=== PATIENT | male | born 1935 | race Caucasian/White ===

== ENCOUNTER 2017-05-30 13:03 | Observation (INO) | payer MEDICARE, OTHER ==
[~2017-05-30] VITALS: Ht 180.3 cm; Wt 75.0 kg
--- OUTSIDE RECORDS SUMMARY | ~2017-05-30 | XMS | Clinical Summary ---
Demographics + + + | Address | [address] | | | [place] [address] | + + + | Home Phone | | + + + | Preferred Language | Unknown | + + + | Marital Status | | + + + | Bahai Affiliation | Unknown | + + + | Race | Unknown | + + + | Ethnic Group | Unknown | + + + Author + + + | Author | [facility] | | | and [place] | + + + | Organization | [facility] | | | and [place] | + + + | Address | Unknown | + + + | Phone | Unavailable | + + + Support + + +---------+ + | Name | Relationship | Address | Phone | + + +---------+ + | Juan M Diop | ECON | Unknown | | + + +---------+ + | REZA DAUGHERTY | ECON | Unknown | | + + +---------+ + Care Team Providers + +------+ + | Care Sweeper Driver Name | Role | Phone | + +------+ + | Paolo Pringle MD | PP | | + +------+ + Allergies No Known Allergies Current Medications + + +-------+---------+------+------+-------+ | Prescription | Sig. | Disp. | Refills | Star | End | Statu | | | | | | t | Date | s | | | | | | Date | | | + + +-------+---------+------+------+-------+ | Misc Natural | Take 1 tablet by | | | 01/03 | | Activ | | Products | mouth daily | | | 20 | | e | | (GLUCOSAMINE | | | | 10 | | | | CHONDROITIN ADV) | | | | | | | | TABS | | | | | | | + + +-------+---------+------+------+-------+ | levetiracetam | Take 2 by mouth | | | 01/03 | | Activ | | (KEPPRA) 750 MG | twice a day. | | | 11/22 | | e | | tablet | | | | 10 | | | + + +-------+---------+------+------+-------+ | losartan (COZAAR) | Take 50 mg by mouth | | | 01/03 | | Activ | | 50 mg tablet | Daily. | | | 11/22 | | e | | | | | | 10 | | | + + +-------+---------+------+------+-------+ | NIFEdipine (ADALAT | Take 30 mg by mouth | | | 01/03 | | Activ | | CC) 30 mg 24 hr | Daily. | | | 4/20 | | e | | tablet | | | | 10 | | | + + +-------+---------+------+------+-------+ | | Inhale 1 puff into | | | | | Activ | | albuterol-ipratropiu | the lungs 2 times | | | | | e | | m (COMBIVENT | daily. | | | | | | | RESPIMAT) 100-20 | | | | | | | | mcg/puff inhaler | | | | | | | + + +-------+---------+------+------+-------+ | finasteride | Take 5 mg by mouth | | | | | Activ | | (PROSCAR) 5 mg | Daily. | | | | | e | | tablet | | | | | | | + + +-------+---------+------+------+-------+ | ciprofloxacin | Take 250 mg by mouth | | | | | Activ | | (CIPRO) 250 mg | 2 times daily. | | | | | e | | tablet | | | | | | | + + +-------+---------+------+------+-------+ | | Take 1 tablet by | | | | | Activ | | sulfamethoxazole-tri | mouth 2 times daily. | | | | | e | | methoprim (BACTRIM | | | | | | | | DS) 800-160 mg per | | | | | | | | tablet | | | | | | | + + +-------+---------+------+------+-------+ Active Problems + + + | Problem | Noted Date | + + + | Acute pain of both knees | 01/23/2016 | + + + | DDD (degenerative disc disease), lumbar | 12/08/2015 | + + + | Foraminal stenosis of lumbar region | 12/08/2015 | + + + | Bilateral lumbar radiculopathy | 12/08/2015 | + + + | Chronic left shoulder pain | 12/08/2015 | + + + | SLEEP APNEA | | + + + | SEIZURE DISORDER, COMPLEX PARTIAL | | + + + Social History + +-------+ [...] + +---------+ + | Alcohol Use | Drinks/We | oz/Week | Comments | | | ek | | | + + +---------+ + | Yes | 0 | 0.0 | 1 beer per month | | | Standard | | | | | drinks or | | | | | | | | | | equivalen | | | | | t | | | + + +---------+ + + + + | Sex Assigned at | Date Recorded | | | | + + + | Not on file | | + + + Last Filed Vital Signs + + + + | Vital Sign | Reading | Time Taken | + + + + | Blood Pressure | 146/69 | 10/12/2016 1400 PST | + + + + | Pulse | 79 | 10/12/2016 1402 PST | + + + + | Temperature | 36.9 C (98.4 F) | 10/12/2016 1120 PST | + + + + | Respiratory Rate | 18 | 10/12/2016 1330 PST | + + + + | Oxygen Saturation | 98% | 10/12/2016 1402 PST | + + + + | Inhaled Oxygen | - | - | | Concentration | | | + + + + | Weight | 75.8 kg (167 lb) | 10/12/2016743 PST | + + + + | Height | 177.8 cm (5' 10") | 10/12/2016743 PST | + + + + | Body Mass Index | 23.96 | 10/12/2016743 PST | + + + + Plan of Treatment + + + + + | Health Maintenance | Due Date | Last Done | Comments | + + + + + | Vaccine: | | | | | Dtap/Tdap/Td (1 - | 6 | | | | Tdap) | | | | + + + + + | Vaccine: | | | | | Pneumococcal 65+ | 2 | | | | Low/Medium Risk (1 | | | | | of 2 - PCV13) | | | | + + + + + | Statin Therapy | | | | | (optimal intensity) | 5 | | | + + + + + | Vaccine: Influenza | | | | | (Season Ended) | 8 | | | + + + + + Results Not on filefrom Last 3 Months Insurance + +--------+ +--------+ +---------+ | Payer | Benefi | Subscriber | Type | Phone | Address | | | t Plan | ID | | | | | | / | | | | | | | Group | | | | | + +--------+ +--------+ +---------+ | MEDICARE | MEDICA | xxxxxxxxxx | Medica | [phone] | | | | RE | | re | [phone] | | | | PART A | | | | | | | AND B | | | | | + +--------+ +--------+ +---------+ | | TRICAR | xxxxxxxxx | Indemn | [phone] | | | | E FOR | | ity | [phone] | | | | LIFE | | | | | + +--------+ +--------+ +---------+ + +--------+ +--------+ + + | Guarantor Name | Accoun | Relation to | Date | Phone | Billing Address | | | t Type | Patient | of | | | | | | | | | | + +--------+ +--------+ + + | RACHNA DIOP | Person | Self [birth year] | Home: | [facility] | | | al/[address] | | [phone] | [phone] | [address] [place] | | | [place] | | | [phone] | + +--------+ +--------+ + +
--- OUTSIDE RECORDS SUMMARY | ~2017-05-30 | XMS | Clinical Summary ---
Demographics + + + | Address | [address] | | | [place] [address] | + + + | Home Phone | | + + + | Preferred Language | Unknown | + + + | Marital Status | Single | + + + | Temple Affiliation | Unknown | + + + [...] Team Providers + +------+ + | Care Steel Welder Name | Role | Phone | + +------+ + PP | Unavailable | + +------+ + Source Comments JOVANI is fully live on both [facility] and [facility] Allergies Not on File Current Medications Not on file Active Problems Not [...] on file | | + + + Plan of Treatment + + + + + | Health Maintenance | Due Date | Last Done | Comments | + + + + + | INFLUENZA VACCINE | | | | | (FLU SHOT) | 8 | | | + + + + + Results Not on filefrom Last 3 Months"
[~2017-05-30 13:03] MED LIST: ADALAT CC30 MG PO; ASPIRIN EC81 MG PO; CIPROFLOXACIN500 MG PO; COMBIVENT RESPIM4 GM INH; COZAAR50 MG PO; FINASTERIDE1 MG; FINASTERIDE5 MG PO; GLUCOSAMINE &1 EAC1 PO; KEFLEX500 MG PO; KEPPRA250 MG PO; KEPPRA750 MG PO; NIFEDIPINE20 MG PO; UROXATRAL10 MG PO; ZETIA10 MG PO
[2017-05-30] MEDS ORDERED: NIFEDIPINE ER30 M1 PO (14:05)
[2017-05-30] MEDS ORDERED: LOSARTAN POTASS50 MG PO (14:05)
[2017-05-30] MEDS ORDERED: B-12500 MCG PO (14:06)
--- NOTE | 2017-11-25 08:54 | NUR ---
11/25/17 0854 Brie Longoria 0843 PT ARRIVED IN PACU SLEEPY. CBI TURNED OFF AT THIS TIME.
--- NOTE | 2017-11-25 10:44 | NUR ---
PT PROVIDED JELLO AND WARM BLANKET. PT CBI CLAMPED OFF ON ARRIVAL TO DS RM 5. PT URINE RED WITH SMALL CLOT PRESENT IN CATHETER TUBING. CBI UNCLAMPED AND STARTED AGAIN. WILL MONITOR AND TITRATE IRRIGATION URINE GETS LIGHT PINK IN COLOR. PT GIVEN GLASSES AND CELL PHONE PER REQUEST. CALL LIGHT AT PT LEFT SIDE, NO C/O'S AT THIS TIME.
--- NOTE | 2017-11-25 10:56 | NUR ---
CARVALHO CATHETER EMPTIED OF 2025 MLS RED URINE. BP TAKEN AGAIN ON LEFT ARM, 156/81. LOWER THAN PREVIOUS ASSESSMENT.
--- NOTE | 2017-11-25 11:56 | NUR ---
[id number]: CARVALHO CATHETER EMPTIED OF 2450 RED URINE. CBI BAGS CHANGED AND IRRIGATION TITRATED. PT UP OUT OF BED AND AMBULATING HALLWAY WITH RN ASSIST. PT AMBULATES WELL AND STATES, "HE FEELS GOOD." DIETARY CALLED AND SOUP AND RADHA ORDERED FOR PT. PT RESTING IN BED WITH SCD'S IN PLACE AND CALL LIGHT AT LEFT SIDE WATCHING TV.
--- NOTE | 2017-11-25 12:29 | NUR ---
2450 MLS RED URINE EMPTIED FROM CBI CARVALHO. URING LIGHT RED, PINK TINGED IN TUBING, CBI SLOWED DOWN. PT LUNCH ARRIVED.
--- NOTE | 2017-11-25 12:54 | NUR ---
CARVALHO EMPTIED OF 2500 MLS PINK, RED URINE. CBI TUBING LIGHT PINK IN COLOR, CBI CLAMPED OFF. WILL MONITOR TUBING FOR 1 HR FOR LIGHT PINK TO CLEAR URINE. PT TOLERATES LUNCH WELL. ICED WATER REFILLED. CALL LIGHT REMAINS AT LEFT SIDE, PT RESTING IN BED WATCHING TV.
--- NOTE | 2017-11-25 13:38 | NUR ---
PT UP TO BR "WANTS TO DEFICATE" AMB WELL. CATHETER RED WITH SEDIMENT IN TUBING. NOT TOLERATING CBI BEING CLAMPED.
--- NOTE | 2017-11-25 14:34 | NUR ---
CARVALHO EMPTIED OF 950 MLS BRIGHT RED URINE. NEW BAGS HUNG ON CBI. CBI FLOWING ON FAST DRIP FROM ONE BAG. PT RESTING IN BED WATCHING TV, CALL LIGHT AT SIDE.
--- NOTE | 2017-11-25 14:37 | NUR ---
CALLED DR. KAY' OFFICE. SPOKE TO SHYANN REGARDING PT NOT TOELRATING CLAMPED CBI. WILL CONTINUE TO MONITOR AND AWAIT ORDERS FROM .
--- NOTE | 2017-11-25 15:11 | NUR ---
[id number]: DR. KAY IN PT ROOM TO ASSESS CBI. VERBAL ORDERS TO KEEP CBI CLAMPED, HANG NEW BAG OF LR FOR 75ML/HR AND NOTIFY HER IN 45 MINUTES OF OUTPUT. EMPTIED 900 MLS BRIGHT RED URINE FROM CARVALHO BAG. 1515: DR. KAY CALLED DS UNIT AND WOULD LIKE PT ON SLOW IRRIGATION AND HAS DECIDED TO ADMIT HIM OVERNIGHT TO MS UNIT FOR FURTHER OBSERVATION. DR. KAY STATES SHE WILL PUT IN ORDERS FOR CBC AND BMP LABS IN AM. SEE NEW ORDERS.
--- NOTE | 2017-11-25 15:12 | OR ---
[facility] [address] [place], [place] [address] Signed DATE OF OPERATION: 11/25/2017 SURGEON: Demetria Kay MD PREOPERATIVE DIAGNOSES: 1. History of benign prostatic hypertrophy with lower urinary tract symptoms. 2. Long-standing bladder outlet obstruction. 3. Regrowth of prostate adenoma, status post laser transurethral resection of the prostate. POSTOPERATIVE DIAGNOSES: 1. History of benign prostatic hypertrophy with lower urinary tract symptoms. 2. Long-standing bladder outlet obstruction. 3. Regrowth of prostate adenoma, status post laser transurethral resection of the prostate. 4. Bladder mass. NAMES OF PROCEDURES: 1. Transurethral resection of the prostate, limited. 2. Transurethral resection of bladder tumor-small. 3. Urethral dilation. ANESTHESIA: Spinal. ESTIMATED BLOOD LOSS: Minimal. COMPLICATIONS: None. SPECIMENS: 1. Prostate chips from regrowth of prostatic adenoma, sent to pathology for evaluation. 2. Fragments of bladder mass, also sent to pathology for evaluation. DRAINS: A 22-Uzbek 3-way Lenz catheter, connected to low-flow continuous bladder irrigation. INDICATIONS FOR PROCEDURE: Mr. Diop is a very pleasant 82-year-old gentleman with a history of BPH with lower Electronically Signed By: DEMETRIA KAY MD 11/25/17 1512 PATIENT NAME: RACHNA DIOP OPERATIVE REPORT DATE OF : 37 REPORT #: [id number] PHYSICIAN: DEMETRIA KAY MD PCP: LISA BOUDREAUX MD REPORT IS CONFIDENTIAL AND NOT TO BE RELEASED WITHOUT AUTHORIZATION [facility] [address] [place], [place] [address] Signed urinary tract symptoms, who presented to my clinic late last year with complaints of recurrence of his weak force of stream and difficulties emptying his bladder. He had undergone a laser TURP in the past. In April of 2017, he underwent a diagnostic cystoscopy, which revealed regrowth of the prostatic adenoma on the left lateral wall of the prostatic urethra. At that time, cystoscopy revealed no other abnormalities. He presents today to undergo resection of the regrowth of his prostatic adenoma. OPERATIVE FINDINGS: 1. On cystoscopy, the patient has a diffuse grade 3 to 4 bladder wall trabeculation noted. Bilateral ureteral orifices are noted to be in their normal anatomic location effluxing urine. Of note, there was an approximately 3 mm papillary bladder mass located just medial and superior to the right ureteral orifice. 2. Ureteroscopy reveals the presence of regrowth of prostatic adenoma, mostly on the left lateral wall of the prostate. During today's resection, I removed the regrowth of adenomatous tissue in the left lateral wall of the prostate, along with circumferentially around the bladder neck. 3. The 3 mm bladder tumor was resected carefully as it was just medial to the left ureteral orifice. After resection, I cauterized the biopsy bed. All the while being sure that there was no damage to the right ureteral orifice done. At the end of the resection and cauterization of the bladder mass, IV fluorescein was given, which confirmed adequate efflux of urine from the right ureteral orifice. 4. At the end of the procedure, a 22-Uzbek 3-way Lenz catheter was inserted into the patient's bladder, and connected to a low-flow CBI. DESCRIPTION OF PROCEDURE: After informed consent was obtained, the patient was taken back to the operating room. He was transferred from the gurney to the operating room table, where spinal anesthesia was induced. He was placed in the dorsal lithotomy position and his genitalia were prepped and draped in standard sterile fashion. His urethra was dilated from 22 to 32-Uzbek with using Mary sounds without difficulty. After the patient's urethra was adequately dilated, the resectoscope was inserted via a 26-Uzbek sheath without difficulty. Repeat cystoscopy was performed. Please see the findings. I began my resection of the prostatic adenoma using a bipolar loop and focus primarily on the left lateral wall of the prostate. Once that was adequately resected, I did re-resect the bladder neck and a portion of the right lateral wall of the prostatic urethra. I then removed the loop and replaced with bipolar button at which point in time, I cauterized the prostatic urethra circumferentially thereafter. There was a small amount of prostate chips that I collected and sent to pathology for evaluation. I then focused my attention on the bladder mass. I removed the bipolar button and placed the loop back into the resectoscope. I then resected the small papillary mass just medial to the right ureteral orifice very carefully. I did resect down to level of bladder muscle in the trigone area. The specimen was sent in a separate specimen cup to pathology. I Electronically Signed By: DEMETRIA KAY MD 11/25/17 6630 PATIENT NAME: RACHNA DIOP OPERATIVE REPORT DATE OF : 37 REPORT #: [id number] PHYSICIAN: DEMETRIA KAY MD PCP: LISA BOUDREAUX MD REPORT IS CONFIDENTIAL AND NOT TO BE RELEASED WITHOUT AUTHORIZATION [address] [address] Signed then very carefully cauterized the area, all the while keeping an eye on the right ureteral orifice. Once I was finished with cauterization, I asked Anesthesia to give the patient fluorescein, which was then noted to be effluxing from both the right and left ureteral orifices. Once I was satisfied with both resections, the patient's bladder was then drained and a 22-Uzbek 3-way Lenz catheter was then inserted and connected to low-flow continuous bladder irrigation. The procedure was then terminated. The patient tolerated the procedure well without any complication. He will now be transferred to the postanesthesia care unit in stable condition. DISPOSITION: Since the amount of resection of the prostate was minimal today, I do believe that the patient will be stable enough to be discharged home later this afternoon in the company of his family. He will be discharged to home with his 3-way catheter to gravity drainage. He has been scheduled to return to clinic this to undergo a voiding trial with catheter removal. He will be sent home today with Cipro 250 p.o. b.i.d. for a total of 7 days, along with Percocet 5/325 p.o. q.8 hours p.r.n. pain, dispense #15. He will undergo a voiding trial later this week and then will be scheduled to return to clinic again in approximately 2 to 3 weeks to discuss the results of his bladder biopsy. MD MEENA Sales/ISAÍAS /[id number] Copies: ~ Electronically Signed By: DEMETRIA KAY MD 11/25/17 1512 PATIENT NAME: RACHNA DIOP OPERATIVE REPORT DATE OF : 37 REPORT #: [id number] PHYSICIAN: DEMETRIA KAY MD PCP: LISA BOUDREAUX MD REPORT IS CONFIDENTIAL AND NOT TO BE RELEASED WITHOUT AUTHORIZATION
--- NOTE | 2017-11-25 17:10 | NUR ---
1650 EMPTIED CARVALHO BAG 1400MLS RED DRAINAGE.
--- NOTE | 2017-11-25 17:15 | NUR ---
PT ARRIVED TO FLOOR VIA STRETCHER, TRANSFERRED TO BED WITH MINIMAL ASSIST. CARVALHO IN PLACE DRAINING WELL WITH BRIGHT RED DRAINAGE. PT ALERT AND ORIENTED, DENIES PAIN, NAUSEA, OR OTHER CONCERNS. IV INFUSING WNL.
--- NOTE | 2017-11-25 17:30 | NUR ---
BP 182/90, PT ASYMPTOMATIC OTHER THAN MINOR HEADACHE. HR 60, SATS 100% ON RA. NOTIFIED DR. KAY. RECIEVED TELEPHONE ORDER FOR IV METOPROLOL.
--- NOTE | 2017-11-25 18:38 | NUR ---
PATIENT RESTING IN BED. RN IN ROOM. RN NOTIFIED OF ELEVATED BLOOD PRESSURE. CALL LIGHT IN REACH. NO OTHER NEEDS AT THIS TIME.
--- NOTE | 2017-11-25 19:00 | NUR ---
RECEIVED REPORT FROM DAY SHIFT RN. PATIENT IS HAD SOME DRAINAGE FROM HIS AROUND THE CARVALHO. PATIENT IS CURRENTLY BEING CLEANED BY THE ENGINE BUILDER. PATIENT DENIES ANY NEEDS. PATIENT DENIES ANY PAIN. NO FURTHER NEEDS NOTED. CALL LIGHT IN REACH.
[2017-11-25] MEDS ORDERED: PROCARDIA XL30 MG PO (19:08)
[2017-11-25] MEDS ORDERED: COZAAR50 MG PO (19:08)
--- NOTE | 2017-11-25 19:10 | NUR ---
Medications reconciled using pharmacy records and patient interview
--- NOTE | 2017-11-25 19:58 | NUR ---
PT UP TO RESTROOM WITH SBA, NOTED SOME BLOOD LEAKING AROUND CATH. BLOOD CLEANED UP. CONT FOLY TURNED DOWN, URINE STARTTING TO TURN LIGHT PINK.
--- NOTE | 2017-11-25 20:45 | NUR ---
PATIENT ASSESMENT COMPLETED. PATIENT HAS CONTINUOUS BLADDER IRRIGATION IN PLACE AND OUPUT IS LIGHT PINK AND A FEW CLOTS ARE NOTED. PATIENT GIVEN EVNEING MEDICATIONS PER ORDER. PATIENT DENIES ANY PAIN AT THIS TIME. RT IN ROOM ASSISTING IN SETTING UP PATIENTS HOME CPAP. PATIENT IS REFUSING SCDS AT THIS TIME. PATIENT EDUCATED ON THE IMPIRTANCE OF USING SCDS. PATIENT CONTINUES TO DENY. WILL CONTINUE TO ENCOURAGE PATIENT TO WEAR THEM. NO FURTHER NEEDS NOTED. CALL LIGHT IN REACH.
--- NOTE | 2017-11-25 23:25 | NUR ---
PATIENTS CARVALHO EMPTIED AND RECORDED. PATIENTS URINE OUPUT REMAINS LIGHT PINK. PATIENT IS RESTING IN BED WEARING HIS HOME CPAP. PATIENT AWOKEN MOMENTARILY. PATIENT DENIES ANY PAIN. NO NEEDS NOTED. CALL LIGHT IN REACH.
--- NOTE | 2017-11-26 01:08 | NUR ---
PATIENT ASSISTED TO MOVE TO THE CHAIR. PATIENT HAS CONTINOUS BLADDER IRRIGATION GOING. NEW BAG HUNG FOR IRRIGATION. CARVALHO EMPTIED AND RECORDED. NO NEEDS NOTED. CHAIR ALARM IN PLACE.
--- NOTE | 2017-11-26 02:44 | NUR ---
PATIENTS VITALS TAKEN AND RECORDED. NO NEEDS NOTED AT THIS TIME. CONTINUOUS BLADDER IRRIGATION CONTINUES. URINE OUPUT IS LIGHT PINK. CALL LIGHT IN [facility].
--- NOTE | 2017-11-26 04:41 | NUR ---
PATIENTS CARVALHO EMPTIED. PATIENT STILL HAS CONTINUOUS BLADDER IRRIGATION GOING AT THIS TIME. PATIENT IS RESTING IN BED WITH EYES CLOSED. BREATHING IS EVEN AND UNLABORED. RR 17. CALL LIGHT IN REACH.
--- NOTE | 2017-11-26 05:01 | NUR ---
PATIENT RESTED ON AND OFF THROUGHOUT THE SHIFT. PATIENT IA ON A REG DIET AND TOLERATING IT WELL, NO COMPLAINTS OF NAUSEA. PATIENT IS ON RA. VON REFUSED SCDS DEPISTE EDUCATION. PATIENT HAS A FOLY IN PLACE WITH CBI. PATIENT IS A SBA AND IS STEADY ON HIS FEET. PATIENT IS AAOX3. PATIENT HAS IV FLUIDS INFUSING. PATIENT DENIED ANY PAIN. PATIENT USES CALL LIGHT APPROPRIATELY.
--- NOTE | 2017-11-26 05:36 | NUR ---
PATIENTS MORNING MEDICATIONS GIVEN PER ORDER. PATIENT DENIES ANY PAIN AT THIS TIME. PATIENTS CBI WAS TURNED OFF FOR ABOUT 20 MINUTES AND PATIENTS OUTPUT IN CARVALHO TUBING WENT FROM CLEAR/LIGHT PINK TO ALMOST RED. CBI TURNED BACK UP. WILL CONTINUE TO MONITOR. PATIENT DENIES ANY NEEDS. CALL LIGHT IN REACH.
--- NOTE | 2017-11-26 07:02 | NUR ---
SPOKE WITH . CBI TURNED OFF AND WILL REASSES IN 30 MINUTES.
--- NOTE | 2017-11-26 07:57 | NUR ---
UP DATED WB. EMPYED TERP. FRESH ICE WATER AND APPLE SAUCE.
--- NOTE | 2017-11-26 08:18 | NUR ---
THIS RN TO BEDSIDE FOR MORNING ASSESSMENT. PT CONCERNED ABOUT WHEN HE WILL GO HOME. THIS RN NOTICED A CHANGE IN CATHETER DRAINAGE. NOW DARK RED AND NO LONGER TRANPARENT. MD CALLED. MD COMING TO UNIT TO ASSESS PT.
--- NOTE | 2017-11-26 08:45 | NUR ---
THIS RN BACK TO BEDSIDE. ASSESSMENT DONE. MD TO BEDSIDE. MD ORDERS NPO STATUS FOR PT AND STATES HE WILL MOST LIKELY RETURN TO SURGERY EARLY THIS AFTERNOON R/T BLEEDING. PT DISCUSSES SITUATION WITH DOCTOR. MEDICATION GIVEN. PT MADE NPO WITH LAST SOLID FOOD (APPLE SAUCE) AT 0730 THIS MORNING. PT QUESTIONS ANSWERED. PT ASSISTED TO FIND HIS PHONE AND CONTACT FAMILY. VITALS TAKEN. PT STATES HIS QUESTIONS HAVE BEEN ANSWERED AND HE HAS NO ADDITIONAL REQUESTS OR COMPLAINTS AT THIS TIME. BED RAILS UP. CALL LIGHT WITHIN REACH. BED ALARM ON.
--- NOTE | 2017-11-26 08:45 | NUR ---
PATIENT SITTING UP IN BED WATCHING TV. RN IN ROOM. NO OTHER NEEDS AT THIS TIME.
--- NOTE | 2017-11-26 10:02 | NUR ---
PATIENT RESTING IN BED WATCHING TV. ORAL CARE DONE. HANDS AND FACE WASHED. CALL BUTTON IN REACH. NO OTHER NEEDS AT THIS TIME.
--- NOTE | 2017-11-26 10:04 | NUR ---
THIS RN TO ROOM TO CHECK ON PT. READING KINDAL. NO REQEUSTS OR COMPLAINTS. BLADDAR IRRIGATION RUNNING. FLUID IN CARVALHO BACK NOW TRANSPARENT/RED. DIRECT CUSTOMER SERVICE REPRESENTATIVE AT BEDSIDE DOING ADL CARE.
--- NOTE | 2017-11-26 10:37 | NUR ---
PT CALL LIGHT ON. PT REQUESTS ASSISTANCE UP TO RESTROOM. PT CLIMBING OUT OF BED. TANGLED IN TUBING. PT ASSISTED UP TO RESTROOM. PT BACK TO BED WITHOUT INCIDENT. CATHETER SECURED. PT WORKING ON [employer]. NO ADDITIONAL REQUESTS OR COMPLAINTS AT THIS TIME. BED RAILS UP. CALL LIGHT WITHIN REACH. BED ALARM ON.
--- NOTE | 2017-11-26 11:34 | NUR ---
FOCUSSED ASSESSMENT DUE. THIS RN TO BEDSIDE. FLUIDS AND ABX FOR SURGERY HUNG. CARVALHO ASSESSED, DRINAING CONTINOUSLY TRANSPARENT RED DRAINAGE. PT RESTING WITH EYES CLOSED, AWAKENS TO VOICE. FOCUSED ASSESSMENT DONE. NEW BLADDER IRRIGATION BAG HUNG. RR = 16 BPM. BED RAILS UP. CALL LIGHT WITHIN REACH. BED ALARM ON.
--- NOTE | 2017-11-26 12:50 | NUR ---
PATIENT RESTING IN BED WATCHING TV. THIS LOW PRESSURE BOILER TENDER ASSISTED THE PATIENT WITH A HIBBA CLEASE AND CARVALHO CATH CARE. CALL BUTTON IN REACH. NO OTHER NEEDS AT THIS TIME.
--- NOTE | 2017-11-26 15:20 | NUR ---
11/26/17 1520 Brie Longoria 1446 PT ARRIVED IN PACU SLEEPY. CARVALHO WITH CBI RUNNING. URINE PALE YELLOW. AT BEDSIDE. 1515 EMPTIED 700ML OF URINE AND IRRIGATION FROM CARVALHO BAG.
--- NOTE | 2017-11-26 15:49 | NUR ---
PATIENT ARRIVED FROM SURGERY. BLADDER CLOTS EVACUATED/BLEEDING CAUTERIZED PER ALIS CANTRELL. PATIENT ABLE TO TRANSFER SELF FROM [facility] TO BED. CBI AT A SLOW DRIP, URINE IS CURRENTLY YELLOW.
--- NOTE | 2017-11-26 15:58 | NUR ---
THIS RN TO ROOM FOR HAND OFF. HAND OFF REPORT TAKEN FROM ALIS MONTANO. PT AWAKENS TO VOICE BUT FALLS QUICKLY BACK TO SLEEP. ASSESSMENT DONE. CARVALHO DRAINING CLEAR YELLOW AT THIS TIME. SEE PREVIOUS NURSES NOTE R/T PACU HAND OFF. BED RAILSUP CALL LIGTH WITHIN REACH. BED ALARM ON.
--- NOTE | 2017-11-26 17:30 | NUR ---
PATIENT SITTING UP IN BED. CALL BUTTON IN REACH. NO NEEDS AT THIS TIME.
--- NOTE | 2017-11-26 18:02 | NUR ---
ASSESSMENT DUE. THIS RN TO BEDSIDE. PT AWAKE AND WATCHING TV. PT TOERLATING PO JELLOW AND JUICE. PT REQUESTS DINNER. ORDER PLACED. ASSESSMENT DONE. CARVALHO IRRIGATION REMAINS LIGHT YELLOW. PT DENIES PAIN AND NAUSEA. PT CONTINUES WATCHING TV. NO ADDITIONAL REQUESTS OR COMPLAINTS AT THIS TIME. BED RAILS UP. CALL LIGHT WITHIN REACH. BED ALARM ON.
--- NOTE | 2017-11-26 18:29 | NUR ---
PT HERE FOR TURP. CONTINIOUS BLADDER IRRIGATION DARKENED TO WILL BLOOD TODAY. PT RETURNED TO SURGERY FOR CAUTERIZATION. BACK TO UNIT, STILL ON CONTINIOUS BLADDER IRRIGATION, NOW CLEAR YELLOW URINE. NO PAIN, NO NAUSEA. ADVANCED TO REGULAR DIET. PT HOPING TO GO HOME TOMORROW. PT ON KEPPRA FOR CHRONIC SEIZURES, NO SZ DURING THIS STAY. CPAP AT NIGHT FOR SLEEP.
--- NOTE | 2017-11-26 18:39 | NUR ---
CALLED R/T BLADDER IRRIGATION SOLUTION. WILL CONTINUE TO USE NORMAL SALINE FOR BLADDER IRRIGATION. LABS ORDERD BY . ORDER PLACED. LAB CALLED.
--- NOTE | 2017-11-26 19:25 | NUR ---
REPORT RECIEVED FROM DAY SHIFT RN. PATIENT RESTING IN BED WATCHING TV. PATIENT DENIES ANY NEEDS AT THIS TIME. CALL LIGHT WITHIN REACH.
--- NOTE | 2017-11-26 20:05 | NUR ---
PATIENT ASSESSMENT COMPLETED. PATIENT RESTING IN BED. 2000 MEDICATIONS GIVEN PER ORDER. VITAL SIGNS AND I&O COMPLETED. PATIENT 99 PERCENT OXYGEN SATURATION ON RA. PATIENT ASSISTED WITH CPAP. PATIENT DENIES ANY PAIN AT THIS TIME. CATH CARE DONE. PATIENT ON CONTINUOUS FLUIDS. YELLOW COLORED URINE NOTED IN CARVALHO. CALL LIGHT WITHIN REACH.
--- NOTE | 2017-11-26 20:55 | NUR ---
DR FERNÁNDEZ IN TO SEE PATIENT. CONTINUOUS BLADDER IRRIGATION TURNED OFF BY RN PER DOCTOR ORDER. WILL CONTINUE TO MONITOR. PATIENT RESTING IN BED WITH EYES CLOSED AND CPAP ON. CALL LIGHT WITHIN REACH. PATIENT DENIES ANY NEEDS AT THIS TIME.
--- NOTE | 2017-11-26 21:35 | NUR ---
PATIENT RESTING IN BED WITH EYES CLOSED AND CPAP ON. RR 16. CARVALHO EMPTIED AND RECORDED. CALL LIGHT WITHIN REACH.
--- NOTE | 2017-11-26 22:30 | NUR ---
NURSES ALERTED TO ROOM BY BED ALARM.PATIENT REPOSITIONED IN BED. PATIENT RESTING IN BED WITH CPAP ON. CARVALHO ASSESSED. PATIENTS BED ALARM IS ON. PATIENT DENIES ANY DENIES ANY NEEDS AT THIS TIME. PATIENT EDUCATED TO USE CALL LIGHT. CALL LIGHT WITHIN REACH.
--- NOTE | 2017-11-27 01:50 | NUR ---
PATIENT RESTING IN BED WITH EYES CLOSED. VITAL SIGNS AND I&OS DOCUMENTED. PATIENT ASSESSMENT COMPLETED. PATIENT DENIES ANY OTHER NEEDS AT THIS TIME. PATIENT ORIENTED TO TIME. CALL LIGHT WITHIN REACH. BED ALARM ON.
--- NOTE | 2017-11-27 04:30 | NUR ---
PATIENT IS RESTING IN BED WITH EYES CLOSED. BREATHING IS EVEN AND UNLABORED, RR 16. PATIENTS CBI REMAINS CLAMPED. URINE OUTPUT QS.
--- NOTE | 2017-11-27 05:01 | NUR ---
PATIENT ON CONTINUOUS FLUIDS. PATIENT ON RA AND WEARS A CPAP AT NIGHT. PATIENT ON BEDREST. PATIENTS CBI TURNED OFF AT 2100. PATIENT STATES NO PAIN OR NAUSEA. PATIENT RESTED THROUGHOUT NIGHT. BED ALARM ON. REGULAR DIET. PATIENT REFUSES SCDS. URINE OUTPUT QS, DARKER IN COLOR, CONCENTRATED, AND NO CLOTS PRESENT.
--- NOTE | 2017-11-27 06:15 | NUR ---
PATIENT RESTING IN BED. PATIENT DENIES PAIN. CARVALHO ASSESSED AND OUTPUT RECORDED. VITAL SIGNS TAKEN AND ASSESSMENT COMPLETED. BED ALARM ON. PATIENT DENIES ANY NEEDS AT THIS TIME. CALL LIGHT WITHIN REACH. I&OS DOCUMENTED. FRESH WATER GIVEN. PATIENT REFUSES SCDS.
--- NOTE | 2017-11-27 08:20 | OR ---
[facility] [address], [place] [address] Signed DATE OF OPERATION: 11/26/2017 SURGEON: Demetria Kay MD PREOPERATIVE DIAGNOSIS: Persistent gross hematuria status post redo TURP and TURBT, small. POSTOPERATIVE DIAGNOSES: Persistent gross hematuria status post redo TURP and TURBT, small. Residual hemorrhage coming from the prostatic fossa, likely secondary to recent redo TURP. NAMES OF PROCEDURES: 1. Diagnostic cystoscopy with blood clot evacuation. 2. Transurethral cauterization of prostatic fossa. ANESTHESIA: Spinal. ESTIMATED BLOOD LOSS: 25 mL. COMPLICATIONS: None. SPECIMENS: None. DRAINS: A 22-Nepalese three-way Lenz catheter, connected to CBI. INDICATIONS FOR PROCEDURE: Mr. Diop is a very pleasant 82-year-old gentleman who underwent a redo TURP and TURBT, small, yesterday without complication. Multiple attempts were made to wean the patient off his CBI; however, his hematuria persisted. On postoperative day 1, the CBI was stopped and approximately 1 hour later, the patient's Lenz catheter was draining a dark red urine with clots noted. At that time the decision was made for the patient to return back to the operating room to undergo cystoscopy with blood clot evacuation and possible cauterization of either his prostatic fossa or of the biopsy site from the previous TURBT, small. Electronically Signed By: DEMETRIA KAY MD 11/27/17 0820 PATIENT NAME: RACHNA DIOP OPERATIVE REPORT DATE OF : 37 REPORT #: [id number] PHYSICIAN: DEMETRIA KAY MD PCP: LISA BOUDREAUX MD REPORT IS CONFIDENTIAL AND NOT TO BE RELEASED WITHOUT AUTHORIZATION [facility] [address] [place], [place] [address] Signed OPERATIVE FINDINGS: 1. On cystoscopy, there was a very large well-organized blood clot present within the bladder. This blood clot was irrigated from the bladder successfully without complication. 2. Upon further inspection of the resection site, where the previous 3 mm bladder tumor was noted, there does not appear to be any active hemorrhage coming from this area. There is active efflux of urine coming from the right ureteral orifice also noted. 3. Upon inspection of the prostatic urethra, I did notice areas of moderate oozing coming from the venous sinuses present in both the anterior bladder wall along with the left lateral wall of the prostatic fossa. These areas were cauterized and the bleeding was easily controlled. After cauterizing a good deal the other half of the prostatic fossa, I was satisfied that all of the active bleeding was now under control. 4. A three-way Lenz catheter was inserted into the patient's bladder and connected to low-flow continuous bladder irrigation. DESCRIPTION OF PROCEDURE: After informed consent was obtained, the patient was placed on the [facility] where he underwent placement of spinal anesthesia. Once that was done, he was placed in the dorsal lithotomy position and his genitalia prepped and draped in a standard sterile fashion. Using a 30-degree lens and via a 26-Nepalese sheath, a resectoscope was inserted into the patient's bladder. The large, well-organized bladder clot was immediately visualized. I removed the resectoscope and placed a Caroline syringe, where I thoroughly irrigated the blood clots from the patient's bladder. I then repeated cystoscopy and I was able to see the entire bladder wall once the blood clots were cleared. I re-evaluated the resection site of the 3 mm bladder mass that was resected yesterday. Please see above findings. Once I was satisfied that there was no active bleeding coming from this area, I re-evaluated the patient's bladder in its entirety from the lateral cagle, floor, dome, and trigone areas and did not appreciate any other bleeding from any of these sites. Then, I took a closer look into the patient's prostatic urethra. There was still a decent amount of clot present within the prostatic urethra that I was able to manually place into the patient's bladder with the resectoscope. I then was able to appreciate some venous-appearing oozing coming from the anterior bladder wall as well as from the left lateral wall of the prostatic fossa. These areas were cauterized with a bipolar button device. I then cauterized the remaining areas, particularly on the anterior bladder wall and left lateral wall of the prostatic urethra. Once I was satisfied that all of the bleeding was now under control, I re-irrigated the patient's bladder again and was able to flush out some additional blood clots. The resectoscope was then removed. A 22-Nepalese three-way Lenz catheter was inserted into the patient's bladder and connected to continuous bladder irrigation. The procedure was then terminated. The patient tolerated the procedure well without any complication. He will now be transferred back to the postanesthesia care unit in stable condition. Electronically Signed By: DEMETRIA KAY MD 11/27/17 0820 PATIENT NAME: RACHNA DIOP OPERATIVE REPORT DATE OF : 37 REPORT #: [id number] PHYSICIAN: DEMETRIA KAY MD PCP: LISA BOUDREAUX MD REPORT IS CONFIDENTIAL AND NOT TO BE RELEASED WITHOUT AUTHORIZATION [address] [place], [place] [address] Signed MD MEENA Sales/MODL /[id number] Copies: ~ Electronically Signed By: DEMETRIA KAY MD 11/27/17 0820 PATIENT NAME: RACHNA DIOP OPERATIVE REPORT DATE OF : 37 REPORT #: [id number] PHYSICIAN: DEMETRIA KAY MD PCP: LISA BOUDREAUX MD REPORT IS CONFIDENTIAL AND NOT TO BE RELEASED WITHOUT AUTHORIZATION
--- NOTE | 2017-11-27 08:37 | NUR ---
PATIENT AWAKE AND ALERT, READY TO D/C HOME, URINE EMPTIED FROM THE CARVALHO, URINE IS CLEAR YELLOW. TEACHING DONE REGARDING CATHATER CARE AT HOME, CLEANING THE CATHATER SITE DAILY WITH SOAP AND WATER AND CHANGING THE DRAINAGE BAG TO A LEG BAG DURING THE DAYTIME. PATIENT IS VERY KNOWLEDGABLE HE HAS HAD A CARVALHO BEFORE AT HOME. QUESTIONS ANSWERED. AM MEDICATION GIVEN.
--- NOTE | 2017-11-27 09:05 | NUR ---
ALIS GARCIA STATES THAT THE PATIENT IS DRESSED AND READY TO BE DISCHARGED. NO OTHER NEEDS AT THIS TIME.
--- NOTE | 2017-11-27 09:24 | NUR ---
PATIENT GIVEN D/C INSTRUCTIONS QUESTIONS ANSWERED AND PHARMACY IN TO SEE THE PATIENT.
--- NOTE | 2017-11-27 10:31 | NUR ---
Patient unsteady at discharge. Had planned to drive himself home. I talked to his visitor, who was willing to drive him home
== END 2017-11-27 09:15 | disposition home or self-care (01) ==
LOC: DS 06-03 06:45 → EDSTATUS 06-10 06:45 → OPS 06-10 06:45 → MS 11-25 05:35 → DS 11-25 05:35 → MS 11-25 05:36 → EDSTATUS 11-25 06:45 → DS 11-25 06:45 → MS 11-25 06:45 → DS 11-25 17:22 → MS 11-26 09:22 → DS 11-26 09:23 → MS 11-27 09:15 → DS 11-27 09:15 → MS 11-27 09:15
PROVIDERS: ADMIT Urology
PROC: 0TBB8ZX Excision of Bladder, Via Natural or Artificial Opening Endoscopic, Diagnostic (ICD-10-PCS; principal; 2017-11-25 06:45)
PROC: 0VB08ZZ Excision of Prostate, Via Natural or Artificial Opening Endoscopic (ICD-10-PCS; principal; 2017-11-25 06:45)
PROC: 0TCB8ZZ Extirpation of Matter from Bladder, Via Natural or Artificial Opening Endoscopic (ICD-10-PCS; 2017-11-26)
PROC: 0V508ZZ Destruction of Prostate, Via Natural or Artificial Opening Endoscopic (ICD-10-PCS; 2017-11-26)
DX: N40.1 Benign prostatic hyperplasia with lower urinary tract symptoms (principal); N99.820 Postprocedural hemorrhage of a genitourinary system organ or structure following a genitourinary system procedure; R31.0 Gross hematuria; I10 Essential (primary) hypertension; J44.9 Chronic obstructive pulmonary disease, unspecified; R33.8 Other retention of urine; G47.33 Obstructive sleep apnea (adult) (pediatric); Z79.82 Long term (current) use of aspirin; Z79.899 Other long term (current) drug therapy; E78.5 Hyperlipidemia, unspecified; Z87.891 Personal history of nicotine dependence; G40.209 Localization-related (focal) (partial) symptomatic epilepsy and epileptic syndromes with complex partial seizures, not intractable, without status epilepticus; C67.9 Malignant neoplasm of bladder, unspecified
CPT/HCPCS: 00910; 00914; 36415; 80048; 85025; 86850; 86900; 86901; 86920; 88305; 88307; 88341; 88342; 94640; 94762; 96360; 96361; G0378; J0696; J2250; J2704; J3010; J7030; J7120

== ENCOUNTER 2017-12-12 07:56 | Emergency (ER) | payer MEDICARE, OTHER ==
[~2017-12-12] VITALS: Ht 180.3 cm; Wt 75.0 kg
[~2017-12-12 07:56] MED LIST changes: +B-12500 MCG PO; +LOSARTAN POTASS50 MG PO; +NIFEDIPINE ER30 M1 PO; +PROCARDIA XL30 MG PO
== END 2017-12-12 08:18 | disposition home or self-care (01) ==
LOC: ED 07:56
DX: Z00.8 Encounter for other general examination (principal)

== ENCOUNTER 2017-12-22 15:29 | Emergency (ER) | payer MEDICARE, OTHER ==
[~2017-12-22] VITALS: Ht 180.3 cm; Wt 75.0 kg
[2017-12-23] MEDS ORDERED: LUBRICANT EYE D15 M2 OU (15:04)
== END 2017-12-22 19:46 | disposition home or self-care (01) ==
LOC: ED 15:29
PROC: BT40ZZZ Ultrasonography of Bladder (ICD-10-PCS; principal; 2017-12-22)
PROC: 0T9B70Z Drainage of Bladder with Drainage Device, Via Natural or Artificial Opening (ICD-10-PCS; principal; 2017-12-22)
DX: R31.9 Hematuria, unspecified (principal); I10 Essential (primary) hypertension; J44.9 Chronic obstructive pulmonary disease, unspecified; Z87.891 Personal history of nicotine dependence; Z79.899 Other long term (current) drug therapy
CPT/HCPCS: 51702; 51798; 80053; 81001; 85025; 85610; 85730; 99284

== ENCOUNTER 2017-12-23 00:35 | Observation (INO) | payer MEDICARE, OTHER ==
[~2017-12-23] VITALS: Ht 180.3 cm; Wt 81.8 kg
--- NOTE | 2017-12-23 03:18 | NUR ---
RECIEVED PHONE REPORT FROM WILLIAM SNELL. PREPARING ROOM NOW.
--- NOTE | 2017-12-23 03:41 | NUR ---
VITALS AND BED WEIGHT DONE AND CHARTED. CALL LIGHT WITHIN REACH.
--- NOTE | 2017-12-23 03:50 | NUR ---
RECIEVED PT TO THE FLOOR VIA STRETCHER. PT REOPPRTS PAIN OF 6/10 DILAUDID AND TORIDOL GIVEN. CBI IN PLACE. DRAINING BRIGHT RED OUTPUT. NS STARTED AT 125ML/HR. CALL LIGHT WITHIN REACH. ASSESSMENT COMPLETED. CLEAR LUNGS. CMS INTACT. HEART TONES NORMAL. NO EDEMA NOTED. PULSE +2 X4. BOWEL TONES ACTIVE X4. PT IS A/O X4.
--- NOTE | 2017-12-23 06:34 | NUR ---
ADMITTED LAST NIGHT. CBI AT THIS TIME. PAIN IN TIP OF PENIS. DILAUDID AND TORIDOL GIVEN AT 0340. PT IS NPO. NS INFUSING AT 125.SBA. ADMITTED FOR OBS.
--- NOTE | 2017-12-23 07:47 | NUR ---
DR. KAY IN TO SEE PT, DISCUSSED PLAN FOR PT TO GO TO OR THIS AM FOR CONTINUED BLEEDING FROM BLADDER. URINE IN CATHETER BRIGHT RED WHEN DR. KAY STOPPED THE CBI, CBI RESUMED WITH RATE SET BY DR. KAY.
--- NOTE | 2017-12-23 08:19 | NUR ---
THIS DOCUMENTATION ANALYST ASSISTED PATIENT WITH PRESURGERY WIPE DOWN. PATIENT DRESSED IN CLEAN GOWN. CARVALHO DRAINED. RN IN ROOM. CALL LIGHT IN REACH. NO OTHER NEEDS AT THIS TIME.
--- NOTE | 2017-12-23 08:39 | NUR ---
3000 ML BAG NS CBI COMPLETED, PT HAD 3475 OUT TOATAL, SO 475 ML OUT. URINE IS DARK PINK, CBI CONTINOUS. PT DENIED PAIN. DENIED BLADDER SPASMS OR PAIN.
--- NOTE | 2017-12-23 09:23 | NUR ---
PATIENT OUT TO SURGERY, LINENS CHANGED, ROOM STRAIGHTENED.
--- NOTE | 2017-12-23 10:58 | HP ---
[facility] [address] [place], [place] [address] Signed ADMISSION DATE: 12/23/2017 CHIEF COMPLAINT: Gross hematuria. HISTORY OF PRESENTING ILLNESS: Mr. Diop is a very pleasant 82-year-old gentleman who is well known to me. He has a history of BPH with lower urinary tract symptoms and is status post laser TURP in October 2016. He was initially a patient of Dr. Garcia, who had him on alfuzosin and finasteride for management of his lower urinary tract symptoms. 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 He thus underwent a laser TURP in October 2016. He presented to my clinic approximately 2 or 3 months ago with persistent lower urinary tract symptoms. Cystoscopy at the time revealed re-growth of the prostate adenoma, particularly on the left lobe. About a month ago, he underwent a TURP of prostate re-growth. Later that day, he developed persistent gross hematuria, which required a cystoscopy with blood clot evacuation and cauterization of the prostatic urethra on the following day, which was November 26. His urine cleared nicely and he was sent home thereafter. He reports this morning that he presented to the emergency department yesterday after he was using a weed whacker, which he says made what was initially mild gross hematuria into rather severe hematuria. For 2-3 weeks postoperatively, he did notice occasional tiny blood clot. Approximately a week ago, his urine was checked at my office and did not have any evidence of infection. After using a weed whacker, the blood in his urine became significantly worse, prompting him to be seen in the emergency department yesterday afternoon. An 18-Polish catheter was placed and his bladder was irrigated successfully and he was sent home. He returned later in the evening with drainage of blood around the catheter and was found to have a very large clot present within the drainage tube. His hemoglobin had also dropped 2 points down to 12.7, which prompted a call to me. He was admitted directly and placed n.p.o. and given IV antibiotics and placed on continuous bladder irrigation. He now presents to undergo a repeat cystoscopy with blood clot evacuation and possible cauterization of his prostatic urethra. Positive for gross hematuria. Negative for nausea, vomiting, fevers, chills, or chest pain. PAST MEDICAL HISTORY: As follows: 1. BPH with LUTS and subsequent urinary retention. 2. COPD. 3. Obstructive sleep apnea. 4. Hypertension. Electronically Signed By: DEMETRIA KAY MD 12/23/17 1058 PATIENT NAME: RACHNA DIOP HISTORY AND PHYSICAL DATE OF : 37 REPORT #: [id number] PHYSICIAN: DEMETRIA KAY MD PCP: LISA BOUDREAUX MD REPORT IS CONFIDENTIAL AND NOT TO BE RELEASED WITHOUT AUTHORIZATION [facility] [address] [place] [id number] Signed 5. Hyperlipidemia. 6. History of thrombocytopenia. 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 8. Simple liver cysts. 9. Complex partial seizure disorder. SURGICAL HISTORY: The patient underwent a laser TURP in October 2016 and then a repeat TURP in November 2017 and a cystoscopy with blood clot evacuation and cauterization of the prostatic urethra on the following day, November 26, 2017. FAMILY HISTORY: Noncontributory. SOCIAL HISTORY: The patient denies any alcohol or drug use. No tobacco use. He is a former smoker and quit in 1972. ALLERGIES: He has no known drug allergies. MEDICATIONS: B12 of 500 mcg 1 tablet once a day. Nifedipine ER 30 mg tablet daily. Losartan. Potassium 50 mg daily. Glucosamine 500 mg daily. Levetiracetam 750 mg daily. Finasteride 5 mg daily. PHYSICAL EXAMINATION: VITAL SIGNS: The patient is currently afebrile. His pulse is running in the 70s to 80s. Blood pressure is in the 100s to 130s over 70s to 80s. GENERAL: On exam, he is alert and oriented and answering all questions appropriately. CARDIOVASCULAR: Reveals a regular rate and rhythm. LUNGS: Clear. ABDOMEN: Soft and nondistended. He has a 22-Polish 3-way Lenz catheter in place that is actively on continuous bladder irrigation. When I turn down the irrigation, his urine turns a dark mcclendon red. He is moving all extremities equally. LABORATORIES: White blood cell count 11.7, hemoglobin 12.7, hematocrit 38.6, platelets of 111. BMP: Sodium 135, potassium 4, chloride 108, CO2 of 25, BUN 15, creatinine 0.84. GFR is at 88. ASSESSMENT: Electronically Signed By: DEMETRIA KAY MD 12/23/17 1058 PATIENT NAME: RACHNA DIOP HISTORY AND PHYSICAL DATE OF : 37 REPORT #: [id number] PHYSICIAN: DEMETRIA KAY MD PCP: LISA BOUDREAUX MD REPORT IS CONFIDENTIAL AND NOT TO BE RELEASED WITHOUT AUTHORIZATION [address] [address] Signed 1. Gross hematuria. 2. History of benign prostatic hypertrophy, status post redo transurethral resection of prostate approximately 1 month ago. 3. History of thrombocytopenia. PLAN: The patient has been n.p.o. since yesterday evening and is now headed to the operating room to undergo cystoscopy with blood clot evacuation and possible cauterization of his prostatic urethra and bladder neck. The patient has undergone the procedure before and is aware of the risks and benefits including bleeding, infection, and the risk of urinary incontinence. He understands these risks and would like to proceed. Once we finished with the procedure, he will return to the floor for continued observation and pain control as needed. Demetria Kay MD AR/MODL /[id number] Copies: ~ Electronically Signed By: DEMETRIA KAY MD 12/23/17 1058 PATIENT NAME: RACHNA DIOP HISTORY AND PHYSICAL DATE OF : 37 REPORT #: [id number] PHYSICIAN: DEMETRIA KAY MD PCP: LSIA BOUDREAUX MD REPORT IS CONFIDENTIAL AND NOT TO BE RELEASED WITHOUT AUTHORIZATION
--- NOTE | 2017-12-23 11:24 | NUR ---
12/23/17 1124 Zenaida Lyles CARVALHO EMPTIED WITH IRRIGATION AND URINE MIXED; 550 ML NOTED
--- NOTE | 2017-12-23 11:42 | NUR ---
PT RETURNED TO FLOOR FROM PACU VIA STRETCHER, ACCOMPANIED BY ALIS SALDAÑA. PT TRANSFERED FROM STRETCHER TO BED WITH 4 PERSON ASSIST. CARVALHO CATHETER IN PLACE, DRAINING CLEAR YELLOW URINE. HAS CBI RUNNING. PT DENIED PAIN. DENIED NAUSEA.
--- NOTE | 2017-12-23 12:30 | NUR ---
PT'S URINE REMAINS DILUTE, CLEAR YELLOW. PT DENIES PAIN, DENIES BLADDER SPASMS, DENIES NAUSEA. TOLERATED TOMATO SOUP AND CRACKERS, WELL DECAF COFFEE. PT'S SON AT BEDSIDE.
--- NOTE | 2017-12-23 13:59 | NUR ---
PT IN BED, RESTING WITH EYES CLOSED, AROUSED TO SOUND, ALERT, ORIENTED. DENIED PAIN, DENIED NAUSEA, DENIED FEELINGS OF BLADDER FULLNESS OR SPASMS. REMAINS ON SLOW CBI, AND URINE REMAINS DILUTE, CLEAR YELLOW. NO CLOTS OR HINTS OF RED OR PINK NOTED IN URINE. CARVALHO DRAINING WITHOUT ISSUE.
--- NOTE | 2017-12-23 14:55 | NUR ---
PT IN BED, RESTING. DENIES PAIN, DENIES FEELINGS OF BLADDER SPASMS OR FEELING OF BLADDER FULLNESS. URINE YELLOW, SMALL AMOUNT OF SEDIMENT NOTED, BUT URINE NOT PINK OR RED. CBI INFUSING SLOWLY. NO CLOTS NOTED, AND CARVALHO IS DRAINING WELL. PT RETURNED TO FLOOR FROM PACU WITH 2 PARTIALLY FULL CBI 3L NS BAGS HANGING. BOTH BAGS COMPLETE, AND 1900 ML URINE TOTAL OUT. UNABLE TO DETERMINE EXACT AMOUNT IN AND OUT, BAGS WERE CHANGED, AND CARVALHO WAS EMPTIED IN OR AND PACU.
[2017-12-23] MEDS ORDERED: LUBRICANT EYE D15 M2 OU (15:04)
--- NOTE | 2017-12-23 16:25 | NUR ---
PT IN BED, RESTING WITH EYES CLOSED. AROUSED TO SOUND OF DOOR OPENING. PT DENIED PAIN, DENIED FEELING OF BLADDER FULLNESS OR SPASMS. DENIED NAUSEA. IS DRINKING WATER WITHOUT ISSUE. CBI CONTINUES AT SLOW RATE. URINE YELLOW, VERY SMALL AMOUNT OF SEDIMENT NOTED IN CATHETER TUBING. NO PINK OR REDNESS NOTED. CATHETER DRAINING WELL.
--- NOTE | 2017-12-23 16:42 | NUR ---
SPOKE WITH DR. KAY VIA TELEPHONE, GAVE UPDATE ON PT. PER DR. KAY, CLAMPED CBI. CATHETER BAG EMPTIED, 1050 ML YELLOW URINE WITH SMALL AMOUNT SEDIMENT OUT. PT HAS NS INFUSING AT 75 CC/HR. PT DENIED NEEDS AT THIS TIME.
--- NOTE | 2017-12-23 18:10 | NUR ---
PT DENIED FEELING OF BLADDER DISTENTION OR SPASMS. CBI REMAINS CLAMPED, AND URINE IS NOW BLUSH COLORED, WITH SOME SMALL CLOTS NOTED IN TUBING, BUT CARVALHO IS STILL DRAINING WITHOUT ISSUE. PT DENIED NEEDS.
--- NOTE | 2017-12-23 18:43 | NUR ---
PT TO OR WITH DR. KAY THIS AFTERNOON, HAD CLOTS REMOVED FROM BLADDER AND CAUTERIZATION. RETURNED TO FLOOR FROM PACU ON CBI, URINE WAS YELLOW URINE WITH SMALL AMOUNT OF SEDIMENT, AND NO CLOTS NOTED. AT 1640, CBI WAS TURNED OFF/CLAMP[facility], URINE HAD REMAINED ABOVE NOTED. PT'S URNE NOW PINK, NOT BRIGHT, WITH SMALL CLOTS. CATHETER STILL DRAINING WITHOUT ISSUE. PT HAS NS INFUSING AT 75 CC/HR. PT HAS DENIED PAIN, FEELING OF BLADDER FULLNESS, OR SPASMS, WELL NAUSEA THIS SHIFT. PT ON A CARDIAC DIET, TOLERATING WELL. LUNGS CLEAR WITH DIMINISHED BASES. PT ON RA, OXYGEN SATURATION LEVEL IN 90S. PT ALERT, ORIENTED X 4. ON IV ABX.
--- NOTE | 2017-12-23 19:15 | NUR ---
REPORT RECEIVED FROM DAY SHIFT NURSE. PATIENT RESTING IN BED WATCHING TV. FAMILY IN ROOM AT BEDSIDE. PATIENT DENIES ANY NEEDS AT THIS TIME. CALL LIGHT WITHIN REACH.
--- NOTE | 2017-12-23 20:15 | NUR ---
PATIENT RESTING IN BED WATCHING TV. FAMILY AT BEDSIDE. DR FERNÁNDEZ IN ROOM. IV FLUIDS TITRATED TO 25ML/HR PER MD. PATIENT STRICT BEDREST WITH BATHROOM PRIVILEGES. PATIENT SBA TO THE RESTROOM AND BACK INTO BED. PATIENT ABLE TO HAVE X-LARGE BM. 2100 MEDICATIONS GIVEN PER ORDER. CARVALHO DRAINING PINK TINGED URINE WITH SMALL AMOUNT OF SEDIMENT, NO CLOTS NOTED. VITAL SIGNS AND I&OS RECORDED. PATIENT DENIES PAIN. NEB TREATMENT GIVEN BY RT. PATIENTS OXYGEN SATURATION 99 ON ROOM AIR. HEART RATE 76. PATIENT ASSISTED WITH APPLYING CPAP MACHINE FOR THE NIGHT. PATIENT DENIES ANY OTHER NEEDS AT THIS TIME. CALL LIGHT WITHIN REACH.
--- NOTE | 2017-12-23 23:07 | NUR ---
PATIENT RESTING IN BED WITH EYES CLOSED. CPAP IN PLACE. PATIENTS OXYGEN SATURATION 99 ON CPAP, HEART RATE 80. CARVALHO IN PLACE, DRAINING YELLOW URINE. CALL LIGHT WITHIN REACH. IV RUNNING CONTINUOUSLY.
--- NOTE | 2017-12-24 01:30 | NUR ---
PATIENT RESTING IN BED WITH EYES CLOSED. VITAL SIGNS AND I&Os RECORDED. ASSESSMENT COMPLETED. PATIENTS OXYGEN 99 ON CPAP. HEART RATE 82. PATIENT DENIES PAIN. CARVALHO IN PLACE DRAINING YELLOW URINE, SMALL AMOUNT OF SEDIMENT NOTED. WARM BLANKET AND FRESH WATER GIVEN. IV RUNNING CONTINUOUSLY. PATIENT DENIES ANY OTHER NEEDS AT THIS TIME. CALL LIGHT WITHIN REACH.
--- NOTE | 2017-12-24 04:50 | NUR ---
PATIENT RESTED WELL THROUGHOUT THE NIGHT. CARDIAC DIET. PATIENT IS ON RA. FLUIDS RUNNING CONTINUOUSLY IN LEFT FOREARM IV. SCDS IN PLACE. STRICT BEDREST WITH BATHROOM PRIVILEGES, SBA. CONTINUOUS PULSE OX MONITOR. CBI CLAMPED 12/23/[address]HO IN PL[address], DRAINING YELLOW URINE WITH SMALL AMOUNT OF SEDIMENT. PATIENT DENIES PAIN. CPAP AT NIGHT.
--- NOTE | 2017-12-24 05:55 | NUR ---
PATIENT RESTING IN BED. ASSESSMENT COMPLETED. VITALS AND I&Os RECORDED. PATIENT DENIES PAIN. CARVALHO IN PLACE, DRAINING YELLOW URINE WITH A SMALL AMOUNT OF SEDIMENT NOTED. PATIENT DENIES ANY OTHER NEEDS AT THIS TIME. CALL LIGHT WITHIN REACH.
[2017-12-24] MEDS ORDERED: CIPRO500 MG PO (08:21)
--- NOTE | 2017-12-24 08:27 | NUR ---
PT IN BED. ATE 100% OF BREAKFAST. PERSONAL SUPPLIES AND CALL LIGHT IN REACH. CATHETER IN PLACE, DRAINING CLEAR YELLOW URINE, NO CLOTS NOTED. PT DENIES FEELING OF BLADDER FULLNESS OR SPASMS. PT DENIES PAIN OR DISCOMFORT.
[2017-12-24] MEDS ORDERED: SENOKOT-S TABL1 EACH PO (08:29)
--- NOTE | 2017-12-24 08:47 | NUR ---
CHANGED PT'S CATHETER BAG FROM 4000 ML BAG TO 2000 ML BAG, USING ASEPTIC TECHNIQUE. BAG CHANGED PER PT'S REQUEST FOR EASIER USE AT HOME.
--- NOTE | 2017-12-24 10:13 | NUR ---
GAVE PT DISCHARGE INSTRUCTIONS. QUESTIONS ASKED AND ANSWERED, AND PT VERBALIZED UNDERSTANDING. GAVE PT DISCHARGE PRINTED INSTRUCTIONS, AND WRITTEN SCRIPT, WELL APPOINTMENT REMINDER CARDS.
--- NOTE | 2017-12-24 13:05 | NUR ---
PT CALLED TO SAY HIS CARVALHO LEG BAG WAS NOT DRAINING. INSTRUCTED PT OVER PHONE ON A FEW TIPS AND HE DID NOT SEEM TO UNDERSTAND. ASKED PT TO COME BACK TO HOSPITAL TO ASSESS. PT'S SON BROUGHT BACK IN AND THIS RN AND ASSOCIATE ART DIRECTORIsma DENIS TRIED FLUSHING TO NO AVAIL. CALLED DR KAY AND SHE FLUSHED WITH 120ML. A TINY CLOT CAME OUT AND CATHETER FLUSHED AND PULLED BACK FINE. ATTACHED REGULAR CATHETER BAG TO CARVALHO AND IT APPEARED TO BE DRAINING FINE. INSTRUCTED PT ON EMPTYING BAG AND HAD HIM DO SEVERAL TIMES. PT STRUGGLED WITH UNDOING CLIP BUT WAS ABLE TO DO IT EVENTUALLY. PT TO FOLLOW UP WITH DR KAY ON THUS.
--- NOTE | 2017-12-24 19:00 | OR ---
[facility] [address], [place] [address] Signed DATE OF OPERATION: 12/23/2017 SURGEON: Demetria Kay MD PREOPERATIVE DIAGNOSES: 1. Gross hematuria. 2. 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 3. History of thrombocytopenia. POSTOPERATIVE DIAGNOSES: 1. Gross hematuria. 2. 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 3. History of thrombocytopenia. NAMES OF PROCEDURES: 1. Diagnostic cystoscopy with blood clot evacuation. 2. Transurethral cauterization of prostatic fossa. ANESTHESIA: MAC with LMA. COMPLICATIONS: None. BLOOD LOSS: 25 mL. DRAINS: A 24-Palestinian three-way Lenz catheter, connected to CBI. INDICATIONS FOR PROCEDURE: Mr. Diop is a very pleasant 82-year-old gentleman with a history of longstanding BPH with lower urinary tract symptoms, who presented to the emergency room last night with a day or so history of rather severe gross hematuria. He has a history of BPH and he underwent a laser TURP in October 2016, followed by a bipolar TURP in November of 2017. He said that a couple of days ago, he decided to use a "weed whacker" which seem to make his gross hematuria significantly worse. He had called the clinic before noting mild amounts of gross hematuria and his urine was checked last week and was found to not be Electronically Signed By: DEMETRIA KAY MD 12/24/17 4150 PATIENT NAME: RACHNA DIOP OPERATIVE REPORT DATE OF : 37 REPORT #: [id number] PHYSICIAN: DEMETRIA KAY MD PCP: LISA PRINGLE MD REPORT IS CONFIDENTIAL AND NOT TO BE RELEASED WITHOUT AUTHORIZATION [facility] [address], [place] [address] Signed infected. The patient has been admitted and is now going to undergo cystoscopy with blood clot evacuation and possible cauterization of his prostatic urethra. OPERATIVE FINDINGS: 1. On cystoscopy, there was relatively large, poorly organized blood clot that was evacuated from the patient's bladder. Repeat cystoscopy revealed some areas of minor Lenz catheter trauma, however, there was no evidence of any suspicious masses, lesions, or stones within the bladder. Bilateral ureteral orifices are still normal anatomic location. 2. Upon inspection of the prostatic urethra, the patient appears to have been bleeding primarily from the anterior bladder neck area. Evidence of bleeding was also present near the area of what was his median lobe of the prostate. I do not appreciate any obvious areas of hemorrhage coming from the bladder. These actively bleeding areas present within the prostatic urethra were easily cauterized using a bipolar button device. 3. Once the patient's urine was clear, a 24-Palestinian three-way Lenz catheter was inserted into the patient's bladder and connected to low-flow CBI. DESCRIPTION OF PROCEDURE: After informed consent was obtained, the patient was taken back to the operating room. He was transferred from the [facility] to the operating room table, where general anesthesia was induced. He was placed in the dorsal lithotomy position and his genitalia prepped and draped in standard sterile fashion. His existing 22-Palestinian three-way Lenz catheter was removed prior to preparation. Once he was in adequate position and adequately prepped, a 26-Palestinian sheath was inserted into the patient's urethra using the obturator. The obturator was removed and there was a good deal of bloody urine that returned. A resectoscope with the bipolar button was inserted into the patient's bladder and a quick cystoscopy revealed the presence of a poorly organized blood clot within the patient's bladder. This blood clot was evacuated using a Caroline syringe. I reinserted the cystoscope and performed a thorough cystoscopy. I did not appreciate any obvious areas of bleeding from the bladder. Most of the bleeding appeared to be coming from the anterior bladder neck as well as the prostatic fossa. I then began cauterization of the prostatic fossa and anterior bladder neck using the bipolar button device. These areas cauterized easily and the patient's bleeding was stopped rather quickly. I repeated a cystoscopy of the patient's bladder and again did not appreciate any pathology, other than some mild Lenz catheter trauma. There was an area of denuded tissue present where his previous prostatic median lobe was located. There were otherwise no other abnormalities noted. Once all the bleeding had been successfully cauterized, the rigid resectoscope was then removed. A 24-Palestinian three-way Lenz catheter was then inserted into the patient's bladder and connected to low-flow CBI. The procedure was then terminated. The patient tolerated the procedure well without any complication. He will now be transferred to the post anesthesia care unit in stable condition. Electronically Signed By: DEMETRIA KAY MD 12/24/17 1900 PATIENT NAME: RACHNA DIOP OPERATIVE REPORT DATE OF : 36 REPORT #: [id number] PHYSICIAN: DEMETRIA KAY MD PCP: LISA PRINGLE MD REPORT IS CONFIDENTIAL AND NOT TO BE RELEASED WITHOUT AUTHORIZATION [place] [phone] Signed DISPOSITION: I will discuss the results of today's procedure when the patient once he awakes from anesthetic. He will be maintained on CBI throughout the day and it will be slowly weaned off to keep his urine clear to light pink in color. I anticipate that he will be discharged to home tomorrow on 12/24/2017 after he receives his 3rd dose of IV Rocephin. His diet will be advanced as tolerated today and he will be given pain control as needed. He will be scheduled to return to clinic on the 26 of December for a voiding trial. He will continue to keep his postoperative appointment on January 06 with me for his routine postoperative followup and to discuss his pathology results. MD MEENA Sales/TRISHL /[id number] cc: Lisa Pringle MD Copies: LISA PRINGLE MD ~ Electronically Signed By: DEMETRIA KAY MD 12/24/17 1900 PATIENT NAME: RACHNA DIOP OPERATIVE REPORT DATE OF : 37 REPORT #: [id number] PHYSICIAN: DEMETRIA KAY MD PCP: LISA PRINGLE MD REPORT IS CONFIDENTIAL AND NOT TO BE RELEASED WITHOUT AUTHORIZATION
== END 2017-12-24 10:45 | disposition home or self-care (01) ==
LOC: ED 00:35 → MS 00:37
PROVIDERS: ADMIT Urology
PROC: 0TCB8ZZ Extirpation of Matter from Bladder, Via Natural or Artificial Opening Endoscopic (ICD-10-PCS; 2017-12-23)
PROC: 0V508ZZ Destruction of Prostate, Via Natural or Artificial Opening Endoscopic (ICD-10-PCS; principal; 2017-12-23 09:00)
DX: N42.1 Congestion and hemorrhage of prostate (principal); D69.6 Thrombocytopenia, unspecified; I10 Essential (primary) hypertension; G47.33 Obstructive sleep apnea (adult) (pediatric); J44.9 Chronic obstructive pulmonary disease, unspecified; E78.5 Hyperlipidemia, unspecified; K76.89 Other specified diseases of liver; G40.209 Localization-related (focal) (partial) symptomatic epilepsy and epileptic syndromes with complex partial seizures, not intractable, without status epilepticus; Z87.430 Personal history of prostatic dysplasia; Z86.73 Personal history of transient ischemic attack (TIA), and cerebral infarction without residual deficits; Z87.891 Personal history of nicotine dependence; Z79.899 Other long term (current) drug therapy
CPT/HCPCS: 00910; 36415; 51700; 80048; 85025; 85027; 86850; 86900; 86901; 86920; 94640; 94762; 96374; 96375; 96376; 99285; G0378; J0696; J1170; J1885; J2405; J2704; J3010; J7030

== ENCOUNTER 2017-12-25 08:01 | Emergency (ER) | payer MEDICARE, OTHER ==
[~2017-12-25] VITALS: Ht 180.3 cm; Wt 81.8 kg
[~2017-12-25 08:01] MED LIST changes: +CIPRO500 MG PO; +LUBRICANT EYE D15 M2 OU; +SENOKOT-S TABL1 EACH PO
== END 2017-12-25 08:29 | disposition home or self-care (01) ==
LOC: ED 08:01
DX: R39.9 Unspecified symptoms and signs involving the genitourinary system (principal)

== ENCOUNTER 2018-04-06 09:45 | Emergency (ER) | payer MEDICARE, OTHER ==
[~2018-04-06] VITALS: Ht 180.3 cm; Wt 77.2 kg
== END 2018-04-06 10:04 | disposition home or self-care (01) ==
LOC: ED 09:45
DX: M79.89 Other specified soft tissue disorders (principal); R23.8 Other skin changes

== ENCOUNTER 2020-02-08 13:48 | Emergency (ER) | payer MEDICARE, OTHER ==
[~2020-02-08] VITALS: Ht 180.3 cm; Wt 74.8 kg
--- OUTSIDE RECORDS SUMMARY | ~2020-02-08 | XMS | Encounter Summary ---
Demographics + + + | Address | [address] | | | [place] [address] | + + + | Home Phone | | + + + | Preferred Language | Unknown | + + + | Marital Status | | + + + | Baptist Affiliation | Unknown | + + + | Race | Unknown | + + + | Ethnic Group | Unknown | + + + Author + + + | Author | [facility] | | | and [place] | + + + | Organization | [facility] | | | and [place] | + + + | Address | Unknown | + + + | Phone | Unavailable | + + + Support + + +---------+ + | Name | Relationship | Address | Phone | + + +---------+ + | Juan M Diop | ECON | Unknown | | + + +---------+ + | Ammy Valadez | ECON | Unknown | | + + +---------+ + Care Team Providers + +------+ + | Care Photographic Laboratory Technician Name | Role | Phone | + +------+ + | Paolo Pringle MD | PCP | | + +------+ + Encounter Details +--------+---------+ + + + | Date | Type | Department | Care Team | Description | +--------+---------+ + + + | 10/12/ | Surgery | [facility] | Mandeep Allred MD | Cyber Laser Prostate | | 2017 | | MED CTR OR [facility] | [address] | Vaporization | | | | [address] | [place], [place] | | | | | [place], [place] | [address] | | | | | [address] | [phone] | | | | | [phone] | | | +--------+---------+ + + + Social History + +-------+ +--------+ + | Tobacco Use | Types | Packs/Day | Years | Date | | | | | Used | | + +-------+ +--------+ + | Former Smoker | | | | Quit: 08/05/1973 | + +-------+ +--------+ + + +---+---+ + | Smokeless Tobacco: | | | Quit: | | Former User | | | 08/05/18 | | | | | 73 | + +---+---+ + + + +---------+ + | Alcohol Use | Drinks/Week | oz/Week | Comments | + + +---------+ + | Yes | 0 Standard drinks | 0.0 | 1 beer per month | | | or equivalent | | | + + +---------+ + + + + | Sex Assigned at | Date Recorded | | | | + + + | Not on file | | + + + documented as of this encounter Last Filed Vital Signs + + + + + | Vital Sign | Reading | Time Taken | Comments | + + + + + | Blood Pressure | 138/84 | 10/12/2016 11:35 AM | | | | | PST | | + + + + + | Pulse | 81 | 10/12/2016 11:35 AM | | | | | PST | | + + + + + | Temperature | 36.9 C (98.4 F) | 10/12/2016 11:20 AM | | | | | PST | | + + + + + | Respiratory Rate | 19 | 10/12/2016 11:35 AM | | | | | PST | | + + + + + | Oxygen Saturation | 96% | 10/12/2016 11:35 AM | | | | | PST | | + + + + + | Inhaled Oxygen | - | - | | | Concentration | | | | + + + + + | Weight | 75.8 kg (167 lb) | 10/12/2016 7:44 AM | | | | | PST | | + + + + + | Height | 177.8 cm (5' 10") | 10/12/2016 7:44 AM | | | | | PST | | + + + + + | Body Mass Index | 23.96 | 10/12/2016 7:44 AM | | | | | PST | | + + + + + documented in this encounter Discharge Instructions Instructions Hugo De Jesus RN - 10/12/2016Drink at least 2 quarts of liquid daily until blood clears from urine. Wait at least 10 days to resume aspirin. Finish the prescription s for the 2 antibiotics. Stop alfuzosin. Finish remaining finasteride but do not purchase additional refill. Minimize physical activity the next week. documented in this encounter Medications at Time of Discharge + + + +---------+ + + | Medication | Sig | Dispensed | Refills | Start | End Date | | | | | | Date | | + + + +---------+ + + | | Inhale 1 puff into | | 0 | | | | albuterol-ipratropiu | the lungs 2 times | | | | | | m (COMBIVENT | daily. | | | | | | RESPIMAT) 100-20 | | | | | | | mcg/puff inhaler | | | | | | + + + +---------+ + + | ciprofloxacin | Take 250 mg by mouth | | 0 | | | | (CIPRO) 250 mg | 2 times daily. | | | | | | tablet | | | | | | + + + +---------+ + + | finasteride | Take 5 mg by mouth | | 0 | | | | (PROSCAR) 5 mg | Daily. | | | | | | tablet | | | | | | + + + +---------+ + + | levetiracetam | Take 2 by mouth | | 0 | 01/17/20 | | | (KEPPRA) 750 MG | twice a day. | | | 10 | | | tablet | | | | | | + + + +---------+ + + | losartan (COZAAR) | Take 50 mg by mouth | | 0 | 01/17/20 | | | 50 mg tablet | Daily. | | | 10 | | + + + +---------+ + + | Misc Natural | Take 1 tablet by | | 0 | 01/17/20 | | | Products | mouth daily | | | 10 | | | (GLUCOSAMINE | | | | | | | CHONDROITIN ADV) | | | | | | | TABS | | | | | | + + + +---------+ + + | NIFEdipine (ADALAT | Take 30 mg by mouth | | 0 | 01/17/20 | | | CC) 30 mg 24 hr | Daily. | | | 10 | | | tablet | | | | | | + + + +---------+ + + | | Take 1 tablet by | | 0 | | | | sulfamethoxazole-tri | mouth 2 times daily. | | | | | | methoprim (BACTRIM | | | | | | | DS) 800-160 mg per | | | | | | | tablet | | | | | | + + + +---------+ + + documented as of this encounter H&P Notes Mandeep Allred MD - 10/12/2016 9:24 AM PSTNo interval change in history and physical exam . [facility] [place] ver[place] MD - 0 10/10/2016 6:17 PM [facility] Complaint urine retention Assessment Urine retention (R33.9) Benign localized hyperplasia of prostate with urinary retention (N40.1) Plan Culture, Urine Cod[address] (Rflx); Status:Active; Requested for:[id number]; Perform:[facility]; Due:07Oct2016;Ordered; For:Benign localized hyperp lasia of prostate with urinary retention; Ordered By:Mandeep Allred; Obstructing prostate and urine retention with advanced bladder wall damage despite 2 drug t herapy. Transurethral laser vaporization of the prostate is planned. Risks of infection, b leeding, loss of ejaculation, decreased urine control, decreased erection, bladder neck scar , failure to void are discussed. Urine culture today. He will take his nifedipine, Cozaar, Keppra and use Combivent prior to arrival. He will stop aspirin at this time. He has mode rate thrombocytopenia. Addendum 10/02/16 - telephone call. Urine culture recovers Pseudomonas and Klebsiella with non-overlapping antibiograms. Septra and Cipro are prescribed to begin 10/10/16. History of Present Illness This 80 year old male presented as a new patient 08/14/16 with unprovoked urine retention. He was previously followed by Dr. Garcia for obstructing prostate. Cystoscopy June 2011 noted coapting lateral lobes and a heavily trabeculated bladder with large cellules but no mucosal lesion. He was prescribed alfuzosin and finasteride. At baseline he was voiding 4- 5 times while awake and 1-2 times at night. His stream is medium caliber and continuous wit hout straining, urgency, dysuria or hematuria. With no provoking factors he developed painful 1100 cc urine retention during the night of 08/12/16 and Lenz catheter was inserted at [place]. He failed his most recent voidin g trial 09/18/16. PSA was approximately 4 at presentation in 2010. His PSA has ranged from 1.3-2.62 on finas teride. PSA was 2.06 on 06/23/16. Review of Systems Numbness in both toes. No frequent headache, daytime shortness or breath, angina. Bowels move daily with the help of prunes. Resolved hemorrhoid bleeding. Occasional dyspepsia. Ri ght brachial plexus injury playing softball many years ago. He wears CPAP. 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) Obstructive sleep apnea (G47.33) Osteoarthritis of left knee (M17.12) 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 He drinks a beer a month. Current Meds Alfuzosin HCl ER 10 MG Oral Tablet Extended Release 24 Hour; TAKE 1 TABLET DAILY; Therapy: 13Aug2016 to Recorded Aspirin EC 81 MG Oral Tablet Delayed Release; TAKE 1 TABLET DAILY DIRECTED; Therapy: 13Aug2016 to Recorded Combivent AERO; Therapy: (Recorded:24Jun2012) to Recorded Cozaar 50 MG Oral Tablet; TAKE 1 TABLET BY MOUTH TWICE DAILY; Therapy: (Recorded:14Aug2016) to Recorded Finasteride 5 MG Oral Tablet; Take 1 tablet by mouth every day; Therapy: 13Aug2016 to (Evaluate:[id number]) Recorded Glucosamine Chondroitin Plus Oral Capsule; Therapy: 13Aug2016 to Recorded Keppra 750 MG Oral Tablet; TAKE 2 TABLETS TWICE DAILY; Therapy: (Recorded:27Sep2016) to Recorded NIFEdipine ER 30 MG Oral Tablet Extended Release 24 Hour; TAKE 1 TWICE TABLET DAILY; Therapy: 13Aug2016 to Recorded Uroxatral 10 MG TBCR; Therapy: (Recorded:24Sep2016) to Recorded Allergies No Known Drug Allergies Vitals Vitals Panel Recorded: 27Sep2016 11:59AM Heart Rate: 72 Blood Pressure: 158 / 72 Weight: 168 lb BMI Calculated: 23.76 BSA Calculated: 1.95 Results/Data Results 27Sep2016 12:45PM Culture, Urine Codorus Ct (Rflx) Report Status: Final 09/30/2016 Result: >100,000 Organisms/mL Klebsiella pneumoniae >100,000 Organisms/mL Pseudomonas aeruginosa Abnormal Specimen Source: Urine, Lenz catheter Susceptibility Amoxicillin/Clavulanate: Susceptible-S Ampicillin: Resistant-R Ciprofloxacin: Resistant-R Cefazolin: Susceptible-S Nitrofurantoin: Susceptible-S Gentamicin: Susceptible-S Levofloxacin: Resistant-R Tobramycin: Susceptible-S Trimethoprim/Sulfa: Susceptible-S Tetracycline: Susceptible-S Piperacillin/Tazobactam: Susceptible-S Aztreonam: Susceptible-S Ceftazadime: Susceptible-S Ciprofloxacin: Susceptible-S Gentamicin: Susceptible-S Imipenem: Susceptible-S Tobramycin: Susceptible-S Meropenem: Susceptible-S Levofloxacin: Resistant-R Piperacillin/Tazobactam: Susceptible-S 18Sep2016 04:11PM CBC WBC: 6.0 K/uL Reference Range 4.3-11.0 RBC: 4.83 M/uL Reference Range 4.60-6.20 HGB: 14.2 g/dL Reference Range 14.0-18.0 HCT: 43.0 % Reference Range 40.0-54.0 MCV: 88.9 fL Reference Range 80.0-94.0 MCH: 29.3 pg Reference Range 26.0-33.0 MCHC: 32.9 g/dL Reference Range 31.0-36.0 RDW: 14.1 % Reference Range 11.6-16.0 PLT: 88 aL K/uL Abnormal Low Reference Range 150-375 MPV: 10.4 fL Reference Range 0.0-12.0 BMP (Basic Metabolic Panel) Sodium: 139 mmol/L Reference Range 135-145 Potassium: 3.0 mmol/L Abnormal Low Reference Range 3.6-5.0 Chloride: 100 mmol/L Reference Range 98-107 CO2: 31 mmol/L Reference Range 21-31 Anion Gap: 8 mmol/L Reference Range 3-12 Glucose: 60 mg/dL Abnormal Low Reference Range 70-100 Calcium: 8.5 mg/dL Reference Range 8.4-10.5 Urea Nitrogen, Blood: 16 mg/dL Reference Range 7-18 Creatinine: 0.8 mg/dL Reference Range 0.6-1.3 BUN/CREAT Ratio: 19.51 Glomerular Filt. Rate, Est.: >60 mL/min/1.73m2 FASTING: No [id number] 12:15PM Culture, Urine Codorus Ct (Rflx) Report Status: Final 09/20/2016 Result: No growth or <1,000 CFU/mL Specimen Source: Urine, Lenz catheter Tests EKG sinus rhythm with PVCs 09/18/16. Physical Exam Slender alert male with clear speech and normal gait. Profound right upper extremity weakn ess. Neck supple without mass. Lungs clear to auscultation. Heart has regular rate withou t murmur. No flank tenderness. Abdomen soft and nontender without mass or hernia. Circumci sed penis with indwelling 16 Portuguese Lenz. Pendulous scrotum with normal testes and spermat ic cords. External hemorrhoids. 30 g smooth prostate. Legs with mild edema. Signatures Electronically signed by : Mandeep Allred M.D.; Oct 02 2016 12:03PM PST (Author) documented in this enc ounter Procedure Notes Mandeep Allred MD - 10/12/2016 11:[facility] Pt. Name/Age/: Mandeep Diop 80 y.o. 1935 Med. Record Number: [id number] Date of admission: 10/12/2016 Date of Operation/Procedure: 10/12/2016 Preoperative Diagnosis: Urinary retention from obstructing prostate [N40.1] Post-Op Diagnosis Codes: [N40.1] Postoperative Diagnosis: Same Surgeon: Mandeep Allred MD Septic Tank Setter(s): None Anesthesia Provider(s): Anesthesiologist: Shiv Lyles MD Anesthesia Type: General Procedure(s): Cyber Laser Prostate Vaporization Operative Indications: Mandeep Diop is a 80 y.o. year old male who developed unprovoke d 1100 cc painful bladder retention 08/12/16. His prostate was smooth and estimated at 30 g size. Finasteride and alfuzosin were prescribed he failed 2 subsequent voiding trials. Pr eoperative catheter associated urine culture grew pseudomonas and Klebsiella and he began Se ptra and Cipro for nonoverlapping sensitivities two days ago. Operative Findings: Operation: After induction of general anesthetic, SCD devices were applied to the calves. Existing Lenz was removed. Legs are placed in lithotomy in Justin stirrups. Genitalia wer e prepped and draped. A 23 Portuguese continuous-flow scope was introduced with visual obturator. Pendulous and bulb ar urethra were normal. Obstructing trilobar prostate existed through 3 cm. The bladder wa s grade 4/4 trabeculated with multiple shallow cellules. Cyber laser was used on [address] Th e posterior prostate was vaporized from intravesical extent down to the proximal aspect of t he verumontanum. Right lobe was vaporized from 7 through 12:00. Left lobe was vaporized f rom 5 through 12:00. Charred debris was cleared. Hemostasis was confirmed. Ureteral orifi stephanie and the verumontanum remained unaltered. Estimated Blood Loss: 10 cc Transfused: no Drains: none Specimen (s): * No specimens in log * Complications: none Electronically Signed by: Mandeep Allred MD, 10/12/2016 11:19 [facility] documented in this enc ounter Plan of Treatment Not on filedocumented as of this encounter Procedures + +--------+ + + + | Procedure Name | Priori | Date/Time | Associated Diagnosis | Comments | | | ty | | | | + +--------+ + + + | CYSTOSCOPY PROSTATE | | 10/12/2016 | Benign prostatic | | | VAPORIZATION | | 9:26 AM | hyperplasia with | | | TRANSURETHERAL | | PST | lower urinary tract | | | | | | symptoms, | | | | | | unspecified | | | | | | morphology | | + +--------+ + + + | LABS - EXTERNAL SCAN | | 09/18/2016 | | Results for this | | | | 12:00 AM | | procedure are in the | | | | PST | | results section. | + +--------+ + + + | ECG - EXTERNAL SCAN | | 09/18/2016 | | Results for this | | | | 12:00 AM | | procedure are in the | | | | PST | | results section. | + +--------+ + + + documented in this encounter Results LABS - EXTERNAL SCAN (09/18/2016 12:00 AM PST) + + + | Narrative | Performed At | + + + | Ordered by an | | | unspecified provider. | | + + + ECG - EXTERNAL SCAN (09/18/2016 12:00 AM PST) + + + | Narrative | Performed At | + + + | Ordered by an | | | unspecified provider. | | + + + documented in this encounter Visit Diagnoses + + | Diagnosis | + + | Benign prostatic hyperplasia with lower urinary tract symptoms, unspecified morphology | + + documented in this encounter Administered Medications + +---------+ +------+------+------+ | Medication Order | MAR | Action | Dose | Rate | Site | | | Action | Date | | | | + +---------+ +------+------+------+ | lactated ringers (LR) infusion | New Bag | 10/13/19 | | | | | at 100 mL/hr, Intravenous, | | 17 9:42 | | | | | CONTINUOUS, Starting 10/12/16 | | AM PST | | | | | at 0815, Pre-op | | | | | | + +---------+ +------+------+------+ +---------+ +---+-------+---+ | New Bag | 10/13/19 | | 100 | | | | 17 8:09 | | mL/hr | | | | AM PST | | | | +---------+ +---+-------+---+ +---+---+ | | | +---+---+ + +-------+ +--------+---+---+ | phenazopyridine (PYRIDIUM) | Given | 10/13/19 | 200 mg | | | | tablet 200 mg 200 mg, Oral, | | 17 12:29 | | | | | TIMES DAILY PRN, Urinary | | PM PST | | | | | Symptoms, urinary burning., | | | | | | | Starting 10/12/16 at 1134, | | | | | | | Administer with meals., | | | | | | | Post-op/Phase II | | | | | | + +-------+ +--------+---+---+ +---+---+ | | | +---+---+ documented in this encounter
--- OUTSIDE RECORDS SUMMARY | ~2020-02-08 | XMS | Encounter Summary ---
Demographics + + + | Address | [address] | | | [place] [address] | + + + | Home Phone | | + + + | Preferred Language | Unknown | + + + | Marital Status | | + + + | Evangelical Affiliation | Unknown | + + + | Race | Unknown | + + + | Ethnic Group | Unknown | + + + Author + + + | Author | [facility] | | | and [place] | + + + | Organization | [facility] | | | and [...] Team Providers + +------+ + | Care Campus Security Director Name | Role | Phone | + +------+ + PCP | Unavailable | + +------+ + Encounter Details +--------+ + + + + | Date | Type | Department | Care Team | Description | +--------+ + + + + | 12/09/ | Hospital | [facility] | | | | 2009 | Encounter | MED CTR XRAY [address] | | | | | | [address] | | | | | | [place] [id number] | | | | | | [phone] | | | +--------+ + + + + Social History + +-------+ +--------+------+ | Tobacco Use | Types | Packs/Day | Years | Date | | | | | Used | | + +-------+ +--------+------+ | Never Assessed | | | | | + +-------+ +--------+------+ + + + | Sex Assigned at | Date Recorded | | | | + + + | Not on file | | + + + documented as of this encounter Plan of Treatment Not on filedocumented as of this encounter Visit Diagnoses Not on filedocumented in this encounter"
--- OUTSIDE RECORDS SUMMARY | ~2020-02-08 | XMS | Encounter Summary ---
Demographics + + + | Address | [address] | | | [place] [address] | + + + | Home Phone | | + + + | Preferred Language | Unknown | + + + | Marital Status | | + + + | Voodoo Affiliation | Unknown | + + + | Race | Unknown | + + + | Ethnic Group | Unknown | + + + Author + + + | Author | [facility] | | | and [place] | + + + | Organization | [facility] | | | and [...] Team Providers + +------+ + | Care Keller Machine Operator Name | Role | Phone | + +------+ + | Paolo Pringle MD | PCP | | + +------+ + Reason for Visit +--------+--------+ + | Reason | Onset | Comments | | | Date | | +--------+--------+ + | Other | 12/13/ | | | | 2015 | | +--------+--------+ + Encounter Details +--------+ + + + + | Date | Type | Department | Care Team | Description | +--------+ + + + + | 12/13/ | Telephone | [facility] | Victor Manueldaviagnes, | Other | | 2015 | | PHYSIATRY [address] | JANICE Nevarez [address] | | | | | [address] | [address] | | | | | [facility], [place] | [place] [address] | | | | | [address] | [phone] | | | | | [phone] | | | +--------+ + + + + Social History + +-------+ +--------+------+ | Tobacco Use | Types | Packs/Day | Years | Date | | | | | Used | | + +-------+ +--------+------+ | Former Smoker | | | | | + +-------+ +--------+------+ + +---+---+ + | Smokeless Tobacco: | | | Quit: | | Former User | | | 08/05/18 | | | | | 74 | + +---+---+ + + + +---------+ + | Alcohol Use | Drinks/Week | oz/Week | Comments | + + +---------+ + | Yes | 0 Standard drinks | 0.0 | rare | | | or equivalent | | | + + +---------+ + + + + | Sex Assigned at | Date Recorded | | | | + + + | Not on file | | + + + documented as of this encounter Miscellaneous Notes Telephone Encounter - Eugenie Sanchez CMA - 12/15/2015 8:44 AM PDTPatient was under the impr ession that he would be sedated for the injection. Patient was informed Dr Hodge uses a local an d that patient would not be sedated. Patient also had medication changes, changes updated in epic. elephone EncounAde Yo - 12/14/2015 11:42 AM PDTReceived call from patient regarding his injec tion appointment that is scheduled for 01/09/16. Per patient his son and spouse who are yamilet garland him to the appointment would like to take a sedative for the car ride. Patient would like to know if there are any over the counter sedative medications that he can take and will not conflict with the injection. Also patient would like some changes made to his medication [facility]. Please advise docuyessica treviño in this encounter Plan of Treatment Not on filedocumented as of this encounter Visit Diagnoses Not on filedocumented in this encounter"
--- OUTSIDE RECORDS SUMMARY | ~2020-02-08 | XMS | Encounter Summary ---
Demographics + + + | Address | [address] | | | [place] [address] | + + + | Home Phone | | + + + | Preferred Language | Unknown | + + + | Marital Status | Single | + + + | Druze Affiliation | Unknown | + + + | Race | Unknown | + + + | Ethnic Group | Other Race | + + + Author + + + | Author | [facility] | + + + | Organization | [facility] | + + + | Address | Unknown | + + + | Phone | Unavailable | + + + Care Team Providers + +------+ + | Care Slat Basket Maker Helper Machine Name | Role | Phone | + +------+ + PCP | Unavailable | + +------+ + Encounter Details +--------+ + + + + | Date | Type | Department | Care Team | Description | +--------+ + + + + | 11/25/ | Documentati | Dermatology | Unknown . | | | 2016 | on | Medical at [facility] [address] | | | | | | [address] | | | | | | Mailcode: [address] | | | | | | [facility] | | | | | | and Healing, | | | | | | Building | | | | | | Floor [place], [place] | | | | | | [address] | | | | | | [phone] | | | +--------+ + + + [...] on file | | + + + + + + + | Job Start Date | Occupation | Industry | + + + + | Not on file | Not on file | Not on file | + + + + + + + + | Travel History | Travel Start | Travel End | + + + + + + | No recent travel history available. | + + documented as of this encounter Plan of Treatment Not on filedocumented as of this encounter Visit Diagnoses Not on filedocumented in this encounter"
--- OUTSIDE RECORDS SUMMARY | ~2020-02-08 | XMS | Encounter Summary ---
Demographics + + + | Address | [address] | | | [place] [address] | + + + | Home Phone | | + + + | Preferred Language | Unknown | + + + | Marital Status | | + + + | Confucianist Affiliation | Unknown | + + + | Race | Unknown | + + + | Ethnic Group | Unknown | + + + Author + + + | Author | [facility] | | | and [place] | + + + | Organization | [facility] | | | [...] Team Providers + +------+ + | Care Communications Technician Name | Role | Phone | + +------+ + PCP | Unavailable | + +------+ + Encounter Details +--------+ + + + + | Date | Type | Department | Care Team | Description | +--------+ + + + + | 04/17/ | Abstract | [facility] | DATA MIGRATION VIJAYA | | | 2011 | | Conversion Location | SR | | | | | [address] [facility] | | | | | | [place], [place] | | | | | | [address] | | | | | | [phone] | | | +--------+ + + + [...] + + + | Blood Pressure | 130/76 | 07/18/2010 12:00 AM | | | | | PST | | + + + + + | Pulse | - | - | | + + + + + | Temperature | - | - | | + + + + + | Respiratory Rate | - | - | | + + + + + | Oxygen Saturation | - | - | | + + + + + | Inhaled Oxygen | - | - | | | Concentration | | | | + + + + + | Weight | 81.6 kg (180 lb) | 07/18/2010 12:00 AM | | | | | PST | | + + + + + | Height | 180.3 cm (5' 11") | 01/16/2010 12:00 AM | | | | | PDT | | + + + + + | Body Mass Index | 25.1 | 01/16/2010 12:00 AM | | | | | PDT | | + + + + + documented in this encounter Plan of Treatment Not on filedocumented as of this encounter Visit Diagnoses Not on filedocumented in this encounter
--- OUTSIDE RECORDS SUMMARY | ~2020-02-08 | XMS | Encounter Summary ---
Demographics + + + | Address | [address] | | | [place] [address] | + + + | Home Phone | | + + + | Preferred Language | Unknown | + + + | Marital Status | Single | + + + | Scientologist Affiliation | Unknown | + + + | Race | Unknown | + + + | Ethnic Group | Other Race | + + + Author + + + | Author | [facility] | + + + | Organization | [facility] | + + + | Address | Unknown | + + + | Phone | Unavailable | + + + Care Team Providers + +------+ + | Care Resident Care Associate Name | Role | Phone | + +------+ + PCP | Unavailable | + +------+ + Encounter Details +--------+ + + + + | Date | Type | Department | Care Team | Description | +--------+ + + + + | 12/07/ | Documentati | Neurology at | Jase Yusuf, | | | 2009 | on | [facility] & | MD [address] | | | | | Healing [address] | [place], [place] | | | | | Ave Mailcode: [place] | [address] | | | | | [facility] | [phone] | | | | | and Healing, | | | | | | [facility] | | | | | | Floor [facility] [place] | | | | | | [address] | | | | | | [phone] | | | +--------+ + + + [...]
--- OUTSIDE RECORDS SUMMARY | ~2020-02-08 | XMS | Encounter Summary ---
Demographics + + + | Address | [address] | | | [place] [address] | + + + | Home Phone | | + + + | Preferred Language | Unknown | + + + | Marital Status | Single | + + + | Jewish Affiliation | Unknown | + + + | Race | Unknown | + + + | Ethnic Group | Other Race | + + + Author + + + | Author | [facility] | + + + | Organization | [facility] | + + + | Address | Unknown | + + + | Phone | Unavailable | + + + Care Team Providers + +------+ + | Care Pharmacist Intern Name | Role | Phone | + +------+ + PCP | Unavailable | + +------+ + Encounter Details +--------+ + + + + | Date | Type | Department | Care Team | Description | +--------+ + + + + | 05/03/ | Outside | Neurophysiology | Abdifatah Dover | | | 2009 | Referral | EEG at [facility] [address] | | | | Order | [address] | [facility] | | | | | [facility] | [address] [facility] | | | | | [place], 10th Floor | [place] | | | | | [place], [place] | [address] | | | | | [address] | [phone] | | | | | [phone] | | | +--------+ + + + [...] | + +--------+ + + + | EEG ROUTINE | Routin | 12/02/2009 | | Results for this | | | e | | | procedure are in the | | | | | | results section. | + +--------+ + + + documented in this encounter Results EEG ROUTINE (12/02/2009) + + | Specimen | + + | | + + + + + | Narrative | Performed At | + + + | Patient Name: Mandeep Diop Date of : 1935 Medical | | | Record Number: [id number] Date of Test: 12/02/2009 ROUTINE EEG | | | done at [facility]: this is a routine EEG in a 74-year-old | | | man with a question of seizures. The awake background contains a | | | posteriorly dominant and symmetrically distributed 9 Hz alpha rhythm | | | that blocks with eye opening. During three minutes of | | | hyperventilation there is a mild symmetric buildup. Intermittent | | | photic stimulation produces no significant change to the EEG. Later | | | in the recording the patient is drowsy with a low voltage mixed | | | frequency background. However, a well developed stage two sleep | | | recording is not achieved. Clinical interpretation: this is a | | | normal awake and drowsy EEG. No epileptiform discharges or | | | lateralized abnormalities were identified. Jase Yusuf M.D. | | | Dept. Of Neurology | | + + + documented in this encounter Visit Diagnoses Not on filedocumented in this encounter"
--- OUTSIDE RECORDS SUMMARY | ~2020-02-08 | XMS | Encounter Summary ---
Demographics + + + | Address | [address] | | | [place] [address] | + + + | Home Phone | | + + + | Preferred Language | Unknown | + + + | Marital Status | | + + + | Rastafarian Affiliation | Unknown | + + + | Race | Unknown | + + + | Ethnic Group | Unknown | + + + Author + + + | Author | [facility] | | | and [place] | + + + | Organization | [facility] | | | and [...] Team Providers + +------+ + | Care Bridges And Buildings Supervisor Name | Role | Phone | + +------+ + | Paolo Pringle MD | PCP | | + +------+ + Encounter Details +--------+ + + + + | Date | Type | Department | Care Team | Description | +--------+ + + + + | 05/03/ | Abstract | [facility] | Alonso, | | | 2015 | | PHYSIATRY [address] | JANICE Nevarez [address] | | | | | [address] | [address] | | | | | [place], [place] | [place] [address] | | | | | [address] | [phone] | | | | | [phone] | | | +--------+ + + + + Social History + +-------+ +--------+------+ | Tobacco Use | Types | Packs/Day | Years | Date | | | | | Used | | + +-------+ +--------+------+ | Never Smoker | | | | | + +-------+ +--------+------+ + + +---------+ + | Alcohol Use | Drinks/Week | oz/Week | Comments | + + +---------+ + | Not Asked | 0 Standard drinks | 0.0 | | | | or equivalent | | [...]
--- OUTSIDE RECORDS SUMMARY | ~2020-02-08 | XMS | Encounter Summary ---
Demographics + + + | Address | [address] | | | [place] [address] | + + + | Home Phone | | + + + | Preferred Language | Unknown | + + + | Marital Status | | + + + | Taoism Affiliation | Unknown | + + + | Race | Unknown | + + + | Ethnic Group | Unknown | + + + Author + + + | Author | [facility] | | | and [place] | + + + | Organization | [facility] | | [...] Team Providers + +------+ + | Care Sustain Engineer Name | Role | Phone | + +------+ + PCP | Unavailable | + +------+ + Encounter Details +--------+ + + + + | Date | Type | Department | Care Team | Description | +--------+ + + + + | 11/24/ | Hospital | [facility] | | | | 2009 | Encounter | MED CTR LAB[facility]ORY | | | | | | [address] | | | | | | [place] | | | | | | [address] | | | | | | [phone] | | | +--------+ + + + [...]
--- OUTSIDE RECORDS SUMMARY | ~2020-02-08 | XMS | Encounter Summary ---
Demographics + + + | Address | [address] | | | [place] [address] | + + + | Home Phone | | + + + | Preferred Language | Unknown | + + + | Marital Status | Single | + + + | Methodist Affiliation | Unknown | + + + | Race | Unknown | + + + | Ethnic Group | Other Race | + + + Author + + + | Author | [facility] | + + + | Organization | [facility] | + + + | Address | Unknown | + + + | Phone | Unavailable | + + + Care Team Providers + +------+ + | Care Weigher Bulker Name | Role | Phone | + +------+ + PCP | Unavailable | + +------+ + Encounter Details +--------+ + + + + | Date | Type | Department | Care Team | Description | +--------+ + + + + | 12/07/ | Documentati | Neurology at | Jase Yusuf, | | | 2009 | on | [facility] & | MD [address] | | | | | Healing [address] | [place], [place] | | | | | Ave Mailcode: [place] | [address] | | | | | [facility] | [phone] | | | | | and Healing, | | | | | | [facility] | | | | | | Floor [facility] [place] | | | | | | [address] | | | | | | [phone] | | | +--------+ + + + [...]
--- OUTSIDE RECORDS SUMMARY | ~2020-02-08 | XMS | Encounter Summary ---
Demographics + + + | Address | [address] | | | [place] [address] | + + + | Home Phone | | + + + | Preferred Language | Unknown | + + + | Marital Status | | + + + | Orthodox Affiliation | Unknown | + + + | Race | Unknown | + + + | Ethnic Group | Unknown | + + + Author + + + | Author | [facility] | | | and [place] | + + + | Organization | [facility] | | [...] Team Providers + +------+ + | Care Ukrainian Folk Arts Instructor Name | Role | Phone | + +------+ + | Paolo Pringle MD | PCP | | + +------+ + Encounter Details +--------+ + + + + | Date | Type | Department | Care Team | Description | +--------+ + + + + | 01/22/ | Hospital | [facility] | Alonso, | Chronic pain of both | | 2016 | Encounter | MED CTR XRAY [address] | JANICE Nevarez [address] | knees | | | | [place] | [address] | | | | | [place] [address] | [place] [address] | | | | | [phone] | | | | | | | | +--------+ + + + [...] + + documented as of this encounter Medications at Time of Discharge [...] + + + +---------+ + + | alfuzosin | Take 10 mg by mouth | | 0 | 01/17/20 | | | (UROXATRAL) 10 mg 24 | Daily. | | | 10 | 7 | | hr tablet | | | | | | + + + +---------+ + + | aspirin (ASPIRIN | Take 81 mg by mouth | | 0 | 01/17/20 | | | LOW DOSE) 81 MG | Daily. | | | 10 | 7 | | tablet | | | | | | + + + +---------+ + + | ezetimibe (ZETIA) | Take 10 mg by mouth | | 0 | 01/17/20 | | | 10 mg tablet | Daily. | | | 10 | 7 | + + + +---------+ + + | meloxicam (MOBIC) | Take 15 mg by mouth | | 0 | | | | 15 mg tablet | Daily. | | | | 7 | + + + +---------+ + + documented as of this encounter Plan of Treatment Not on filedocumented as of this encounter Procedures + +--------+ + + + | Procedure Name | Priori | Date/Time | Associated Diagnosis | Comments | | | ty | | | | + +--------+ + + + | XR KNEE RIGHT 4 + VW | Routin | 01/23/2016 | Chronic pain of | Results for this | | | e | 1:45 PM | both knees | procedure are in the | | | | PDT | | results section. | + +--------+ + + + documented in this encounter Results XR Knee Right 4 + Vw (01/23/2016 1:45 PM PDT) + + | Specimen | + + | | + + + + + | Narrative | Performed At | + + + | XR KNEE RIGHT 4 + VW 01/23/2016 1:45 PM HISTORY: bilateral medial | [facility] | | knee pain. COMPARISON: None. FINDINGS: The right knee shows | [facility] | | no acute findings. Peaking of the tibial spines is observed. Bone | [facility] | | mineralization is normal. There is no joint effusion. Soft tissues | - IMAGING | | are unremarkable. Incidental evaluation of the left knee shows | | | peaking of the tibial spines. IMPRESSION - Early degenerative | | | degenerative changes of bilateral knees. Dictated and Signed by: | | | Johnson Benites MD Electronically signed: 01/23/2016 4:49 PM | | + + + + + | Procedure Note | + + | Vasile Montes Results In - 01/23/2016 4:52 PM PDT XR KNEE RIGHT 4 + VW 01/23/2016 1:45 PM | | | | HISTORY: bilateral medial knee pain. | | | | COMPARISON: None. | | | | FINDINGS: | | The right knee shows no acute findings. Peaking of the tibial spines is | | observed. Bone mineralization is normal. There is no joint effusion. Soft | | tissues are unremarkable. | | | | Incidental evaluation of the left knee shows peaking of the tibial spines. 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 | | | | Dictated and Signed by: Johnson Benites MD | | Electronically signed: 01/23/2016 4:49 PM | + + + + + + + | Performing | Address | City/State/Zipcode | Phone Number | | Organization | | | | + + + + + | MARIE JONES | [address] | [place] | [phone] | | [facility] | | [address] | | | - IMAGING | | | | + + + + + documented in this encounter Visit Diagnoses + + | Diagnosis | + + | Chronic pain of both knees | + + documented in this encounter"
--- OUTSIDE RECORDS SUMMARY | ~2020-02-08 | XMS | Encounter Summary ---
Demographics + + + | Address | [address] | | | [place] [address] | + + + | Home Phone | | + + + | Preferred Language | Unknown | + + + | Marital Status | Single | + + + | Yarsanism Affiliation | Unknown | + + + | Race | Unknown | + + + | Ethnic Group | Other Race | + + + Author + + + | Author | [facility] | + + + | Organization | [facility] | + + + | Address | Unknown | + + + | Phone | Unavailable | + + + Care Team Providers + +------+ + | Care Motorcoach Operator Name | Role | Phone | + +------+ + PCP | Unavailable | + +------+ + Encounter Details +--------+ + + + + | Date | Type | Department | Care Team | Description | +--------+ + + + + | 05/03/ | Outside | Neurophysiology | Abdifatah Dover | | | 2009 | Referral | EEG at [facility] [address] | | | | Order | [address] | [facility] | | | | | [facility] | [address] [facility] | | | | | [place], [address]th Floor | [place] | | | | | [place], [place] | [address] | | | | | [address] | [phone] | | | | | [phone] | | | +--------+ + + + [...] 1935 Medical | | | Record Number: [id number] Date of Test: 12/02/2009 ROUTINE EEG | | | done at [facility]: this is a routine EEG in [...]
--- OUTSIDE RECORDS SUMMARY | ~2020-02-08 | XMS | Encounter Summary ---
Demographics + + + | Address | [address] | | | [place] [address] | + + + | Home Phone | | + + + | Preferred Language | Unknown | + + + | Marital Status | | + + + | Catholic Affiliation | Unknown | + + + | Race | Unknown | + + + | Ethnic Group | Unknown | + + + Author + + + | Author | [facility] | | | and [place] | + + + | Organization | [facility] | | | and [...] Team Providers + +------+ + | Care Store Worker Name | Role | Phone | + +------+ + | Paolo Pringle MD | PCP | | + +------+ + Encounter Details +--------+ + + + + | Date | Type | Department | Care Team | Description | +--------+ + + + + | 07/16/ | Hospital | [facility] | Marnie Mahmood, | Hx of seizure | | 2018 - | Encounter | [facility] | [address] | disorder; Driving | | | | CARE FLOOR [address] | [place] [address] | safety issue; Pain; | | 07/21/ | | [address] | [phone] | Essential | | 2018 | | [place], [place] | | hypertension; | | | | [address] | | Weakness generalized | | | | [phone] | | | +--------+ + + + [...] + + + | Blood Pressure | 127/65 | 07/21/2018 11:05 AM | | | | | PST | | + + + + + | Pulse | 78 | 07/21/2018 11:05 AM | | | | | PST | | + + + + + | Temperature | 36.8 C (98.2 F) | 07/21/2018 11:05 AM | | | | | PST | | + + + + + | Respiratory Rate | 18 | 07/21/2018 11:05 AM | | | | | PST | | + + + + + | Oxygen Saturation | - | - | | + + + + + | Inhaled Oxygen | - | - | | | Concentration | | | | + + + + + | Weight | 75.8 kg (167 lb 1.8 | 07/21/2018 11:05 AM | | | | oz) | PST | | + + + + + | Height | 180.3 cm (5' 11") | 07/21/2018 11:05 AM | | | | | PST | | + + + + + | Body Mass Index | 23.31 | 07/21/2018 11:05 AM | | | | | PST | | + + + + + documented in this encounter Discharge Summaries Ruben Lewis MD - 07/20/2018 9:33 PM PSTFormatting of this note might be differe nt from the original. Discharge Summaries by Ruben Lewis MD at 07/20/182132 Author: Ruben Lewis MD Service: Hospitalist Author Type: Physician Filed: 07/21/181806 Date of Service: 07/20/182132 Status: Addendum Cube Cutter: Ruben Lewis MD (Physician) Related Notes: Original Note by Ruben Lewis MD (Physician) filed at 07/21/18 18 05 [facility]: Hospitalist Discharge Summary Date of Admission: 07/16/2018 Date of Discharge: 07/21/2018, 10 AM Discharge Provider: RUBEN LEWIS MD Treatment Team: Consulting Physician: Umesh Tomas MD Admitting Provider: Marnie Mahmood MD Discharge Diagnoses: Principal Problem: Weakness generalized Active Problems: Hx of seizure disorder on chronic keppra therapy Essential hypertension Resolved Problems: Urinary retention Acute metabolic encephalopathy Procedures: * No surgery found * Significant Diagnostic Studies: CBC, CMP, CTA Head and MRI Brain BRIEF HISTORY OF PRESENTATION AND HOSPITAL COURSE: Mandeep Diop is a 82 y.o. male with past medical history of Seizure Disorder, BPH, HTN, COPD , DELFINA on CPAP who was admitted as a transfer from [facility]. His initial blood work including CBC and CMP was stable and an extensive workup with CTA head and neck was neg ative for any stroke or sign of stenosis. This was followed by MRI brain which was also nega tive for acute infarct or hemorrhages. UA was also unremarkable except mild thrombocytopeni a. She was kept on Keppra 1500 mg BID and Neurology services consulted. Etiology was not c lear but most likely due to medications including anticholinergics. Dr. Tomas evaluated him an d an EEG was done which showed encephalopathy but no seizure or epileptiform abnormalities. He had significant urinary retention for which straight catheterization was done and draine d 1200 mlof urine. He was treated conservatively and closely monitored for mental status changes and hallucinations. He was provided supportive care, oxybutynin and nortriptyline w ere discontinued which were likely cause of his mental status changes. He responded to cons ervative management and eventually eventually returned to his baseline. Flomax was added fo r urinary retention and BPH and Keppra was kept at 1500 mg BID at home doses. He was very we ak and fatigued for which PT services followed and found him very deconditioned. They recomm ended SNF placement for rehabilitation and he agreed with the plans. He was accepted at [facility] in [place] and is now discharged in a stable condition with recommendations to follow-up with his primary care physician preferably in a week for routin e evaluation.. No Known Allergies DISCHARGE EXAM Vital Signs: BP 127/65 (BP Location: Left upper arm) | Pulse 78 | Temp 98.2 F (36.8 C) (Oral) | R de 18 | Ht 1.803 m (5' 11") | Wt 75.8 kg (167 lb 1.7 oz) | SpO2 97% | BMI 23.31 kg/m Physical Exam Constitutional: Patient is alert and oriented. Appears weak but well-developed and not in a cute distress. HEENT: Head: Normocephalic and Atraumatic. Nose: Nose normal. Mouth/Throat: Oropharynx is clear and moist. Eyes: No conjunctiva injection. EOM Intact. PERRLA. No scleral icterus. Neck: Neck supple. No JVD present. No tracheal deviation present. No thyromegaly Cardiovascular: Regular rate and rhythm, no murmur heard and no friction rub. Pulmonary/Chest: Symmetrical chest expansion, no stridor, no wheezes and few rales at base s. Abdominal: Soft, BS present, no distension, no ascites. No rebound tenderness and no guardi ng. Musculoskeletal: Moving all limbs, No joint tenderness. No pedal edema. Neurological: No focal neurologic deficits. + Difficulty in walking, No CN deficits. Skin: Skin is warm and dry. No rash noted. No erythema. No pallor. Psychiatric: No psychosis, + Dysphoric but reactive affect, Judgment normal. DATA Lab Results Component Value Date WBC 6.84 07/19/2018 HGB 13.5 07/19/2018 HCT 40.8 07/19/2018 MCV 80.7 07/19/2018 PLT 107 (L) 07/19/2018 PLAN Follow up with your primary care physician in one week for a routine evaluation. Low salt diet for better blood pressure control. Take current list of medications including the newer ones as prescribed. PT and OT services to see, evauluate and treat at the [facility] to help impr ove mobility and strengths. Disposition: Home Condition: Stable Code Status: Full Code Discharge Instructions Diet Low Sodium Activity as Advised by Physical Therapy Up with Assistance Follow up: Follow up with your primary physician in [facility] preferably in 1 week for routine evaluat ion. Medication List START taking these medications tamsulosin 0.4 MG capsule QTY: 30 capsule Refills: 1 Commonly known as: FLOMAX Take 1 capsule by mouth After dinner. CONTINUE taking these medications finasteride 5 MG tablet Refills: 0 Commonly known as: PROSCAR glucosamine-chondroitin 500-400 MG Caps Refills: 0 ipratropium-albuterol 20-100 MCG/ACT inhaler Refills: 0 Commonly known as: COMBIVENT RESPIMAT levetiracetam 750 MG tablet Refills: 0 Commonly known as: KEPPRA losartan 50 MG tablet Refills: 0 Commonly known as: COZAAR NIFEdipine 30 MG 24 hr tablet Refills: 0 Commonly known as: PROCARDIA XL senna-docusate 8.6-50 MG per tablet Refills: 0 Commonly known as: PERICOLACE You might also be taking other medications not listed above. If you have questions about an y of your other medications, talk to the person who prescribed them or your Primary Care Pro vider. STOP taking these medications oxybutynin 5 MG tablet Commonly known as: DITROPAN Where to Get Your Medications You can get these medications from any pharmacy Bring a paper prescription for each of these medications tamsulosin 0.4 MG capsule Discharge took more than 35 minutes, to include final examination, discussion of admission, and preparation of prescriptions, instructions for on-going care, follow-up and documentati on of discharge summary. RUBEN LEWIS MD 07/21/2018 documented in this encounter Medications at Time [...] + + documented as of this encounter Progress Notes Conversion Transaction, Provider Unknown - 07/21/2018 2:04 PM PSTFormatting of this note m ight be different from the original. Progress Notes by Primitivo Olsen RN at 07/21/181403 Author: Primitivo Olsen RN Service: (none) Author Type: Registered Nurse Filed: 07/21/18 2911 Date of Service: 07/21/181403 Status: Addendum Cube Cutter: Primitivo Olsen RN (Registered Nurse) Related Notes: Original Note by Primitivo Olsen RN (Registered Nurse) filed at 07/21/18 7852 Have attempted 3 times since 1145 to call [facility] to give report. Left my contact #. Dwaine hermosillo pino RN call me back. 1445: report given to Hilaria SNELL. Packet left here, called family to p/u, copy was faxed to [facility]. Primitivo Olsen RN onver angie Transaction, Provider Unknown - 07/21/2018 1:44 PM PST Case Management by Cheng Estrella RN at 07/21/18 1344 Author: Cheng Estrella RN Service: (none) Author Type: Registered Nurse Filed: 07/21/18 1346 Date of Service: 07/21/181343 Status: Signed Cube Cutter: Cheng Estrella RN (Registered Nurse) 07/21/18 1344 CM Ready for Discharge CM Ready for Discharge Yes Disposition: [facility] Transportation:Private vehicle All orders, signed AVS, and prescriptions have been faxed yes Patient and family in agreement with discharge plan yes Medicare important message (Given or N/A): Given Cheng Estrella onver angie Transaction, Provider Unknown - 07/21/2018 8:27 AM PST Case Management by Cheng Estrella RN at 07/21/18 0803 Author: Cheng Estrella RN Service: (none) Author Type: Registered Nurse Filed: 07/21/18 1037 Date of Service: 07/21/18 08 Status: Addendum Cube Cutter: Cheng Estrella RN (Registered Nurse) Related Notes: Original Note by Cheng Estrella RN (Registered Nurse) filed at 07/21/18 1021 Discharge Planning: Follow-up on referral to [facility] called Leah Admission s coordinator and left VM for her to call back. Leah called me back and stated that they did not receive the referral and that they would have to receive it in a fax format. Leah also said that they do not have a bed available at this time. Leah stated that they are going through their Medicare meeting today and mauro [place] let me know if availability will be tomorrow. I discussed this with Pt and he is okay with going over to [facility], referral sent and I called Jeanmarie traffic coordinator and left a VM for her to call me back. Jeanmarie called back and they have availability for Pt today. Family will transport at 1400. onver angie Transaction, Provider Unknown - 07/21/2018 5:16 AM PST Nurse Progress Note by Paddy Rico RN at 07/21/18515 Author: Paddy Rico RN Service: (none) Author Type: Registered Nurse Filed: 07/21/18517 Date of Service: 07/21/18515 Status: Addendum Cube Cutter: Paddy Rico RN (Registered Nurse) Related Notes: Original Note by Paddy Rico RN (Registered Nurse) filed at 07/21 Pt a/ox4, VSS. Pt ambulating to BRP to urinate and bladder scans have been <200mL. Bed alar m on and fall mats next to bed. No acute changes, chart review complete. Paddy Rico RN Kayden adams Transaction, Provider Unknown - 07/20/2018 6:36 PM PST Nurse Progress Note by Sophy Stark RN at 07/20/181835 Author: Sophy Stark RN Service: (none) Author Type: Registered Nurse Filed: 07/20/181837 Date of Service: 07/20/181835 Status: Signed Cube Cutter: Sophy Stark RN (Registered Nurse) Pt vitals stable, A&O x 3, bladder scan after urination was 0 mls. Pt up to chair 1 person assist with FWW. Neuro checks done Q 4 hours with no changes. End of shift review complete. Sophy Stark RN Ruben Arnold MD - 07/20/2018 8:09 AM PST Progress Notes by Ruben Lewis MD at 07/20/18808 Author: Ruben Lewis MD Service: Hospitalist Author Type: Physician Filed: 07/20/18 1331 Date of Service: 07/20/18808 Status: Signed Cube Cutter: Ruben Lewis MD (Physician) [facility]: Hospitalist Progress Note Mandeep Diop 82 y.o. [id number] [id number]/[id number] male No primary care provider on file. Hospital Day: LOS: 4 days SUBJECTIVE Patient Summary: Patient is an 82 year old male with past medical history of Seizure Disorder, BPH, HTN, [employer]ATE D, DELFINA on CPAP who was admitted as a transfer from [facility]. His initial blood work including CBC and CMP was stable and an extensive workup with CTA head and neck was ne gative for any stroke or sign of stenosis. This was followed by MRI brain which was also neg ative for acute infarct or hemorrhages. UA was also unremarkable except mild thrombocytopen ia. She was kept on Keppra 1500 mg BID and Neurology services consulted. Etiology was not clear but most likely due to medications including anticholinergics. Dr. Tomas evaluated him a nd an EEG was done which showed encephalopathy but no seizure or epileptiform abnormalities. He had significant urinary retention for which straight catheterization was done and drain ed 1200 ml of urine. He was treated conservatively and closely monitored for mental status changes and episodes of hallucinations. He was provided supportive care which helped and ekta ntually returned to his baseline. PT services followed and found him deconditioned and weak for which they recommended group home facility placement for rehabilitation. Events Overnight: Patient seen and examined. Overnight events noted. Patient reported feeling fair, had good night sleep but remains weak and fatigued. Staff did not report any episodes of hallucinati ons, delusions or mental status changes. Patient denied chest pains, shortness of breath, c ough and no headaches, nausea or vomiting. No abdominal pain, diarrhea or constipation. Appe tite is improving. Remained afebrile. Scheduled Medications enoxaparin 40 mg Subcutaneous Q24H finasteride 5 mg Oral Daily levetiracetam 1,500 mg Oral BID losartan 50 mg Oral BIDQ NIFEdipine 30 mg Oral BID pneumococcal 23-valent vaccine 0.5 mL Intramuscular Once Immunization senna-docusate 1 tablet Oral Daily Continuous Infusions PRN Medications acetaminophen OR acetaminophen, hydrALAZINE, ipratropium-albuterol, ondansetron OR ondansetron, polyethylene glycol Allergy: No Known Allergies OBJECTIVE Vital Signs: BP (!) 159/91 (BP Location: Right upper arm) | Pulse 68 | Temp 98.5 F (36.9 C) (Oral) | Resp 18 | Ht 1.803 m (5' 11") | Wt 75.8 kg (167 lb 3.2 oz) | SpO2 93% | BMI 23.32 kg /m I&O Detailed Table: I/O last 3 completed shifts: In: 350 [P.O.:350] Out: 300 [Urine:300] Weight change: -0.136 kg (-4.8 oz) Hemodynamics Last 24hrs: Examination: Constitutional: Patient is alert and oriented. Appears weak but well-developed and not in a cute distress. HEENT: Head: Normocephalic and Atraumatic. Nose: Nose normal. Mouth/Throat: Oropharynx is clear and moist. Eyes: No conjunctiva injection. EOM Intact. PERRLA. No scleral icterus. Neck: Neck supple. No JVD present. No tracheal deviation present. No thyromegaly Cardiovascular: Regular rate and rhythm, no murmur heard and no friction rub. Pulmonary/Chest: Symmetrical chest expansion, no stridor, no wheezes and few rales at base s. Abdominal: Soft, BS present, no distension, no ascites. No rebound tenderness and no guardi ng. Musculoskeletal: Moving all limbs, No joint tenderness. No pedal edema. Neurological: No focal neurologic deficits. + Difficulty in walking, No CN deficits. Skin: Skin is warm and dry. No rash noted. No erythema. No pallor. Psychiatric: No psychosis, + Dysphoric but reactive affect, Judgment normal. LABS: No results found for this or any previous visit (from the past 24 hour(s)). PROBLEM LIST Principal Problem: Acute metabolic encephalopathy Active Problems: Hx of seizure disorder on chronic keppra therapy Urinary retention Essential hypertension Weakness generalized ASSESSMENT & PLAN Acute Metabolic Encephalopathy: This was likely due to medications and or urinary retentio n. Workup with CTA head and MRI brain was negative for acute hemorrhages. EEG was also nega tive for seizures but showed findings suggestive of delirium and encephalopathy. Stable at present and recovering but not back to his baseline functional status yet. Will continue sup portive treatment and monitor for behavioral symptoms. History of Seizure Disorder: Currently stable with no seizure like activity since admissio n. Appreciate Dr. Tomas recommendations, will check Keppra level if condition remains unchang ed or worsens. Will continue oral Keppra 1500 mg twice a day and monitor closely. Urinary Retention: Secondary to BPH, S/P straight catheterization and once. Currently stabl e, will continue Finasteride and add Flomax 0.4 mg daily for symptomatic relief and monitor symptoms. Hypertension: BP remains stable at present, will continue Nifedipine and Losartan as schedu led and no changes recommended at this time. Generalized weakness / Debility: Multifactorial, secondary to encephalopathy and deconditi oning. PT services followed and recommended SNF placement to improve strengths and mobility . Case management is working on the finding placement and patient will likely be discharged to [facility] in [facility]. DVT prophylaxis with SCD's and Lovenox. Discharge plans possibly tomorrow if medically stable and accepted by group home facil ity for rehabilitation. RUBEN LEWIS MD 07/20/2018 onversion Tra nsaction, Provider Unknown - 07/20/2018 4:57 AM PSTFormatting of this note might be differe nt from the original. Nurse Progress Note by Paddy Rico RN at 07/20/18456 Author: Paddy Rico RN Service: (none) Author Type: Registered Nurse Filed: 07/20/18 0459 Date of Service: 07/20/18456 Status: Signed Cube Cutter: Paddy Rico RN (Registered Nurse) Pt a/ox3 and neuro checks done Q4 hours. Pt bed alarm on and fall mats next to bed. Pt adrianne ins free of falls. Bladder scans done and pt had <200 when scanned. Pt is a 1 person assist, FWW to BRP. No acute changes, chart review complete. Paddy Rico RN onver angie Transaction, Provider Unknown - 07/19/2018 7:15 PM PST Nurse Progress Note by Sophy Stark RN at 07/19/181914 Author: Sophy Stark RN Service: (none) Author Type: Registered Nurse Filed: 07/19/181916 Date of Service: 07/19/181914 Status: Signed Cube Cutter: Sophy Stark RN (Registered Nurse) Pt vitals stable, up in chair for most of shift, up to bathroom 1 person assist with FWW. N euro checks done q 4 hours with no changes. End of shift review complete. Sophy Stark RN onver angie Transaction, Provider Unknown - 07/19/2018 9:50 AM PST Case Management by ADAM Leon at 07/19/18 0950 Author: ADAM Leon Service: (none) Author Type: Stain Applicator Filed: 07/19/1851 Date of Service: 07/19/18949 Status: Signed Cube Cutter: ADAM Leon (Stain Applicator) CM spoke to pt about discharge. Pt would like to discharge to [facility]. CM sent referral to [facility] in [place]. CM to follow. ADAM Leon Ruben Arnold MD - 07/19/2018 8:04 AM PST Progress Notes by Ruben Lewis MD at 07/19/18803 Author: Ruben Lewis MD Service: Hospitalist Author Type: Physician Filed: 07/19/18 1422 Date of Service: 07/19/18803 Status: Signed Cube Cutter: Ruben Lewis MD (Physician) [facility]: Hospitalist Progress Note Mandeep Diop 82 y.o. [id number] [id number] male No primary care provider on file. Hospital Day: LOS: 3 days SUBJECTIVE Patient Summary: Patient is an 82 year old male with past medical history of Seizure Disorder, BPH, HTN, [employer]ATE D, DELFINA on CPAP who was admitted as a transfer from [facility]. His initial blood work including CBC and CMP was stable and an extensive workup with CTA head and neck was ne gative for any stroke or sign of stenosis. This was followed by MRI brain which was also neg ative for acute infarct or hemorrhages. UA was also unremarkable except mild thrombocytopen ia. She was kept on Keppra 1500 mg BID and Neurology services consulted. Etiology was not clear but most likely due to medications including anticholinergics. Dr. Tomas evaluated him a nd an EEG was done which showed encephalopathy but no seizure or epileptiform abnormalities. He had significant urinary retention for which straight catheterization was done and drain ed 1200 ml of urine. He was treated conservatively and closely monitored for mental status changes. He had episodes of hallucinations and supportive treatment was provided. Events Overnight: Patient seen and examined. Overnight events noted. Patient reported feeling much better joao n previous days. He was more awake and alert but remains weak and fatigued. He is working [facility] PT services and they recommended SNF placement. He denied any chest pains, shortness of b reath, cough and no headaches, nausea or vomiting. Feeling less energetic and has difficulty in walking. No abdominal pain, diarrhea or constipation. Appetite is low but slowly improvi ng. Remained afebrile. Scheduled Medications enoxaparin 40 mg Subcutaneous Q24H finasteride 5 mg Oral Daily levetiracetam 1,500 mg Oral BID losartan 50 mg Oral BIDQ NIFEdipine 30 mg Oral BID pneumococcal 23-valent vaccine 0.5 mL Intramuscular Once Immunization senna-docusate 1 tablet Oral Daily Continuous Infusions PRN Medications acetaminophen OR acetaminophen, hydrALAZINE, ipratropium-albuterol, ondansetron OR ondansetron, polyethylene glycol Allergy: No Known Allergies OBJECTIVE Vital Signs: BP 152/85 (BP Location: Right upper arm) | Pulse 75 | Temp 98.4 F (36.9 C) (Oral) | Resp 18 | Ht 1.803 m (5' 11") | Wt 76 kg (167 lb 8 oz) | SpO2 97% | BMI 23.36 kg/m I&O Detailed Table: I/O last 3 completed shifts: In: 1095.2 [P.O.:386; I.V.:709.2] Out: 2153 [Urine:2153] Weight change: -1.122 kg (-2 lb 7.6 oz) Hemodynamics Last 24hrs: Examination: Constitutional: Patient is alert and oriented. Appears weak but well-developed and not in a cute distress. HEENT: Head: Normocephalic and Atraumatic. Nose: Nose normal. Mouth/Throat: Oropharynx is clear and moist. Eyes: No conjunctiva injection. EOM Intact. PERRLA. No scleral icterus. Neck: Neck supple. No JVD present. No tracheal deviation present. No thyromegaly Cardiovascular: Regular rate and rhythm, no murmur heard and no friction rub. Pulmonary/Chest: Symmetrical chest expansion, no stridor, no wheezes and few rales on base s. Abdominal: Soft, BS present, no distension, no ascites. No rebound tenderness and no guardi ng. Musculoskeletal: Moving all limbs, No joint tenderness. No pedal edema. Neurological: No focal neurologic deficits. + Difficulty in walking, No CN deficits. Skin: Skin is warm and dry. No rash noted. No erythema. No pallor. Psychiatric: No psychosis, + Dysphoric affect, Judgment normal. LABS: Recent Results (from the past 24 hour(s)) CBC W/Auto Diff (Reflex to Manual) Collection Time: 07/19/18 5:52 AM Result Value Ref Range WBC 6.84 3.80 - 11.00 K/uL RBC 5.06 4.20 - 5.70 M/uL HGB 13.5 13.2 - 17.0 g/dL HCT 40.8 39.0 - 50.0 % MCV 80.7 80.0 - 100.0 fl MCH 26.6 (L) 27.0 - 34.0 pg MCHC 33.0 32.0 - 35.5 g/dL RDW SD 41.6 37 - 53 fl PLT 107 (L) 150 - 400 K/uL MPV 10.1 fl DIFF TYPE AUTOMATED NEUTROPHILS 69.11 % LYMPHOCYTES 14.51 % MONOCYTES 10.35 % EOSINOPHILS 5.04 % BASOPHILS 0.99 % NEUTROPHILS ABS 4.73 1.90 - 7.40 K/uL LYMPHOCYTES ABS 0.99 (L) 1.00 - 3.90 K/uL MONOCYTES ABS 0.71 0.00 - 0.80 K/uL EOSINOPHILS ABS 0.35 0.00 - 0.50 K/uL BASOPHILS ABS 0.07 0.00 - 0.10 K/uL MORPHOLOGY 1+ Platelet Estimate INCREASED Basic metabolic panel Collection Time: 07/19/18 5:52 AM Result Value Ref Range SODIUM 141 135 - 145 mmol/L POTASSIUM 3.7 3.5 - 4.9 mmol/L CHLORIDE 106 99 - 109 mmol/L CO2 24 23 - 32 mmol/L ANION GAP AGAP 15 5 - 20 mmol/L GLUCOSE 91 65 - 99 mg/dL BUN 12 8 - 25 mg/dL CREATININE 0.8 0.70 - 1.30 mg/dL BUN/CREAT 15 CALCIUM 8.4 (L) 8.5 - 10.5 mg/dL EGFR >60 >60 mL/min/1.73m2 PROBLEM LIST Principal Problem: Acute metabolic encephalopathy Active Problems: Hx of seizure disorder on chronic keppra therapy Urinary retention Essential hypertension Weakness generalized ASSESSMENT & PLAN Acute Metabolic Encephalopathy: Etiology unclear but likely due to medications and or urin rosa retention. Workup with CTA head and neck and MRI brain was negative for acute stroke or hemorrhages. EEG was also negative for seizures but showed findings suggestive of delirium and encephalopathy. Currently stable and making progress, will continue supportive treatmen t and monitor for behavioral symptoms. History of Seizure Disorder: Currently stable with no seizure like activity since admissio n. Appreciate Dr. Tomas recommendations, will check Keppra level if condition remains unchang ed or worsens. Will continue oral Keppra 1500 mg twice a day and monitor closely. Urinary Retention: Secondary to BPH, status post straight catheterization and removed 1200 cc. Will monitor and repeat catheterization as indicated. Hypertension: BP seems to be stable at present, will continue Nifedipine and Losartan at ho me dose and no changes recommended at this time. Generalized weakness / Debility: Multifactorial, secondary to encephalopathy and deconditi oning. PT services involved and recommending group home facility placement to improve strengths and mobility. DVT prophylaxis with SCD's and Lovenox. Discharge plans when stable and improved in 1-2 days if medically stable. RUBEN LEWIS MD 07/19/2018 onversion Tra nsaction, Provider Unknown - 07/19/2018 5:23 AM PSTFormatting of this note might be differe nt from the original. Nurse Progress Note by Paddy Rico RN at 07/19/18522 Author: Paddy Rico RN Service: (none) Author Type: Registered Nurse Filed: 07/19/18524 Date of Service: 07/19/18522 Status: Signed Cube Cutter: Paddy Rico RN (Registered Nurse) Pt a/ox3, VSS. Pt ambulating to BRP w/ 1 person assist, FWW. Pt urinating and bladder scan completed Q4 hours. Bed alarm on and fallmats in place next to bed, no falls this shift. No acute changes, chart review complete. Paddy Rico RN onver angie Transaction, Provider Unknown - 07/18/2018 6:29 PM PST Progress Notes by Daphne Saldaña RN at 07/18/181828 Author: Daphne Saldaña RN Service: (none) Author Type: Registered Nurse Filed: 07/18/181838 Date of Service: 07/18/181828 Status: Signed Cube Cutter: Daphne Saldaña RN (Registered Nurse) Pt oriented to person, place and time, knows he is in hospital because he is "sick" however does not recall how he got to hospital. Awake for majority of day. Physical therapy worked with patient and is recommending pt discharge to SNF. Up to chair m ajority of day, tab/bed alarm in place as pt still impulsive when getting out of bed. Family called for update on pt care plan and discharge disposition, RN updated family howev er they wanted to talk to MD. MD notified about situation. Vital signs stable, replaced potassium per MD order. Now on regular diet, with thin liquids . No issues swallowing noted today. End of shift review complete. Angel Keyes DO - 07/18/2018 3:43 PM PSTFormatting of this note might be different from the norman gigalileo. Progress Notes by Angel Cornejo DO at 07/18/18 6813 Author: Angel Cornejo DO Service: Hospitalist Author Type: Physician Filed: 07/18/18 1376 Date of Service: 07/18/181542 Status: Signed Cube Cutter: Angel Cornejo DO (Physician) PROGRESS NOTE 07/18/2018 for Mandeep Diop on the hospitalist service. ASSESSMENT & PLAN Acute metabolic encephalopathy Unclear etiology. Now improving. Possible rxn to oxybutynin, now held. Possibly due to urin e retention. Hx not particularly convincing for sz and he is already on elevated dose Keppra . No strong indication to increase dose at this time, I appreciate neuro consult. Continue s upportive care. Encourage engagement and activity during the day. Foster an environment of r est at night. Avoid other mind-altering meds de BZD's. Get PHYSICAL THERAPY/OT evals. I d/w daughter today via phone regarding DC planning. Patient's spouse is in no condition t o care for the patient at home so DC planning needs to be careful and conservative. Hx sz Continue Keppra. Urinary retention He has been retaining ~200 mL post-void but otherwise doing well, continue to monitor. HTN Continue losartan, nifedipine. Problem list: Principal Problem: Recurrent episodes of unresponsiveness Active Problems: Hx of seizure disorder on chronic keppra therapy Urinary retention Overview: 1200 ml from bladder emptied with straight cath Essential hypertension Length of stay: 2 days DVT prophylaxis: enox Code status: full code Disposition: inpatient SUBJECTIVE Patient seen/examined lying in bed, alert and conversant, disappointed at not being DC'd to day. OBJECTIVE Temp: [97.6 F (36.4 C)-99 F (37.2 C)] 98.3 F (36.8 C) (07/18 1511) BP: (135-162)/(68-85) 155/82 (07/18 1511) Heart Rate: [68-81] 69 (07/18 1511) Resp: [16-18] 18 (07/18 1511) SpO2: [93 %-98 %] 96 % (07/18 1511) Weight: [77.1 kg (169 lb 15.6 oz)] 77.1 kg (169 lb 15.6 oz) (07/18 254) Physical exam: NAD A, O x name, date, location, but not really to circumstances HENT - MMM, conjunctivae normal Heart - RRR no murmur, no JVD, normal radial / DP pulses B/L Lungs - CTAB/L no WRR, good effort Abd - SNTND +BSx4 Ext - Good ROM no tenderness or edema Skin - dry no erythema CBC: Lab Results Component Value Date WBC 11.59 (H) 07/18/2018 RBC 5.14 07/18/2018 HGB 13.5 07/18/2018 HCT 41.5 07/18/2018 MCV 80.8 07/18/2018 MCH 26.2 (L) 07/18/2018 MCHC 32.4 07/18/2018 RDW 42.9 07/18/2018 PLT 108 (L) 07/18/2018 MPV 10.0 07/18/2018 DIFFTYPE AUTOMATED 07/18/2018 BMP: Lab Results Component Value Date NA 142 07/18/2018 K 3.4 (L) 07/18/2018 CL 110 (H) 07/18/2018 CO2 22 (L) 07/18/2018 ANIONGAP 13 07/18/2018 GLUF 77 07/18/2018 BUN 13 07/18/2018 CREATININE 0.8 07/18/2018 BCR 16 07/18/2018 CA 8.2 (L) 07/18/2018 EGFR >60 07/18/2018 MEDICATIONS enoxaparin 40 mg Subcutaneous Q24H finasteride 5 mg Oral Daily levetiracetam 1,500 mg Oral BID losartan 50 mg Oral BIDQ NIFEdipine 30 mg Oral BID pneumococcal 23-valent vaccine 0.5 mL Intramuscular Once Immunization senna-docusate 1 tablet Oral Daily PRN: acetaminophen OR acetaminophen, hydrALAZINE, ipratropium-albuterol, ondansetron OR ondansetron, polyethylene glycol I spent over 35 minutes in reviewing patient s data, examination of patient and discussin g care of patient with patient and family. At least, 50% of time was face to face counseling or coordinating of care. Signature: Angel Cornejo DO 07/18/2018 3:43 PM Kary Garcia MS CC C-SPACE OPERATIONS OFFICER - 07/18/2018 9:17 AM PST Therapy Progress Note by Kary Anderson MS CCC-SPACE OPERATIONS OFFICER at 07/18/18916 Author: Kary Anderson MS CCC-SPACE OPERATIONS OFFICER Service: (none) Author Type: Speech and Language Pat hologist Filed: 07/18/18916 Date of Service: 07/18/18916 Status: Signed Cube Cutter: Kary Anderson MS CCC-SPACE OPERATIONS OFFICER (Speech and Language Pathologist) BEDSIDE SWALLOW SPACE OPERATIONS OFFICER Last Visit SPACE OPERATIONS OFFICER Received On: 07/18/18 Requires SPACE OPERATIONS OFFICER Follow Up: No Recommendations Liquids Consistency Recommendations: Thin Diet Consistency Recommendation: Regular Risk for Aspiration: Mild Compensatory Swallowing Strategies: Upright as possible for all oral intake, Slow rate pres entation, Small bites/sips Recommended Form of Meds: Meds with recommended liquid Summary: Pt seen today for follow up therapy. Pt's overall alertness significantly imporved . Pt was presented with PO trials of thin liquid, DMA, mechanical soft, and regular textures . Pt exhibited no s/sx aspiration, swallow no longer audible, and no further concerns for as piration. Pt is also not impulsive, as he was yesterday. Recommend advancing to a regular di et and thin liquids, medications whole in puree. ST to s/o at this time. Staff Notified: , RN Plan of Care Treatment Plan: No futher therapy recommended, Discharge from ST at this time Treatment Frequency: Eval/consult only Care Duration (Days): 2 Days Follow up treatments: Assessment for upgrade AVS Documentation: Yes Diet: Regular: no restrictions Liquids: Thin liquids: regular consistency SPACE OPERATIONS OFFICER Ready for Discharge: Yes Swallowing Treatment: Yes Patient Assessment Temperature Spikes Noted: No Respiratory Status: Room air History of Intubation: No Behavior/Cognition: Cooperative, Alert Dentition: Adequate Vision: Functional for self-feeding Patient Positioning: Upright in bed Baseline Vocal Quality: Normal Consistencies Consistencies Assessed: Yes Thin Presentation: Cup, Self Fed Oral Phase Thin: Within functional limits Pharyngeal Phase: No overt signs or symptoms of aspiration Dysphagia Mechanically Altered Presentation: Spoon Oral Phase: Within functional limits Pharyngeal Phase: No overt signs or symptoms of aspiration Mechanical Soft Mechanical Soft - Presentation: Self fed Mechanical Soft - Oral: Within Functional Limits Mechanical Soft - Pharyngeal: No overt signs or symptoms of aspiration Regular Presentation: Self Fed Oral Phase: Within functional limits Pharyngeal Phase: No overt signs or symptoms of aspiration Goals are progressing unless otherwise indicated. Dysphagia Goals Unhairer Goals: Safe/efficient oral intake Pt will have safe/efficient oral intake : Thin liquids, Regular diet, Goal met Short Term Goals: Follow swallow precautions Pt will follow swallow precautions : With min supervision, Goal met Education Completed Education Topics: Dysphagia: Explain results of session, speech-language pathology role, plan of care, most s afe diet and swallow precautions Completed with: [x] Patient [] Spouse [] Significant other [] Family [] Caregiver [] Other Completed by: [x] Verbal education [] Demonstration [] Handout [] Other: Response to Education: [x] Stated Understanding [] Reinforcement necessary [] Return ed demonstration [] Demonstrated understanding [] No evidence of learning [] Refused Kary Anderson MS CCC-SPACE OPERATIONS OFFICER 07/18/18 9:17 AM onversion Pavel pascual, Provider Unknown - 07/18/2018 5:40 AM PSTFormatting of this note might be diffe rent from the original. Nurse Progress Note by Monique Babcock RN at 07/18/18539 Author: Monique Babcock RN Service: (none) Author Type: Registered Nurse Filed: 07/18/18539 Date of Service: 07/18/18539 Status: Signed Cube Cutter: Monique Babcock RN (Registered Nurse) VSS. Denies pain or discomfort. Pt appears to be resting comfortably t/o this shift. Still confused at time. No straight cath needed this shift. No acute changes from previous shif t. Call light within reach, bed in low locked position. End of shift review completed by paevl inman RN. Monique Babcock RN onver angei Transaction, Provider Unknown - 07/17/2018 2:23 PM PST Progress Notes by Daphne Saldaña RN at 07/17/181422 Author: Daphne Saldaña RN Service: (none) Author Type: Registered Nurse Filed: 07/17/18 190 Date of Service: 12/13/18 1423 Status: Signed Cube Cutter: Daphne Saldaña, RN (Registered Nurse) Pt lethargic however answers to voice. He is oriented to person place and time however unsu re why he is currently at the hospital. Family at bedside and was updated on patient status and care plan. Replaced potassium IV as pt unable to take pills whole per speech. Pt to take meds crushed in puree. Speech will reevaluate tomorrow. 1415: Patient found on floor by soybean grower. Bed alarm was going off when soybean grower found patient. Neuro assessment completed at beside no changes from morning assessment. Md notified via marissa l, no orders at this time at pt denies any injury to head. Fall mat in place, bed alarm in p lace. End of shift report complete. Angel Keyes DO - 07/17/2018 1:24 PM PSTFormatting of this note might be different from the norman ginal. Progress Notes by Angel Cornejo DO at 07/17/18 1324 Author: Angel Cornejo DO Service: Hospitalist Author Type: Physician Filed: 07/17/18 6558 Date of Service: 07/17/18 1324 Status: Signed Cube Cutter: Angel Cornejo DO (Physician) PROGRESS NOTE 07/17/2018 for Mandeep Diop on the hospitalist service. ASSESSMENT & PLAN Acute metabolic encephalopathy Unclear etiology. Now improving. Possible rxn to oxybutynin, now held. Possibly due to urin e retention. Hx not particularly convincing for sz and he is already on elevated dose Keppra . I will check a level, not sure of turnaround time. No strong indication to increase dose a t this time, I appreciate neuro consult. Continue supportive care. Encourage engagement and activity during the day. Foster an environment of rest at night. Avoid other mind-altering m eds de BZD's. Hx sz Continue Keppra. Urinary retention Monitor UO and bladder scans today, continue IV fluid. HTN Continue losartan, nifedipine. Problem list: Principal Problem: Recurrent episodes of unresponsiveness Active Problems: Hx of seizure disorder on chronic keppra therapy Urinary retention Overview: 1200 ml from bladder emptied with straight cath Essential hypertension Length of stay: 1 days DVT prophylaxis: enox Code status: full code Disposition: inpatient SUBJECTIVE Patient seen/examined lying in bed, alert and conversant, still a little confused (goes off on irrelevant tangents when I repeatedly ask him why he was brought to hospital). OBJECTIVE Temp: [96.8 F (36 C)-98.3 F (36.8 C)] 97.9 F (36.6 C) (07/17 1111) BP: (123-192)/(71-97) 150/79 (07/17 1111) Heart Rate: [58-88] 67 (07/17 1111) Resp: [16-20] 20 (07/17 1111) SpO2: [96 %-99 %] 97 % (07/17 1111) Height: [180.3 cm (5' 11")] 180.3 cm (5' 11") (07/16 1752) Weight: [76.2 kg (167 lb 15.9 oz)-76.7 kg (169 lb 1.6 oz)] 76.2 kg (167 lb 15.9 oz) (07/17 330) BMI (Calculated): [23.6] 23.6 (07/16 1752) Physical exam: NAD A, O x name, date, location, but not really to circumstances HENT - MMM, conjunctivae normal Heart - RRR no murmur, no JVD, normal radial / DP pulses B/L Lungs - CTAB/L no WRR, good effort Abd - SNTND +BSx4 Ext - Good ROM no tenderness or edema Skin - dry no erythema CBC: Lab Results Component Value Date WBC 6.73 07/17/2018 RBC 5.30 07/17/2018 HGB 14.1 07/17/2018 HCT 42.8 07/17/2018 MCV 80.7 07/17/2018 MCH 26.6 (L) 07/17/2018 MCHC 33.0 07/17/2018 RDW 42.9 07/17/2018 PLT 116 (L) 07/17/2018 MPV 10.1 07/17/2018 DIFFTYPE AUTOMATED 07/17/2018 BMP: Lab Results Component Value Date NA 141 07/17/2018 K 3.3 (L) 07/17/2018 CL 107 07/17/2018 CO2 23 07/17/2018 ANIONGAP 14 07/17/2018 GLUF 95 07/17/2018 BUN 11 07/17/2018 CREATININE 0.8 07/17/2018 BCR 14 07/17/2018 CA 8.6 07/17/2018 EGFR >60 07/17/2018 MEDICATIONS enoxaparin 40 mg Subcutaneous Q24H finasteride 5 mg Oral Daily levetiracetam 1,500 mg Oral BID losartan 50 mg Oral BIDQ NIFEdipine 30 mg Oral BID pneumococcal 23-valent vaccine 0.5 mL Intramuscular Once Immunization senna-docusate 1 tablet Oral Daily sodium chloride (IV) 75 mL/hr at 07/17/18 0805 PRN: acetaminophen OR acetaminophen, hydrALAZINE, ipratropium-albuterol, ondansetron OR ondansetron, polyethylene glycol I spent over 35 minutes in reviewing patient s data, examination of patient and discussin g care of patient with patient and family. At least, 50% of time was face to face counseling or coordinating of care. Signature: Angel Cornejo DO 07/17/2018 1:24 PM onversion Transaction , Provider Unknown - 07/17/2018 11:04 AM PST Case Management by Cheng Estrella RN at 07/17/18 0860 Author: Cheng Estrella RN Service: (none) Author Type: Registered Nurse Filed: 07/17/18 1112 Date of Service: 07/17/18 1104 Status: Signed Cube Cutter: Cheng Estrella RN (Registered Nurse) 07/17/18 7206 Discharge Planning Evaluation Admitting Diagnosis Recurrent episode of unresponsiveness Readmission No Living Arrangements Spouse/significant other (Rebeka Jadon (spouse) [phone]) Support Systems Spouse/significant other;Children (Ammy Staley (daughter/POA)) Type of Residence Private residence House type House-1 story (Manufactured home) Bathrooms on 1st Floor 1-Full Independent with ADL's Yes Independent with Mobility Yes Home Care Services No Caregiver after Discharge No Mental Status Oriented Prior functional status Independent Power of Nursing Program Director Yes Power of Nursing Program Director Name Ammy Caalex Anticipated Discharge Plan Post Acute Care Needs None at this time Plan communicated to patient/family Yes Resources Financial concerns No Transportation issues No Patient/Family concerns No Prescription Plan Yes Name of Pharmacy [facility] Previous home health equipment No Vascular access device No Ostomy/Drains/Appliances No Anticipated Disposition Facility Type Home Met with Mandeep and discussed discharge planning, Pt is a 82 y.o., male admitted with recurre nt episode of unresponsiveness. A/Ox4 with periods of lethargy, lives with Rebeka (spouse) in a one story manufactured home. Pt independent with ADLs and mobility, denies need for ass istive devices, uses a CPAP at night supplied through [employer] agency. Pt denies use of Home O2 , dialysis, or AC. Pt states he still drives and goes golfing frequently. Pt will return preeti e once medically stable and transport via private vehicle and daughter Ammy. Has a POA thro ugh his daughter Ammy. CM will follow for any needs that arise. Patient's PCP is:Paolo Pringle MD (Family Medicine) Patient's insurance:Medicare, [employer] ([facility] [place]) Coverage concerns: No Medication coverage/concerns:Yes/No Rx Bedside Delivery: TBD Community resources utilized / needed: None/no Assistance in transportation: Ammy (daughter) can transport Identification of any specific education / training: None/no Barriers to Discharge / Alternative housing needed: None/no Anticipated DCP: Home with spouse Chneg Estrella onver angie Mcneil Provider Unknown - 07/17/2018 6:02 AM PST Pharmacy Note by Fawn Hogan RPH at 07/17/18601 Author: Fawn Hogan RPH Service: Pharmacy Author Type: Pharmacist Filed: 07/17/18601 Date of Service: 07/17/18601 Status: Signed Cube Cutter: Fawn Hogan RPH (Pharmacist) Clinical Pharmacy Note: Renal Monitoring Mandeep Diop 82 y.o. male Ht Readings from Last 1 Encounters: 07/16/18 1.803 m (5' 11") Wt Readings from Last 1 Encounters: 07/17/18 76.2 kg (167 lb 15.9 oz) No results found for: CREATININE Creatinine clearance cannot be calculated (No order found.) Pharmacy dosing for renal function per Dr. Gawlik. Currently, there are no medications needing to be adjusted. Pharmacy will continue to monit or for changes in medication orders and in renal function and adjust accordingly. Fawn Hogan R.Ph 07/17/2018 6:01 AM onver angie Transaction, Provider Unknown - 07/17/2018 4:36 AM PST Nurse Progress Note by Monique Babcock RN at 07/17/18435 Author: Monique Babcock RN Service: (none) Author Type: Registered Nurse Filed: 07/17/18435 Date of Service: 07/17/18435 Status: Signed Cube Cutter: Monique Babcock RN (Registered Nurse) Pt HTN start of shift PRN meds given per MAR w/relief noted. VSS at this time. Denies pain or discomfort. Pt voided in urinal x2 but with minimal out 100mls both times. Pt was strai ght cathed x1 this shift. Pt continues to be confused at times, and restless, but can be re oriented. Bedside swallow done, tolerated liquids and applesauce well, no s/sx of aspiratin g noted. Pt refused to the cracker. Meds were given w/water and pt started chewing them, t hey were then floated in applesauce but pt continued to chew them. Speech eval placed. No a cute changes from previous shift. Call light within reach, bed in low locked position. End of shift review completed by this RN. Monique Babcock RN onemilee adams Transaction, Provider Unknown - 07/16/2018 6:59 PM PST Nurse Progress Note by Ashley Raines RN at 07/16/181858 Author: Ashley Raines RN Service: (none) Author Type: Registered Nurse Filed: 07/16/181900 Date of Service: 07/16/181858 Status: Signed Cube Cutter: Ashley Raines RN (Registered Nurse) Pt admitted from [facility]. Upon assessment bladder distention noted, MD notified and s traight cath removed 1200 ml. Pt A&O to self and date only. Pt very impulsive and confused, trying to pull on lines and get out of bed. RUE noted to be weaker than LUE. Pt continues to have slurred speech at this time and is experiencing visual hallucinations, talking to peop le that are not in the room. Bed alarm on. Care and concerns passed to oncoming RN. Ashley Raines RN onver angie Transaction, Provider Unknown - 07/16/2018 6:15 PM PST Nurse Progress Note by Ashley Raines RN at 07/16/181814 Author: Ashley Raines RN Service: (none) Author Type: Registered Nurse Filed: 07/16/181815 Date of Service: 07/16/181814 Status: Signed Cube Cutter: Ashley Raines RN (Registered Nurse) Pt arrived with distended bladder. Bladder scan revealed > 999 ml and pt unable to pee. Dr. Mahmood notified about findings and gave verbal order to straight cath pt. Ashley Raines RN docume nted in this encounter H&P Notes Marnie Mahmood MD - 07/16/2018 6:23 PM PSTFormatting of this note might be different f rom the original. H&P by Marnie Mahmood MD at 07/16/181822 Author: Marnie Mahomod MD Service: Hospitalist Author Type: Physician Filed: 07/16/182040 Date of Service: 07/16/181822 Status: Signed Cube Cutter: Marnie Mahmood MD (Physician) [facility] Service: Hospitalist Admission History & Physical Date of Admission: 07/16/2018 Reason for Admission: Patient was transferred from [facility] ER for EEG and n eurologic consult History Obtained From: ER provider and very limited from patient; paper chart from [facility]'s/send with the patient CHIEF COMPLAINT: Recurrent problems with dysarthria and decreased level of alertness/respo nsiveness- similar to remote presentation of prior diagnosis of seizures HISTORY OF PRESENT ILLNESS The patient is a 82 y.o. male with significant past medical history of seizure disorder ( m aintained on Keppra 1500 mg po bid, since diagnosis in 2002/ followed by neurologist in [place] ) , benign prostatic hypertrophy, hypertension, COPD, and DELFINA with CPAP dependence. Patient presented to emergency room at [facility] in [facility], with al tered mental status with which patient was found this morning upon awakening. He was last se en in his prior usual state of health last evening. His family found him this morning unable to speak clearly and he had difficulty to put together puzzles which she usually does in th e mornings. His decreased level of alertness also prompted consideration by family members whether or not he had my be experiencing recurrent seizures and/or stroke. His deficits were reminiscent of remote presentation when patient was eventually diagnosed with seizure disor roxane and since then was maintained on Keppra medications. He was evaluated in ER by Dr. Rivera who proceeded with extensive workup including CT of the b rain, CTA of the brain and neck, an MRI of the brain, all demonstrating no acute changes, an d no etiology responsible for patient's presentation. Patient was described by family as having similar presentation to his remote presentation o f seizure disorder. ER provider discussed patient's presentation, imaging studies and furthe r management with neurologist family practitioner at [facility]- Dr. Matheus Jiménez, as well as Dr. Mora ( [facility] neurologist ). Based on ER physician's interpretation of clin ical situation, patient was treated with IV fosphenytoin load for total of 1500 mg 1. He a lso required 8 mg of Versed for sedation to undergo MRI of the brain. He was given additiona lly 2 mg of Ativan for transient agitation following MRI which was interpreted potentially a s recurrent seizure event/postictal state. There was no tonic/clonic activity reported. The decision was made eventually to transfer patient to [facility] for further evaluation includ ing EEG/ an official neurological consult by Dr. Tomas at [facility]. Hospitalist service facilitat e this transfer, and assumed attending role for this patient with neurology consultation pro vided by Dr. Tomas. Studies completed at [facility] in [place] on 07/16/2018 prior to transfer: - Negative CT/CTA of the head and neck without and with contrast. - Negative 1 view chest x-ray - Negative MRI of the brain - 12 EKG at 8:37 AM: Normal sinus rhythm with a rate of 70 bpm, left axis deviation, possib le inferior scar with QS waves in leads II, III, and F aVF, no acute ST or T-wave changes. After arrival to [facility] eighth floor medical unit: Patient was found to be somnolent with waxing level of alertness but overall agitated. No e vidence of tonic-clonic activity . He was assessed by staff writer to have bladder distention wi th large volume of urine with hand-held ultrasound indicating more in [address] raight catheter was performed and 1200 mL's of urine were drained. Patient has previous hist ory of benign prostatic hypertrophy. When asked he mentioned possibly having problems with his bladder/prostate/catheter before- this was unclear due to patient's dysarthria. Intermit tent straight catheter/straight catheter was ordered. Review of patient's medication list used prior to hospitalization reveals that he is on chr onic oxybutynin likely for his bladder urinary retention issues/incomplete voiding problems. This medication can cause anticholinergic side effects inpatient a bone age of 66. Somnolen ce, agitation, etc. can be a hallmark of anticholinergic toxicity. For this reason his medic ation will be discontinued for now. Stat EEG was initiated with Dr. Tomas awaiting the results for interpretation. Patient was signed out to nighttime hospitalist. REVIEW OF SYSTEMS Review of Systems Unable to perform ROS: Mental status change Past Medical History Diagnosis Date BPH (benign prostatic hyperplasia) COPD (chronic obstructive pulmonary disease) (HCC) History of completed stroke Per old records HTN (hypertension) on anti-HTN meds DELFINA on CPAP Seizure disorder (HCC) 2002 On Keppra Past Surgical History Procedure Laterality Date BASAL CELL CARCINOMA EXCISION Right forehead CATARACT EXTRACTION EXCISIONAL HEMORRHOIDECTOMY TRANSURETHRAL RESECTION OF PROSTATE No Known Allergies Prior to Admission medications Not on File No family history on file. Social History Social History Marital status: N/A Spouse name: N/A Number of children: N/A Years of education: N/A Occupational History Not on file. Social History Main Topics Smoking status: Not on file Smokeless tobacco: Not on file Alcohol use Not on file Drug use: Unknown Sexual activity: Not on file Other Topics Concern Not on file Social History Narrative No narrative on file PHYSICAL EXAM Vital Signs: BP (!) 171/95 (BP Location: Right upper arm) | Pulse 75 | Temp 98.1 F (36.7 C) (Oral) | Resp 18 | Ht 1.803 m (5' 11") | Wt 76.7 kg (169 lb 1.6 oz) | SpO2 96% | BMI 23.58 kg /m Physical Exam Constitutional: No distress. Fluctuating level of alertness with somnolence and subsequently transient unresponsiveness; responds to simple questions when more alert/ needs repetitive verbal cues to answer questi ons/ dysarthric HENT: Head: Normocephalic. Mouth/Throat: No oropharyngeal exudate. Dry mucous membranes. Eyes: Pupils are equal, round, and reactive to light. No scleral icterus. Pulmonary/Chest: Effort normal. No respiratory distress. He has no wheezes. Abdomina/Gl: Soft. Bowel sounds are normal. He exhibits no distension. There is no tenderne ss. There is no guarding. Musculoskeletal: He exhibits no edema. Neurological: Waxing and waning level of alertness oscillating between somnolence and unresponsiveness la sting 10-20 seconds at a time/ has difficulty to keep his eyes open/ dysarthric speech. Face symmetric. Tongue midline. Moves all extremities to command with muscle strength 3-4 out of 5 bilaterally. Cannot complete finger to nose nor pronator drift assessment. Oriented to self and partially to place (I am in the hospital). Needs frequent prompts verb ally to maintain attention and alertness in the very limited fashion. Skin: Skin is warm and dry. Capillary refill takes less than 2 seconds. He is not diaphoret ic. Psychiatric: He has a normal mood and affect. DATA No results found for any previous visit. ] Imaging No results found. HOSPITAL PROBLEM Principal Problem: Recurrent episodes of unresponsiveness Active Problems: Hx of seizure disorder on chronic keppra therapy Urinary retention Essential hypertension ASSESSMENT & PLAN 82-year-old male with prior history of seizure disorder on Keppra therapy who presents to [facility] emergency room with altered mental status, so far with negative imaging work up of the brain including negative MRI at outside hospital. Transferred for needed EEG and n eurological consultation. He presents with the followin. Recurrent episodes of unresponsiveness/dysarthria. - Historically this presentation is very similar per family members to remote diagnosis of seizure disorder when he was first identified. Patient has been compliant with his Keppra th erapy reportedly at home. - Continues to have waxing and waning level of alertness with dysarthria, along with interm ittent agitation. - So far imaging studies outlined above are negative for acute stroke. - EEG ordered stat. - Neurology consult/ case discussed with Dr. Tomas.; For now continue Keppra at a dose of 150 0 mg po bid ( may need IV form if unable to tolerate po ). Further recommendation by neurology based on EEG result. - Hold medications with anticholinergic properties/oxybutynin ( [facility] may contribute to somnolence and agitation which otherwise cannot be explaine d; not recommended for patients above 65) 2. Acute urinary retention and more than 1200 mL's of urine in the bladder/inability to voi d. - Required straight catheter placement for drainage; may repeat prn bladder volume more joao n 500 mL's - Continue intermittent bladder scans with handheld ultrasound. - May require Lenz catheter placement and if more than 3 episodes of straight catheter rolando dder drainage will be required. 3. Deep vein thrombosis prophylaxis SCDs and subcu Lovenox ( once EEG negative for seizur e ). Disposition: Inpatient Code Status: Full code Primary Care Physician: No primary care provider on file. Marnie Mahmood MD 07/16/2018 8:20 PM documented in this encounter Procedure Notes Conversion Transaction, Provider Unknown - 07/16/2018 8:45 PM PSTFormatting of this note m ight be different from the original. Procedures by Anali Cevallos RRT at 07/16/182044 Author: Anali Cevallos RRT Service: Neurology Author Type: creative technologist Filed: 07/16/182044 Date of Service: 07/16/182044 Status: Signed Cube Cutter: Anali Cevallos RRT (creative technologist) Procedure Orders: 1. EEG [[id number]] ordered by Marnie Mahmood MD at 07/16/181836 [facility] [address] [place] [address] Patient: Mandeep Diop ID: [id number] : 1935 Age: 82 Gender: male Room #: 8119 Physician: Umesh Tomas Beadworker: Anali Cevallos Ref. Physician: Marnie Mahmood MD Recording Date: 07/16/2018 Duration: 00:20:23 Report Date: 07/16/2018 8:12 PM Medications: keppra, Dilantin loaded before brought to [facility], , versed earlier today for MRI, , ativan earlier today History: change in speech and altered mental status, history of seizures EEG Technique: This is a portable 19 channel EEG recorded using the standard 10-20 electrode placement. EEG Findings: During wakefulness, background was symmetric and consisted of 6-7 Hz theta rhythm of modera te amplitudes. Posterior dominant rhythm was poorly formed. Sleep activities were not observ ed. Photic stimulation did not induce abnormal photoparoxismal responses. Hyperventilation w as not performed. Interictally, no focal, lateralized, or epileptiform abnormalities were se en. Interpretation: This EEG is abnormal due to diffuse theta slowing of the background, that suggests a mild t o moderate, etiologically nonspecific generalized encephalopathy. Clinical correlation is re commended. docume nted in this encounter Consult Notes Umesh Tomas MD - 07/17/2018 6:24 AM PSTFormatting of this note might be different from the o riginal. Consults by Umesh Tomas MD at 07/17/18623 Author: Umesh Tomas MD Service: Neurology Author Type: Physician Filed: 07/17/18 1228 Date of Service: 07/17/18623 Status: Addendum Cube Cutter: Umesh Tomas MD (Physician) Related Notes: Original Note by Umesh Tomas MD (Physician) filed at 07/17/18 1226 Consult Orders: 1. Consult to Neurology [[id number]] ordered by Marnie Mahmood MD at 07/16/18 1837 Consult to Neurology Consult performed by: UMESH TOMAS Consult ordered by: MARNIE MAHMOOD [facility] Service: Neurology Initial Consult Note Date of Admission: 07/16/2018 Reason for Consultation: Altered mental status. History of seizure disorder History Obtained From: patient, chart review CHIEF COMPLAINT: Altered mental status. Change in speech HISTORY OF PRESENT ILLNESS The patient is a 82 y.o. male with significant past medical history of seizure disorder, BP H, HTN, COPD, DELFINA on CPAP who was transferred from [facility] due to altered mental status and concerns for seizures. The patient was brought to [facility] ED yesterday due to altered mental status and slurred speech. He had difficulty put puzzles together as he usually does in the mornings. Family r eports that he had similar presentation with confusion for 2-3 days after a seizure. At OSH, the patient had CT angiogram of the head and neck, which showed "No sign of stenosis". MRI brain showed "no acute changes". Chest x-ray was unremarkable. CBC, CMP, UA were unremarkabl e except mild thrombocytopenia. Due to his seizure history, there is concern of ongoing seiz ure therefore patient was transferred to [facility]. The patient was given 8 mg of Versed at and loaded with fosphenytoin 1500 mg at [facility]. He takes Keppra 1500 mg bid and this is c ontinued. He has no fever. When he arrived at [facility], EEG showed encephalopathy with no seizure or epileptiform abnorm alities. The patient was noted to be confused and had visual hallucinations last night. Stra ight catheter drained 1200 ml of urine. Patient reports that he has seizures since 2007. He is not able to give me details of a typ e of seizure he has. Apparently his seizures are under good control. He has not had a seizur e for many years. He follows with Dr. Wright neurologist in [place] for seizure and obstr uctive sleep apnea. PAST MEDICAL HISTORY Past Medical History Diagnosis Date BPH (benign prostatic hyperplasia) COPD (chronic obstructive pulmonary disease) (HCC) History of completed stroke Per old records HTN (hypertension) on anti-HTN meds DELFINA on CPAP Seizure disorder (HCC) 2002 On Keppra PAST SURGICAL HISTORY Past Surgical History Procedure Laterality Date BASAL CELL CARCINOMA EXCISION Right forehead CATARACT EXTRACTION EXCISIONAL HEMORRHOIDECTOMY TRANSURETHRAL RESECTION OF PROSTATE ALLERGIES No Known Allergies HOME MEDICATIONS Prescriptions Prior to Admission Medication Sig Dispense Refill Last Dose finasteride (PROSCAR) 5 MG tablet Take 5 mg by mouth daily. 07/15/2018 at Unknown joanne e glucosamine-chondroitin 500-400 MG CAPS Take 1 capsule by mouth 2 (two) times daily. 07/15/2018 at Unknown time ipratropium-albuterol (COMBIVENT RESPIMAT) 20-100 MCG/ACT inhaler Inhale 1 puff into th e lungs every 6 (six) hours as needed for Wheezing. 4gm 07/15/2018 at Unknown time levetiracetam (KEPPRA) 750 MG tablet Take 1,500 mg by mouth 2 (two) times daily. 07/05 at Unknown time losartan (COZAAR) 50 MG tablet Take 50 mg by mouth Two times daily-Quinalones. 2017 at Unknown time NIFEdipine (PROCARDIA XL) 30 MG 24 hr tablet Take 30 mg by mouth 2 (two) times daily. 07/15/2018 at Unknown time oxybutynin (DITROPAN) 5 MG tablet Take 10 mg by mouth daily. 07/15/2018 at Unknown ti me senna-docusate (PERICOLACE) 8.6-50 MG per tablet Take 1 tablet by mouth daily. 2017 at Unknown time Scheduled Medications enoxaparin 40 mg Subcutaneous Q24H finasteride 5 mg Oral Daily levetiracetam 1,500 mg Oral BID losartan 50 mg Oral BIDQ NIFEdipine 30 mg Oral BID pneumococcal 23-valent vaccine 0.5 mL Intramuscular Once Immunization senna-docusate 1 tablet Oral Daily Continuous Infusions sodium chloride (IV) 75 mL/hr at 07/16/18 1900 PRN Medications acetaminophen OR acetaminophen, hydrALAZINE, ipratropium-albuterol, LORazepam, ondanset guerita OR ondansetron, polyethylene glycol, zolpidem FAMILY HISTORY No family history on file. SOCIAL HISTORY History Smoking Status Not on file Smokeless Tobacco Not on file History Alcohol use Not on file History Drug use: Unknown History Sexual Activity Sexual activity: Not on file REVIEW OF SYSTEMS In addition to HPI, a comprehensive 10 system ROS also revealed: Negative except noted in HPI PHYSICAL EXAM Vital Signs: BP 137/71 (BP Location: Left upper arm) | Pulse 58 | Temp 96.8 F (36 C) (Axillary) | Resp 20 | Ht 1.803 m (5' 11") | Wt 76.2 kg (167 lb 15.9 oz) | SpO2 96% | BMI 23.43 kg/m Temp (24hrs), Av.7 F (36.5 C), Min:96.8 F (36 C), Max:98.1 F (36.7 C) Systolic (24hrs), Av , Min:123 , Max:192 Diastolic (24hrs), Av, Min:71, Max:97 General Exam WDWN, NAD Lungs are clear. Heart is regular Neuro Exam MS Awake, alert, oriented to self, year, month, thinks date is 12, thinks he is at [facility]. Cooperative and appropriate during the encounter. Speech is mildly dysarthric. CN VFF to confrontation. EOMI. PERRLA. Facial sensation is intact. Face is symmtric. Palate elevation is symmetric. Tongue protrusion is midline. Motor Bulk and Tone: normal Muscle strength: full in except 3/5 RUE per patient due to injury in 1980s. Sensory Grossly intact to light touch. Coordination FNF intact on the left Gait Deferred DATA Results for orders placed or performed during the hospital encounter of 07/16/18 (from the past 24 hour(s)) CBC W/Auto Diff (Reflex to Manual) Collection Time: 07/17/18 5:16 AM Result Value Ref Range WBC 6.73 3.80 - 11.00 K/uL RBC 5.30 4.20 - 5.70 M/uL HGB 14.1 13.2 - 17.0 g/dL HCT 42.8 39.0 - 50.0 % MCV 80.7 80.0 - 100.0 fl MCH 26.6 (L) 27.0 - 34.0 pg MCHC 33.0 32.0 - 35.5 g/dL RDW SD 42.9 37 - 53 fl PLT 116 (L) 150 - 400 K/uL MPV 10.1 fl DIFF TYPE AUTOMATED NEUTROPHILS 71.68 % LYMPHOCYTES 13.41 % MONOCYTES 11.20 % EOSINOPHILS 2.64 % BASOPHILS 1.07 % NEUTROPHILS ABS 4.82 1.90 - 7.40 K/uL LYMPHOCYTES ABS 0.90 (L) 1.00 - 3.90 K/uL MONOCYTES ABS 0.75 0.00 - 0.80 K/uL EOSINOPHILS ABS 0.18 0.00 - 0.50 K/uL BASOPHILS ABS 0.07 0.00 - 0.10 K/uL MORPHOLOGY RBC AND PLT MORPHOLOGY APPEAR NORMAL Magnesium Collection Time: 07/17/18 5:16 AM Result Value Ref Range MAGNESIUM 2.0 1.7 - 2.4 mg/dL Phosphorus Collection Time: 07/17/18 5:16 AM Result Value Ref Range PHOSPHORUS 2.4 2.3 - 4.8 mg/dL Comprehensive Metabolic Panel Collection Time: 07/17/18 5:16 AM Result Value Ref Range SODIUM 141 135 - 145 mmol/L POTASSIUM 3.3 (L) 3.5 - 4.9 mmol/L CHLORIDE 107 99 - 109 mmol/L CO2 23 23 - 32 mmol/L ANION GAP AGAP 14 5 - 20 mmol/L GLUCOSE 95 65 - 99 mg/dL BUN 11 8 - 25 mg/dL CREATININE 0.8 0.70 - 1.30 mg/dL BUN/CREAT 14 CALCIUM 8.6 8.5 - 10.5 mg/dL TOTAL PROTEIN 7.2 6.3 - 8.2 g/dL Albumin 3.4 3.3 - 4.8 g/dL GLOBULIN 3.8 1.3 - 4.9 g/dL A/G 0.9 (L) 1.0 - 2.4 TBIL 1.3 0.1 - 1.5 mg/dL ALK PHOS 103 35 - 115 U/L AST 17 10 - 45 U/L ALT 20 10 - 65 U/L EGFR >60 >60 mL/min/1.73m2 Glycohemoglobin A1C Collection Time: 07/17/18 5:16 AM Result Value Ref Range HEMOGLOBIN A1C 5.4 4.0 - 6.0 % ESTIMATED AVG GLUCOSE 108 <154 mg/dL TSH Collection Time: 07/17/18 5:16 AM Result Value Ref Range TSH 1.660 0.450 - 5.100 uIU/mL PROBLEM LIST Principal Problem: Recurrent episodes of unresponsiveness Active Problems: Hx of seizure disorder on chronic keppra therapy Urinary retention Essential hypertension ASSESSMENT & PLAN 82 year old male with history of seizure who presents with altered mental status and slurre d speech. Brain MRI, CTA head/neck were unremarkable. EEG showed encephalopathy and no seizu re. He has significant urinary retention. He has no fever or leukocytosis. He appear much be tter this morning. He likely has a generalized encephalopathy. This could be secondary to his urinary retentio n and medication. I cannot definitely rule out a seizure at night (patient stays in his own bedroom) but feel chance is not high. I do not believe it is indicated to increase his keppr a given his current presentation. He is already on a high dose keppra for his age. Recommend to continue optimize medical parameters, supportive care. Consider to check a kep pra trough level if he is still confused but he can also follow with his neurologist, Dr. Edgar wang for this. Reviewed safety issues including no driving within the 6 months following any events of johnathan den loss of consciousness or sudden loss of control of body. Please call if there are further questions. Code Status: Full Code Primary Care Physician: No primary care provider on file. Thank you for allowing me to participate in the care of this patient. Please call if there are any questions. Umesh Tomas MD 07/17/2018 6:24 AM documented in this encounte r Miscellaneous Notes Plan of Care - Conversion Transaction, Provider Unknown - 07/21/2018 10:39 AM PST Plan of Care by Primitivo Olsen RN at 07/21/18 103 Author: Primitivo Olsen RN Service: (none) Author Type: Registered Nurse Filed: 07/21/18 103 Date of Service: 07/21/18 103 Status: Signed Cube Cutter: Primitivo Olsen RN (Registered Nurse) Problem: Neurological Deficit Goal: Neurological status is stable or improving Monitor and assess patient's level of consciousness, motor function, sensory function, and level of assistance needed for ADLs. Monitor and report changes from baseline. Collaborate with interdisciplinary team to initiate plan and implement interventions as ordered. Frequent neuro assessments lan o f Care - Conversion Transaction, Provider Unknown - 07/21/2018 12:00 AM PSTFormatting of thi s note might be different from the original. Plan of Care by Paddy Rico RN at 07/21/18 0000 Author: Paddy Rico RN Service: (none) Author Type: Registered Nurse Filed: 07/21/18 0000 Date of Service: 07/21/18 0000 Status: Signed Cube Cutter: Paddy Rico RN (Registered Nurse) Problem: Safety Goal: Patient will be injury free during hospitalization Assess and monitor vitals signs, neurological status including level of consciousness and o rientation. Assess patient's risk for falls and implement fall prevention plan of care and i nterventions per hospital policy. Ensure arm band on, uncluttered walking paths in room, adequate room lighting, call light a nd overbed table within reach, bed in low position, wheels locked, side rails up per policy, and non-skid footwear provided. Outcome: Progressing Pt encouraged to use call light. Bed alarm on and fall mats next to bed. No falls this shif t. lan o f Care - Conversion Transaction, Provider Unknown - 07/20/2018 12:32 PM PSTFormatting of thi s note might be different from the original. Plan of Care by Sophy Stark RN at 07/20/18 1232 Author: Sophy Stark RN Service: (none) Author Type: Registered Nurse Filed: 07/20/18 1232 Date of Service: 07/20/18 123 Status: Signed Cube Cutter: Sophy Stark RN (Registered Nurse) Problem: Pain Goal: Patient's pain/discomfort is manageable Assess and monitor patient's pain using appropriate pain scale. Collaborate with interdisci plinary team and initiate plan and interventions as ordered. Re-assess patient's pain level approximately 1-2 hours after pain management intervention. Premedicate as needed. Outcome: Progressing Pt denies any pain at this time. lan o f Care - Conversion Transaction, Provider Unknown - 07/20/2018 2:39 AM PSTFormatting of thi s note might be different from the original. Plan of Care by Paddy Rico RN at 07/20/18238 Author: Paddy Rico RN Service: (none) Author Type: Registered Nurse Filed: 07/20/18238 Date of Service: 07/20/18238 Status: Signed Cube Cutter: Paddy Rico RN (Registered Nurse) Problem: Daily Care Goal: Daily care needs are met Assess and monitor ability to perform self care and identify potential discharge needs. Outcome: Progressing Pt encouraged to perform self care independently. Pt using call light at times. Bed alarm o n and pt has set it off. Pt remains free of falls this shift. lan o f Care - Conversion Transaction, Provider Unknown - 07/19/2018 11:18 AM PSTFormatting of thi s note might be different from the original. Plan of Care by Sophy Stark RN at 07/19/181117 Author: Sophy Stark RN Service: (none) Author Type: Registered Nurse Filed: 07/19/181117 Date of Service: 07/19/181117 Status: Signed Cube Cutter: Sophy Stark RN (Registered Nurse) Problem: Pain Goal: Patient's pain/discomfort is manageable Assess and monitor patient's pain using appropriate pain scale. Collaborate with interdisci plinary team and initiate plan and interventions as ordered. Re-assess patient's pain level approximately 1-2 hours after pain management intervention. Premedicate as needed. Outcome: Progressing Pt denies any pain at this time. lan o f Care - Conversion Transaction, Provider Unknown - 07/19/2018 2:35 AM PSTFormatting of thi s note might be different from the original. Plan of Care by Paddy Rico RN at 07/19/18234 Author: Paddy Rico RN Service: (none) Author Type: Registered Nurse Filed: 07/19/18234 Date of Service: 07/19/18234 Status: Signed Cube Cutter: Paddy Rico RN (Registered Nurse) Problem: Safety Goal: Patient will be injury free during hospitalization Assess and monitor vitals signs, neurological status including level of consciousness and o rientation. Assess patient's risk for falls and implement fall prevention plan of care and i nterventions per hospital policy. Ensure arm band on, uncluttered walking paths in room, adequate room lighting, call light a nd overbed table within reach, bed in low position, wheels locked, side rails up per policy, and non-skid footwear provided. Outcome: Progressing Pt encouraged to call prior to ambulating. Pt bed alarm is on and fall mats next to bed. Pt asked if he needs to urinate to try preventing pt from ambulating independently. lan o f Care - Conversion Transaction, Provider Unknown - 07/18/2018 3:20 PM PSTFormatting of thi s note might be different from the original. Plan of Care by Daphne Saldaña RN at 07/18/18 1520 Author: Daphne Saldaña RN Service: (none) Author Type: Registered Nurse Filed: 07/18/18 152 Date of Service: 07/18/181519 Status: Signed Cube Cutter: Daphne Saldaña RN (Registered Nurse) Problem: Safety Goal: Patient will be injury free during hospitalization Assess and monitor vitals signs, neurological status including level of consciousness and o rientation. Assess patient's risk for falls and implement fall prevention plan of care and i nterventions per hospital policy. Ensure arm band on, uncluttered walking paths in room, adequate room lighting, call light a nd overbed table within reach, bed in low position, wheels locked, side rails up per policy, and non-skid footwear provided. Outcome: Progressing Pt up to chair with physical therapy, tab alarm in place Jenny Gu V PT - 07/18/2018 2:15 PM PSTFormatting of this note might be diffe rent from the original. Treatment Plan by Jenny Higgins V PT at 07/18/18 8787 Author: Jenny Phelps PT Service: (none) Author Type: Physical Therapist Filed: 07/18/18 1655 Date of Service: 07/18/18 1415 Status: Signed Cube Cutter: Jenny Higgins V PT (Physical Therapist) PHYSICAL THERAPY EVALUATION PT Received On: 07/18/18 Reason for Treatment: Deconditioning Requires PT Follow Up: Yes Follow up PT Only?: No PT Eval/Reassessment Date: 07/18/18 Assistance Required: 1 person Detention Attendant Needed: No Recommendations: SNF Equipment Recommended: Walker front wheeled Barriers to Discharge: Equipment Needs (see comment), Self-care Deficits Impacting Function al [place], Physical Deficits Impacting Functional [place], Cognitive Deficits Imp acting Functional [place], Lack of Family Support/Training Plan Treatment/Interventions: Gait training, Review precautions, Therapeutic exercise PT Frequency: 2-3x/wk Care Duration (# of days): 7 # of days Summary Comments: 82 yo M pt presents to hospital s/p unwitnessed fall. Pt reports passing out and awaking in the hospital. States he thinks [facility]'s in a mental institution. Pt presents reclined in bed, awake and alert. Pt stated he needed to use the bathroom and proceeded to climb out of bed, was stopped before he could continue to the bathroom to hand pt FWW for safety. Pt ambulated to bathroom, took 2 min seated rest break, given VC for appropriate hand placement and sequencing, stood, and ambulated into room again. Pt ambulated out into hallway, given VC for appropriate use of FWW and to take appropriate steps. Pt became SOB, returned to room to sit in chair. Pt answered eval questions, was educated on calling the nurse when he want s to get up from chair. Precautions Other Precautions: fall risk Cognition Overall Cognitive Status: Impaired Orientation Level: Oriented, Disoriented Oriented: To person, To time Disoriented: To place, To situation Comments: Pt demonstrates difficulty following VC consistently, pt unaware of physical limi tations Assessment of Patient Status Assessment of Patient Status: Decreased functional mobility, Decreased ADL status, Decreas ed cognition, Decreased safety judgement during mobility, Decreased ability to follow comman ds, Decreased safety awareness, Decreased insight into deficits, Decreased endurance, Precau tions Prognosis: Should progress with skilled therapy intervention Home Environment Type of Home: Home one story Home Exterior Layout: 1-3 steps, Rail none Home Interior Layout: Lives on main level with bedroom/bathroom Bathroom Shower/Tub: Tub/shower unit Bathroom Toilet: Standard Bathroom Accessibility: Not accessible Home Equipment: None Prior Function Level of [place]: Independent with functional mobility, Independent with ADLs, Indepe ndent with IADLs Falls in Past Year: Yes (1) Lives With: Spouse Receives Help From: Family Employment: Retired for age Leisure: Hobbies-yes (Comment) (denny) RUE Assessment: Within Functional Limits LUE Assessment: Within Functional Limits RLE Assessment: Within Functional Limits LLE Assessment: Within Functional Limits Sensation Light Touch: No apparent deficits Additional Comments: pt states he has tingling in his feet sometimes FUNCTIONAL MOBILITY Bed Mobility Supine to Sit: Supervision Scooting : Supervision Transfers Sit to/from Stand: Minimal assist (steadying/contact guard) Ambulation Maximal Ambulation Distance (feet): 100 Total Ambulation Distance (feet): 110 (10, 100) Ambulation Assistance: Minimal assist, X1 Distance limited by?: Patient's ability Pattern: Right swing foot doesn't pass stance foot, Left swing foot doesn't pass stance karley t, Shuffling, Narrow base, Forward flexed (increased rashad) Assistive Device: Walker front wheeled Activity Tolerance: Patient limited by fatigue, Patient limited by shortness of breath (SO B) Nurse Made Aware: ALIS Hsieh Safety Devices in Place: Yes (call burnett in reach,chair alarm on,leg rest up,table in front) The patient demonstrated no indication of pain during therapy session. Education Completed: Education Topics: [x] Rationale for PT [x] PT POC [x] DC planning [x] Precautions [] Exercises [x] Bed mobility [x] Transfer training with hand placement [x] Gait training [] Stair training [] Use of gait belt [] Other Completed with: [x] Patient [] Spouse [] Significant other [] Family [] C aregiver [] Other Completed by: [x] Verbal education [x] Demonstration [] Handout [] Other: Response to Education: [x] Stated Understanding [x] Reinforcement necessary [x] Returned demonstration [] Demonstrated understanding [] No evidence of learning [] Refused PT Goals Goal Formulation: With patient Pt Will Go Supine To Sit: With modified independence Pt Will Go Sit To Supine: With modified independence Pt Will Log[place]: With modified independence Pt Will Transfer Sit to Stand: With minimal assist Pt Will Ambulate: greater than 200 feet Ambulate Level Assist: With minimal assist Ambulate with Assistive Device: Walker front wheeled Pt Will Go Up / Down Stairs: 3-5 stairs Stairs Level of Assist: With minimal assist Up/Down Stairs Technique: Bilateral rails Low - 45098 Moderate - 18884 High - 92699 History [] no personal factors &/or comorbidities [] 1-2 personal factors &/or comorbiditi es [x] 3 or more personal factors &/or comorbidities Examination [] 1-2 elements [x] 3 elements [] 4 or more elements Clinical Presentation [x] stable [] evolving [] unstable Clinical Decision Making Complexity: [x] Low 66270 [] Moderate 32953 [] High 9 7163 Past Medical History Diagnosis Date BPH (benign prostatic hyperplasia) COPD (chronic obstructive pulmonary disease) (HCC) 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 Outcome: Progressing Fall mat in place, bed alarm on, bed in low locked position, call light within reach, frequ ent rounding for pt needs. lan o f Care - Conversion Transaction, Provider Unknown - 07/17/2018 5:16 PM PSTFormatting of thi s note might be different from the original. Plan of Care by Daphne Saldaña RN at 07/17/181715 Author: Daphne Saldaña RN Service: (none) Author Type: Registered Nurse Filed: 07/17/181715 Date of Service: 12/13/18 1716 Status: Signed Cube Cutter: Daphne Saldaña RN (Registered Nurse) Problem: Safety Goal: Patient will be injury free during hospitalization Assess and monitor vitals signs, neurological status including level of consciousness and o rientation. Assess patient's risk for falls and implement fall prevention plan of care and i nterventions per hospital policy. Ensure arm band on, uncluttered walking paths in room, adequate room lighting, call light a nd overbed table within reach, bed in low position, wheels locked, side rails up per policy, and non-skid footwear provided. Outcome: Progressing Bed alarm in place, bed locked in low position, fall mat in place. Call is within reach and patient has been using call light for assistance getting out of bed. Kary Franz MS CCC-SPACE OPERATIONS OFFICER - 07/17/2018 10:25 AM PST Treatment Plan by Kary Anderson MS CCC-SPACE OPERATIONS OFFICER at 07/17/18 1025 Author: Kary Anderson MS CCC-SPACE OPERATIONS OFFICER Service: (none) Author Type: Speech and Language Pat hologist Filed: 07/17/18 1113 Date of Service: 07/17/18 1025 Status: Signed Cube Cutter: Kary Anderson MS CCC-SPACE OPERATIONS OFFICER (Speech and Language Pathologist) BEDSIDE SWALLOW SPACE OPERATIONS OFFICER Last Visit SPACE OPERATIONS OFFICER Received On: 07/17/18 Requires SPACE OPERATIONS OFFICER Follow Up: Yes Recommendations Liquids Consistency Recommendations: [place] thick Diet Consistency Recommendation: Dysphagia mechanically altered Recommendations: Dysphagia treatment, 1:1 supervision Risk for Aspiration: Moderate Compensatory Swallowing Strategies: Upright as possible for all oral intake, Slow rate pres entation, Small bites/sips Recommended Form of Meds: Meds crushed in puree Summary: Pt is a 82yom who was admitted 07/16 d/t AMS. PMH includes a seizure disorder dx i n 2002 and maintained on Keppra, HTN, COPD, and DELFINA. CT/MRI were negative for any acute cruz ges, CXR negative. Swallow evaluation ordered d/t pt chewing medications and reports of s/sx aspiration with medications. Pt was seen today while upright in bed. Pt was agreeable to th e session, but required some cueing to maintain adequate alertness. He did not endorse any change in swallow function. OME performed indicated functional strength, symmetry, and ROM o f speech and swallowing structures. Volitional swallow was notably delayed, with multiple at tempts to intiate prior to completion of the swallow, as assessed by laryngeal palpation. Pt was presented with PO trials of ice chips, thin liquids, nectar-thick liquids, puree, DMA, and mech soft media. With all trials, pt had somewhat hyperextended neck positioning and req uired cueing to keep head neutral. With all consistencies, pt also had a notably audible swa llow. When presented with thin liquids, pt took a very large sip and attempted to peicemeal swallow. During this process, liquid could audibly be heard in throat via gurgling prior th e swallow indicative of delayed swallow intiation. Following the swallow pt demonstrated not ably wet vocal quality, indicative of likely penetration/aspiration. With NTL, pt remained w ith very audible swallow, but no s/sx penetration/aspiration. Pt did independently perform 2 -3 swallows. With puree and DMA textures pt demonstrated appropriate mastication/manipulatio n and subesquent multiple swallows with no s/sx aspiraiton. Mechanical soft media resulted i n immediate coughing. Given need for cueing for head neutral position, recommend a DMA diet with NTL with 1:1 supervision for cueing and to ensure small bites/sips. Recommend medicatio ns crushed in puree. if pt demonstrates any overt s/sx aspiration with these consistencies, please d/c PO intake and contact SPACE OPERATIONS OFFICER. ST to follow closely for tolerance. Staff Notified: , RN Plan of Care Treatment Plan: ST to follow, Dysphagia treatment Treatment Frequency: 4-6 x/week Care Duration (Days): 7 Days Follow up treatments: Assessment for upgrade, Swallow strategies, Diet tolerance monitoring Swallowing Evaluation: Yes Patient Assessment Temperature Spikes Noted: No Respiratory Status: Room air History of Intubation: No Behavior/Cognition: Cooperative, Requires cueing Dentition: Adequate Vision: Impaired for self-feeding Patient Positioning: Upright in bed Baseline Vocal Quality: Weak, Other (comment) (sounds presbyphonic) Volitional Cough: Strong Volitional Swallow: Delayed, Other (comment) (multiple attempts prior to completion of swal low) Oral Motor Exam Labial ROM: Within Functional Limits Labial Symmetry: Within Functional Limits Labial Strength: Within Functional Limits Lingual ROM: Within Functional Limits Lingual Symmetry: Within Functional Limits Lingual Strength: Within Functional Limits Facial Symmetry: Within Functional Limits Vocal Quality: Weak, Other (comment) (sounds presbyphonic) Velum: Within Functional Limits Mandible: Within Functional Limits Consistencies Consistencies Assessed: Yes Ice Chips Presentation: Spoon Oral Phase: Prolonged mastication Pharyngeal Phase: Delayed swallow initiation, Spontaneous double swallow Thin Presentation: Cup, Self Fed Oral Phase Thin: Other (comment) (takes VERY large sips) Pharyngeal Phase: Decreased laryngeal elevation upon palpation, Delayed swallow initiated, Wet vocal quality, Other (Comment) (very audible swallow) [place] Presentation: Straw Oral: Increased Anterior to Posterior Transit Pharyngeal Phase: Delayed swallow initiated, Spontaneous multiple swallow, Other (comments) (audible swallow) Puree Presentation: Spoon Oral Phase: Within functional limits Pharyngeal: Delayed Swallow, Spontaneous multiple swallow Dysphagia Mechanically Altered Presentation: Spoon Oral Phase: Within functional limits Pharyngeal Phase: Delayed Swallow, Other (comments) (spontaneous multiple swallows) Mechanical Soft Mechanical Soft - Presentation: Spoon Mechanical Soft - Oral: Within Functional Limits Mechanical Soft - Pharyngeal: Delayed swallow, Cough-immediate, Other (Comment) (spontaneou s multiple swallows) Goals are progressing unless otherwise indicated. Dysphagia Goals Retirement Goals: Safe/efficient oral intake Pt will have safe/efficient oral intake : Thin liquids, Regular diet, With min cues, New/re vised goal Short Term Goals: Follow swallow precautions Pt will follow swallow precautions : With min supervision, New/revised goal Education Completed Education Topics: Dysphagia: Explain results of session, speech-language pathology role, plan of care, most s afe diet and swallow precautions Completed with: [x] Patient [] Spouse [] Significant other [] Family [] Caregiver [] Other Completed by: [x] Verbal education [] Demonstration [] Handout [] Other: Response to Education: [x] Stated Understanding [] Reinforcement necessary [] Return ed demonstration [] Demonstrated understanding [] No evidence of learning [] Refused Kary Anderson MS CCC-SPACE OPERATIONS OFFICER 07/17/18 11:13 AM lan of Care - Conversion Transaction, Provider Unknown - 07/16/2018 10:27 PM PST Plan of Care by Monique Babcock RN at 07/16/182226 Author: Monique Babcock RN Service: (none) Author Type: Registered Nurse Filed: 07/16/182226 Date of Service: 07/16/182226 Status: Signed Cube Cutter: Monique Babcock RN (Registered Nurse) Problem: Knowledge Deficit Goal: Patient will remain free from falls: High Risk ([place] 51+) Outcome: Progressing Fall mat in place, Bed in low locked position, call light within reach, hourly rounding for pt needs. docume nted in this encounter Plan of Treatment Not on filedocumented as of this encounter Procedures + +--------+ + + + | Procedure Name | Priori | Date/Time | Associated Diagnosis | Comments | | | ty | | | | + +--------+ + + + | EXTERNAL LAB: CBC | Routin | 07/19/2018 | | Results for this | | | e | 5:52 AM | | procedure are in the | | | | PST | | results section. | + +--------+ + + + | BASIC METABOLIC | Routin | 07/19/2018 | | Results for this | | PANEL | e | 5:52 AM | | procedure are in the | | | | PST | | results section. | + +--------+ + + + | EXTERNAL LAB: CBC | Routin | 07/18/2018 | | Results for this | | | e | 6:01 AM | | procedure are in the | | | | PST | | results section. | + +--------+ + + + | BASIC METABOLIC | Routin | 07/18/2018 | | Results for this | | PANEL | e | 6:01 AM | | procedure are in the | | | | PST | | results section. | + +--------+ + + + | LEVETIRACETAM LEVEL | Routin | 07/17/2018 | | Results for this | | | e | 9:49 AM | | procedure are in the | | | | PST | | results section. | + +--------+ + + + | EXTERNAL LAB: CBC | Routin | 07/17/2018 | | Results for this | | | e | 5:16 AM | | procedure are in the | | | | PST | | results section. | + +--------+ + + + | TSH | Routin | 07/17/2018 | | Results for this | | | e | 5:16 AM | | procedure are in the | | | | PST | | results section. | + +--------+ + + + | PHOSPHORUS | Routin | 07/17/2018 | | Results for this | | | e | 5:16 AM | | procedure are in the | | | | PST | | results section. | + +--------+ + + + | MAGNESIUM | Routin | 07/17/2018 | | Results for this | | | e | 5:16 AM | | procedure are in the | | | | PST | | results section. | + +--------+ + + + | HEMOGLOBIN A1C | Routin | 07/17/2018 | | Results for this | | | e | 5:16 AM | | procedure are in the | | | | PST | | results section. | + +--------+ + + + | COMPREHENSIVE | Routin | 07/17/2018 | | Results for this | | METABOLIC PANEL | e | 5:16 AM | | procedure are in the | | | | PST | | results section. | + +--------+ + + + | CT HEAD WO CONTRAST | Routin | 07/16/2018 | | Results for this | | | e | 8:51 AM | | procedure are in the | | | | PST | | results section. | + +--------+ + + + | CT ANGIOGRAM HEAD | Routin | 07/16/2018 | | Results for this | | NECK W CONTRAST | e | 8:51 AM | | procedure are in the | | | | PST | | results section. | + +--------+ + + + | XR CHEST 1 VIEW | Routin | 07/16/2018 | | Results for this | | | e | 4:47 AM | | procedure are in the | | | | PST | | results section. | + +--------+ + + + | MRI BRAIN WO | Routin | 07/16/2018 | | Results for this | | CONTRAST | e | 3:48 AM | | procedure are in the | | | | PST | | results section. | + +--------+ + + + documented in this encounter Results External Lab: [facility] (07/19/2018 5:52 AM PST) + + + + + + | Component | Value | Ref Range | Performed | Pathologist | | | | | At | Signature | + + + + + + | WBC | 6.84 | 3.80 - 11.00 | EXTERNAL | | | | | K/uL | LAB | | + + + + + + | Red Blood | 5.06 | 4.20 - 5.70 | EXTERNAL | | | Cells | | M/uL | LAB | | | Counted | | | | | + + + + + + | Hemoglobin | 13.5 | 13.2 - 17.0 | EXTERNAL | | | | | g/dL | LAB | | + + + + + + | Hematocrit, | 40.8 | 39.0 - 50.0 % | EXTERNAL | | | POC | | | LAB | | + + + + + + | MCV | 80.7 | 80.0 - 100.0 fl | EXTERNAL | | | | | | LAB | | + + + + + + | MCH | 26.6 (L) | 27.0 - 34.0 pg | EXTERNAL | | | | | | LAB | | + + + + + + | MCHC | 33.0 | 32.0 - 35.5 | EXTERNAL | | | | | g/dL | LAB | | + + + + + + | RDW-CV | 41.6 | 37 - 53 fl | EXTERNAL | | | | | | LAB | | + + + + + + | Platelet | 107 (L) | 150 - 400 K/uL | EXTERNAL | | | Count | | | LAB | | | Plasma | | | | | + + + + + + | MPV | 10.1 | fl | EXTERNAL | | | | | | LAB | | + + + + + + | Differentia | AUTOMATED | | EXTERNAL | | | l Type | | | LAB | | + + + + + + | % Segmented | 69.11 | % | EXTERNAL | | | | | | LAB | | | Neutrophils | | | | | + + + + + + | % | 14.51 | % | EXTERNAL | | | Lymphocytes | | | LAB | | + + + + + + | % Monocytes | 10.35 | % | EXTERNAL | | | | | | LAB | | + + + + + + | % | 5.04 | % | EXTERNAL | | | Eosinophils | | | LAB | | + + + + + + | % Basophils | 0.99 | % | EXTERNAL | | | | | | LAB | | + + + + + + | Absolute | 4.73 | 1.90 - 7.40 | EXTERNAL | | | Segmented | | K/uL | LAB | | | Neutrophils | | | | | + + + + + + | Absolute | 0.99 (L) | 1.00 - 3.90 | EXTERNAL | | | Lymphocytes | | K/uL | LAB | | + + + + + + | Absolute | 0.71 | 0.00 - 0.80 | EXTERNAL | | | Monocytes | | K/uL | LAB | | + + + + + + | Absolute | 0.35 | 0.00 - 0.50 | EXTERNAL | | | Eosinophils | | K/uL | LAB | | + + + + + + | Absolute | 0.07 | 0.00 - 0.10 | EXTERNAL | | | Basophils | | K/uL | LAB | | + + + + + + | RBC | 1+ | | EXTERNAL | | | Morphology | Comment: | | LAB | | | | PLATELET ANISOCYTOSIS | | | | | | NORMAL RBC MORPH | | | | | | | | | | + + + + + + | Platelet | INCREASEDComment: | | EXTERNAL | | | Estimate | Testing performed at | | LAB | | | | [facility], [address] [facility] | | | | | | [place] | | | | | | [address] | | | | + + + + + + + + | Specimen | + + | Blood specimen | | (specimen) | + + + +---------+ + + | Performing | Address | City/State/Zipcode | Phone Number | | Organization | | | | + +---------+ + + | EXTERNAL LAB | | | | + +---------+ + + Basic Metabolic Panel (07/19/2018 5:52 AM PST) + + + + + + | Component | Value | Ref Range | Performed | Pathologist | | | | | At | Signature | + + + + + + | Na | 141 | 135 - 145 | EXTERNAL | | | | | mmol/L | LAB | | + + + + + + | K | 3.7 | 3.5 - 4.9 | EXTERNAL | | | | | mmol/L | LAB | | + + + + + + | Cl | 106 | 99 - 109 mmol/L | EXTERNAL | | | | | | LAB | | + + + + + + | CO2 | 24 | 23 - 32 mmol/L | EXTERNAL | | | | | | LAB | | + + + + + + | Anion Gap | 15 | 5 - 20 mmol/L | EXTERNAL | | | | | | LAB | | + + + + + + | Glucose, | 91 | 65 - 99 mg/dL | EXTERNAL | | | Fasting | | | LAB | | + + + + + + | BUN | 12 | 8 - 25 mg/dL | EXTERNAL | | | | | | LAB | | + + + + + + | Creatinine | 0.8 | 0.70 - 1.30 | EXTERNAL | | | | | mg/dL | LAB | | + + + + + + | BUN/Creatin | 15 | | EXTERNAL | | | ine Ratio | | | LAB | | + + + + + + | Calcium | 8.4 (L) | 8.5 - 10.5 | EXTERNAL | | | | | mg/dL | LAB | | + + + + + + | Estimated | >60Comment: GFR <60: | mL/min/1.73m2 | EXTERNAL | | | GFR | CHRONIC KIDNEY DISEASE, | | LAB | | | | IF FOUND OVER A 3 MONTH | | | | | | PERIOD.GFR <15: KIDNEY | | | | | | FAILURE.FOR | | | | | | AMERICANS, MULTIPLY THE | | | | | | CALCULATED GFR BY | | | | | | 1.210.This eGFR is | | | | | | calculated using the | | | | | | MDRD IDMS traceable | | | | | | equation.Testing | | | | | | performed at [facility], [address] | | | | | | [address] [facility], | | | | | | [place] [address] | | | | + + + + + + + + | Specimen | + + | Blood specimen | | (specimen) | + + + +---------+ + + | Performing | Address | City/State/Zipcode | Phone Number | | Organization | | | | + +---------+ + + | EXTERNAL LAB | | | | + +---------+ + + External Lab: CBC (07/18/2018 6:01 AM PST) + + + + + + | Component | Value | Ref Range | Performed | Pathologist | | | | | At | Signature | + + + + + + | WBC | 11.59 (H) | 3.80 - 11.00 | EXTERNAL | | | | | K/uL | LAB | | + + + + + + | Red Blood | 5.14 | 4.20 - 5.70 | EXTERNAL | | | Cells | | M/uL | LAB | | | Counted | | | | | + + + + + + | Hemoglobin | 13.5 | 13.2 - 17.0 | EXTERNAL | | | | | g/dL | LAB | | + + + + + + | Hematocrit, | 41.5 | 39.0 - 50.0 % | EXTERNAL | | | POC | | | LAB | | + + + + + + | MCV | 80.8 | 80.0 - 100.0 fl | EXTERNAL | | | | | | LAB | | + + + + + + | MCH | 26.2 (L) | 27.0 - 34.0 pg | EXTERNAL | | | | | | LAB | | + + + + + + | MCHC | 32.4 | 32.0 - 35.5 | EXTERNAL | | | | | g/dL | LAB | | + + + + + + | RDW-CV | 42.9 | 37 - 53 fl | EXTERNAL | | | | | | LAB | | + + + + + + | Platelet | 108 (L) | 150 - 400 K/uL | EXTERNAL | | | Count | | | LAB | | | Plasma | | | | | + + + + + + | MPV | 10.0 | fl | EXTERNAL | | | | | | LAB | | + + + + + + | Differentia | AUTOMATED | | EXTERNAL | | | l Type | | | LAB | | + + + + + + | % Segmented | 79.47 | % | EXTERNAL | | | | | | LAB | | | Neutrophils | | | | | + + + + + + | % | 8.00 | % | EXTERNAL | | | Lymphocytes | | | LAB | | + + + + + + | % Monocytes | 9.34 | % | EXTERNAL | | | | | | LAB | | + + + + + + | % | 2.68 | % | EXTERNAL | | | Eosinophils | | | LAB | | + + + + + + | % Basophils | 0.51 | % | EXTERNAL | | | | | | LAB | | + + + + + + | Absolute | 9.21 (H) | 1.90 - 7.40 | EXTERNAL | | | Segmented | | K/uL | LAB | | | Neutrophils | | | | | + + + + + + | Absolute | 0.93 (L) | 1.00 - 3.90 | EXTERNAL | | | Lymphocytes | | K/uL | LAB | | + + + + + + | Absolute | 1.08 (H) | 0.00 - 0.80 | EXTERNAL | | | Monocytes | | K/uL | LAB | | + + + + + + | Absolute | 0.31 | 0.00 - 0.50 | EXTERNAL | | | Eosinophils | | K/uL | LAB | | + + + + + + | Absolute | 0.06Comment: Testing | 0.00 - 0.10 | EXTERNAL | | | Basophils | performed at [facility], [address] | K/uL | LAB | | | | [address] [place], | | | | | | [place] [address] | | | | + + + + + + + + | Specimen | + + | Blood specimen | | (specimen) | + + + +---------+ + + | Performing | Address | City/State/Zipcode | Phone Number | | Organization | | | | + +---------+ + + | EXTERNAL LAB | | | | + +---------+ + + Basic Metabolic Panel (07/18/2018 6:01 AM PST) + + + + + + | Component | Value | Ref Range | Performed | Pathologist | | | | | At | Signature | + + + + + + | Na | 142 | 135 - 145 | EXTERNAL | | | | | mmol/L | LAB | | + + + + + + | K | 3.4 (L) | 3.5 - 4.9 | EXTERNAL | | | | | mmol/L | LAB | | + + + + + + | Cl | 110 (H) | 99 - 109 mmol/L | EXTERNAL | | | | | | LAB | | + + + + + + | CO2 | 22 (L) | 23 - 32 mmol/L | EXTERNAL | | | | | | LAB | | + + + + + + | Anion Gap | 13 | 5 - 20 mmol/L | EXTERNAL | | | | | | LAB | | + + + + + + | Glucose, | 77 | 65 - 99 mg/dL | EXTERNAL | | | Fasting | | | LAB | | + + + + + + | BUN | 13 | 8 - 25 mg/dL | EXTERNAL | | | | | | LAB | | + + + + + + | Creatinine | 0.8 | 0.70 - 1.30 | EXTERNAL | | | | | mg/dL | LAB | | + + + + + + | BUN/Creatin | 16 | | EXTERNAL | | | ine Ratio | | | LAB | | + + + + + + | Calcium | 8.2 (L) | 8.5 - 10.5 | EXTERNAL | | | | | mg/dL | LAB | | + + + + + + | Estimated | >60Comment: GFR <60: | mL/min/1.73m2 | EXTERNAL | | | GFR | CHRONIC KIDNEY DISEASE, | | LAB | | | | IF FOUND OVER A 3 MONTH | | | | | | PERIOD.GFR <15: KIDNEY | | | | | | FAILURE.FOR | | | | | | AMERICANS, MULTIPLY THE | | | | | | CALCULATED GFR BY | | | | | | 1.210.This eGFR is | | | | | | calculated using the | | | | | | MDRD IDMS traceable | | | | | | equation.Testing | | | | | | performed at [facility], [address] | | | | | | [facility], | | | | | | [place] [address] | | | | + + + + + + + + | Specimen | + + | Blood specimen | | (specimen) | + + + +---------+ + + | Performing | Address | City/State/Zipcode | Phone Number | | Organization | | | | + +---------+ + + | EXTERNAL LAB | | | | + +---------+ + + Levetiracetam Level (07/17/2018 9:49 AM PST) + + + + + + | Component | Value | Ref Range | Performed | Pathologist | | | | | At | Signature | + + + + + + | LEVETIRACET | 18.6Comment: Reference | ug/mL | EXTERNAL | | | AM | range: 10.0 to | | LAB | | | | 40.0Testing performed at | | | | | | [facility], [address] | | | | | | [place] | | | | | | [address] | | | | + + + + + + + + | Specimen | + + | Blood specimen | | (specimen) | + + + +---------+ + + | Performing | Address | City/State/Zipcode | Phone Number | | Organization | | | | + +---------+ + + | EXTERNAL LAB | | | | + +---------+ + + External Lab: CBC (07/17/2018 5:16 AM PST) + + + + + + | Component | Value | Ref Range | Performed | Pathologist | | | | | At | Signature | + + + + + + | WBC | 6.73 | 3.80 - 11.00 | EXTERNAL | | | | | K/uL | LAB | | + + + + + + | Red Blood | 5.30 | 4.20 - 5.70 | EXTERNAL | | | Cells | | M/uL | LAB | | | Counted | | | | | + + + + + + | Hemoglobin | 14.1 | 13.2 - 17.0 | EXTERNAL | | | | | g/dL | LAB | | + + + + + + | Hematocrit, | 42.8 | 39.0 - 50.0 % | EXTERNAL | | | POC | | | LAB | | + + + + + + | MCV | 80.7 | 80.0 - 100.0 fl | EXTERNAL | | | | | | LAB | | + + + + + + | MCH | 26.6 (L) | 27.0 - 34.0 pg | EXTERNAL | | | | | | LAB | | + + + + + + | MCHC | 33.0 | 32.0 - 35.5 | EXTERNAL | | | | | g/dL | LAB | | + + + + + + | RDW-CV | 42.9 | 37 - 53 fl | EXTERNAL | | | | | | LAB | | + + + + + + | Platelet | 116 (L)Comment: SLIDE | 150 - 400 K/uL | EXTERNAL | | | Count | SCANNED, AGREES WITH | | LAB | | | Plasma | AUTOMATED RESULTS. | | | | + + + + + + | MPV | 10.1 | fl | EXTERNAL | | | | | | LAB | | + + + + + + | Differentia | AUTOMATED | | EXTERNAL | | | l Type | | | LAB | | + + + + + + | % Segmented | 71.68 | % | EXTERNAL | | | | | | LAB | | | Neutrophils | | | | | + + + + + + | % | 13.41 | % | EXTERNAL | | | Lymphocytes | | | LAB | | + + + + + + | % Monocytes | 11.20 | % | EXTERNAL | | | | | | LAB | | + + + + + + | % | 2.64 | % | EXTERNAL | | | Eosinophils | | | LAB | | + + + + + + | % Basophils | 1.07 | % | EXTERNAL | | | | | | LAB | | + + + + + + | Absolute | 4.82 | 1.90 - 7.40 | EXTERNAL | | | Segmented | | K/uL | LAB | | | Neutrophils | | | | | + + + + + + | Absolute | 0.90 (L) | 1.00 - 3.90 | EXTERNAL | | | Lymphocytes | | K/uL | LAB | | + + + + + + | Absolute | 0.75 | 0.00 - 0.80 | EXTERNAL | | | Monocytes | | K/uL | LAB | | + + + + + + | Absolute | 0.18 | 0.00 - 0.50 | EXTERNAL | | | Eosinophils | | K/uL | LAB | | + + + + + + | Absolute | 0.07 | 0.00 - 0.10 | EXTERNAL | | | Basophils | | K/uL | LAB | | + + + + + + | RBC | RBC AND PLT MORPHOLOGY | | EXTERNAL | | | Morphology | APPEAR NORMALComment: | | LAB | | | | Testing performed at | | | | | | [facility], [address] | | | | | | [place], [place] | | | | | | [address] | | | | + + + + + + + + | Specimen | + + | Blood specimen | | (specimen) | + + + +---------+ + + | Performing | Address | City/State/Zipcode | Phone Number | | Organization | | | | + +---------+ + + | EXTERNAL LAB | | | | + +---------+ + + TSH (07/17/2018 5:16 AM PST) + + + + + + | Component | Value | Ref Range | Performed | Pathologist | | | | | At | Signature | + + + + + + | TSH | 1.660Comment: Testing | 0.450 - 5.100 | EXTERNAL | | | | performed at [facility], [address] | uIU/mL | LAB | | | | [address] [place], | | | | | | [place] [address] | | | | + + + + + + + + | Specimen | + + | Blood specimen | | (specimen) | + + + +---------+ + + | Performing | Address | City/State/Zipcode | Phone Number | | Organization | | | | + +---------+ + + | EXTERNAL LAB | | | | + +---------+ + + Phosphorus (07/17/2018 5:16 AM PST) + + + + + + | Component | Value | Ref Range | Performed | Pathologist | | | | | At | Signature | + + + + + + | PHOSPHORUS | 2.4Comment: Testing | 2.3 - 4.8 mg/dL | EXTERNAL | | | | performed at [facility], [address] | | LAB | | | | [place], | | | | | | [place] [address] | | | | + + + + + + + + | Specimen | + + | Blood specimen | | (specimen) | + + + +---------+ + + | Performing | Address | City/State/Zipcode | Phone Number | | Organization | | | | + +---------+ + + | EXTERNAL LAB | | | | + +---------+ + + Magnesium (07/17/2018 5:16 AM PST) + + + + + + | Component | Value | Ref Range | Performed | Pathologist | | | | | At | Signature | + + + + + + | Magnesium | 2.0Comment: Testing | 1.7 - 2.4 mg/dL | EXTERNAL | | | | performed at [facility], [address] | | LAB | | | | [address], | | | | | | [place] [address] | | | | + + + + + + + + | Specimen | + + | Blood specimen | | (specimen) | + + + +---------+ + + | Performing | Address | City/State/Zipcode | Phone Number | | Organization | | | | + +---------+ + + | EXTERNAL LAB | | | | + +---------+ + + Hemoglobin A1C (07/17/2018 5:16 AM PST) + + + + + + | Component | Value | Ref Range | Performed | Pathologist | | | | | At | Signature | + + + + + + | Hemoglobin | 5.4Comment: The [facility] | 4.0 - 6.0 % | EXTERNAL | | | A1c | Diabetes Association | | LAB | | | | considers a hemoglobin | | | | | | A1c result of <7.0% to | | | | | | be the goal of diabetic | | | | | | therapy. When results | | | | | | are consistently >8.0%, | | | | | | the ADA suggests | | | | | | reevaluation of the | | | | | | treatment regimen. The | | | | | | testing method used is | | | | | | certified traceable to | | | | | | the Diabetes Control and | | | | | | Complications Trial | | | | | | reference method. | | | | + + + + + + | Glycohemogl | 108Comment: The ADA | mg/dL | EXTERNAL | | | obin | considers an eAG result | | LAB | | | (GHb),Total | of LT 154 mg/dL to be | | | | | | the goal of diabetic | | | | | | therapy. Estimated | | | | | | Average Glucose | | | | | | calculated from | | | | | | hemoglobin A1c by use of | | | | | | the ADA recommended | | | | | | formula.Testing | | | | | | performed at [facility], [address] | | | | | | [facility], | | | | | | [place] [address] | | | | + + + + + + + + | Specimen | + + | Blood specimen | | (specimen) | + + + +---------+ + + | Performing | Address | City/State/Zipcode | Phone Number | | Organization | | | | + +---------+ + + | EXTERNAL LAB | | | | + +---------+ + + Comprehensive Metabolic Panel (07/17/2018 5:16 AM PST) + + + + + + | Component | Value | Ref Range | Performed | Pathologist | | | | | At | Signature | + + + + + + | Na | 141 | 135 - 145 | EXTERNAL | | | | | mmol/L | LAB | | + + + + + + | K | 3.3 (L) | 3.5 - 4.9 | EXTERNAL | | | | | mmol/L | LAB | | + + + + + + | Cl | 107 | 99 - 109 mmol/L | EXTERNAL | | | | | | LAB | | + + + + + + | CO2 | 23 | 23 - 32 mmol/L | EXTERNAL | | | | | | LAB | | + + + + + + | Anion Gap | 14 | 5 - 20 mmol/L | EXTERNAL | | | | | | LAB | | + + + + + + | Glucose, | 95 | 65 - 99 mg/dL | EXTERNAL | | | Fasting | | | LAB | | + + + + + + | BUN | 11 | 8 - 25 mg/dL | EXTERNAL | | | | | | LAB | | + + + + + + | Creatinine | 0.8 | 0.70 - 1.30 | EXTERNAL | | | | | mg/dL | LAB | | + + + + + + | BUN/Creatin | 14 | | EXTERNAL | | | ine Ratio | | | LAB | | + + + + + + | Calcium | 8.6 | 8.5 - 10.5 | EXTERNAL | | | | | mg/dL | LAB | | + + + + + + | Protein, | 7.2 | 6.3 - 8.2 g/dL | EXTERNAL | | | Total | | | LAB | | + + + + + + | Albumin | 3.4 | 3.3 - 4.8 g/dL | EXTERNAL | | | | | | LAB | | + + + + + + | Globulin | 3.8 | 1.3 - 4.9 g/dL | EXTERNAL | | | | | | LAB | | + + + + + + | A/G Ratio | 0.9 (L) | 1.0 - 2.4 | EXTERNAL | | | | | | LAB | | + + + + + + | Bilirubin | 1.3 | 0.1 - 1.5 mg/dL | EXTERNAL | | | Total | | | LAB | | + + + + + + | ALP, | 103 | 35 - 115 U/L | EXTERNAL | | | External | | | LAB | | + + + + + + | AST | 17 | 10 - 45 U/L | EXTERNAL | | | | | | LAB | | + + + + + + | ALT | 20 | 10 - 65 U/L | EXTERNAL | | | | | | LAB | | + + + + + + | Estimated | >60Comment: GFR <60: | mL/min/1.73m2 | EXTERNAL | | | GFR | CHRONIC KIDNEY DISEASE, | | LAB | | | | IF FOUND OVER A 3 MONTH | | | | | | PERIOD.GFR <15: KIDNEY | | | | | | FAILURE.FOR | | | | | | AMERICANS, MULTIPLY THE | | | | | | CALCULATED GFR BY | | | | | | 1.210.This eGFR is | | | | | | calculated using the | | | | | | MDRD IDMS traceable | | | | | | equation.Testing | | | | | | performed at [facility], [address] | | | | | | [facility] [place], | | | | | | [place] [address] | | | | + + + + + + + + | Specimen | + + | Blood specimen | | (specimen) | + + + +---------+ + + | Performing | Address | City/State/Zipcode | Phone Number | | Organization | | | | + +---------+ + + | EXTERNAL LAB | | | | + +---------+ + + CT Head wo Contrast (07/16/2018 8:51 AM PST) + + | Specimen | + + | | + + + + + | Narrative | Performed At | + + + | This is a non-reportable procedure without a radiologist report and | | | is used for image storage only | | + + + + + | Procedure Note | + + | Vasile Montes Conversion - 03/18/2019 12:18 PM PDT This is a non-reportable procedure | | without a radiologist report and isused for image storage only | + + CT Angiogram Head and Neck w Contrast (07/16/2018 8:51 AM PST) + + | Specimen | + + | | + + + + + | Narrative | Performed At | + + + | This is a non-reportable procedure without a radiologist report and | | | is used for image storage only | | + + + + + | Procedure Note | + + | Simon, Rad Conversion - 03/18/2019 12:18 PM PDT This is a non-reportable procedure | | without a radiologist report and isused for image storage only | + + XR Chest 1 Vw (07/16/2018 4:47 AM PST) + + | Specimen | + + | | + + + + + | Narrative | Performed At | + + + | This is a non-reportable procedure without a radiologist report and | | | is used for image storage only | | + + + + + | Procedure Note | + + | Vasile Montes - 03/18/2019 12:18 PM PDT This is a non-reportable procedure | | without a radiologist report and isused for image storage only | + + MRI Brain wo Contrast (07/16/2018 3:48 AM PST) + + | Specimen | + + | | + + + + + | Narrative | Performed At | + + + | This is a non-reportable procedure without a radiologist report and | | | is used for image storage only | | + + + + + | Procedure Note | + + | Vasile Montes Monie - 03/18/2019 12:18 PM PDT This is a non-reportable procedure | | without a radiologist report and isused for image storage only | + + documented in this encounter Visit Diagnoses + + | Diagnosis | + + | Hx of seizure disorder Personal history of other disorders of nervous system and | | sense organs | + + | Driving safety issue Other specified personal history presenting hazards to health | + + | Pain Generalized pain | + + | Essential hypertension Unspecified essential hypertension | + + | Weakness generalized Other malaise and fatigue | + + documented in this encounter
--- OUTSIDE RECORDS SUMMARY | ~2020-02-08 | XMS | Encounter Summary ---
Demographics + + + | Address | [address] | | | [place] [address] | + + + | Home Phone | | + + + | Preferred Language | Unknown | + + + | Marital Status | Single | + + + | Pentecostalism Affiliation | Unknown | + + + | Race | Unknown | + + + | Ethnic Group | Other Race | + + + Author + + + | Author | [facility] | + + + | Organization | [facility] | + + + | Address | Unknown | + + + | Phone | Unavailable | + + + Care Team Providers + +------+ + | Care Underlay Stitcher Name | Role | Phone | + +------+ + PCP | Unavailable | + +------+ + Encounter Details +--------+ + + + + | Date | Type | Department | Care Team | Description | +--------+ + + + + | 05/ | Outside | Neurophysiology | Paolo Pringle | | | 2009 | Referral | EEG at [facility] [address] | [address] | | | | Order | [address] | [address] | | | | | [facility] | [place] [address] | | | | | [address] | [phone] | | | | | [place], [place] | | | | | | [address] | | | | | | [phone] | | | +--------+ + + + [...] as of this encounter Plan of Treatment + + +--------+ + + | Name | Type | Priori | Associated Diagnoses | Date/Time | | | | ty | | | + + +--------+ + + | EEG ROUTINE | Procedures | Routin | Other convulsions | 12/05/2009 | | | | e | | | + + +--------+ + + documented as of this encounter Visit Diagnoses + + | Diagnosis | + + | Other convulsions - Primary | + + documented in this encounter"
--- OUTSIDE RECORDS SUMMARY | ~2020-02-08 | XMS | Clinical Summary ---
Demographics + + + | Address | [address] | | | [place] [address] | + + + | Home Phone | | + + + | Preferred Language | Unknown | + + + | Marital Status | Single | + + + | Islam Affiliation | Unknown | + + + | Race | Unknown | + + + | Ethnic Group | Other Race | + + + Author + + + | Author | [facility] REVENUE LOCATIONS | + + + | Organization | NON REVENUE LOCATIONS | + + + | Address | Unknown | + + + | Phone | Unavailable | + + + Care Team Providers + +------+ + | Care Blasting Clay Miner Name | Role | Phone | + +------+ + PCP | Unavailable | + +------+ + Source Comments JOVANI is fully live on both [facility] and [facility] Allergies Not on File Medications Not on file Active Problems Not on file Social History + +-------+ +--------+------+ | Tobacco [...] recent travel history available. | + + Last Filed Vital Signs Not on file Plan of Treatment + + + + + | Health Maintenance | Due Date | Last Done | Comments | + + + + + | Pneumococcal | | | | | vaccination (1 of 2 | 2 | | | | - PCV13) | | | | + + + + + | Influenza (Flu) | | | | | vaccination (#1) | 9 | | | + + + + + Results Not on filefrom Last 3 Months Insurance + +--------+ +--------+ + +--------+ | Payer | Benefi | Subscriber | Effect | Phone | Address | Type | | | t Plan | ID | edna | | | | | | / | | Dates | | | | | | Group | | | | | | + +--------+ +--------+ + +--------+ | MEDICARE | MEDICA | xxxxxxxxxx | Effect | [phone] | [address] | Medica | | | RE A & | | edna | [address] | [id number] | re | | | B | | for | | [place], [place] | | | | | | all | | [address] | | | | | | dates | | | | + +--------+ +--------+ + +--------+ | | TRICAR | xxxxxxxxx | Effect | [phone] | | Indemn | | | E 4 | | edna | 8 | | ity | | | LIFE | | for | | | | | | | | all | | | | | | | | dates | | | | + +--------+ +--------+ + +--------+ + +--------+ +--------+ + + | Guarantor Name | Accoun | Relation to | Date | Phone | Billing Address | | | t Type | Patient | of | | | | | | | | | | + +--------+ +--------+ + + | Mandeep Diop | Person | Self [birth year] | [address] | | | [place] | | 1936 | [phone] | [place] | | | [place] | | | [address] (Home) | [address] | + +--------+ +--------+ + +"
--- OUTSIDE RECORDS SUMMARY | ~2020-02-08 | XMS | Encounter Summary ---
Demographics + + + | Address | [address] | | | [place] [address] | + + + | Home Phone | | + + + | Preferred Language | Unknown | + + + | Marital Status | Single | + + + | Baptist Affiliation | Unknown | + + + | Race | Unknown | + + + | Ethnic Group | Other Race | + + + Author + + + | Author | [facility] | + + + | Organization | [facility] | + + + | Address | Unknown | + + + | Phone | Unavailable | + + + Care Team Providers + +------+ + | Care Environmental Issues Instructor Name | Role | Phone | + +------+ + PCP | Unavailable | + +------+ + Encounter Details +--------+ + + + + | Date | Type | Department | Care Team | Description | +--------+ + + + + | 11/25/ | Documentati | Dermatology | Unknown . | | | 2016 | on | Medical at [facility] [address] | | | | | | [address] | | | | | | Mailcode: [address] | | | | | | [facility] | | | | | | and Healing, | | | | | | Building | | | | | | Floor [place], [place] | | | | | | [address] | | | | | | [phone] | | | +--------+ + + + [...]
--- OUTSIDE RECORDS SUMMARY | ~2020-02-08 | XMS | Encounter Summary ---
Demographics + + + | Address | [address] | | | [place] [address] | + + + | Home Phone | | + + + | Preferred Language | Unknown | + + + | Marital Status | | + + + | Taoist Affiliation | Unknown | + + + | Race | Unknown | + + + | Ethnic Group | Unknown | + + + Author + + + | Author | [facility] | | | and [place] | + + + | Organization | [facility] | | | [...] Team Providers + +------+ + | Care Special Education Professional Name | Role | Phone | + +------+ + | Paolo Pringle MD | PCP | | + +------+ + Encounter Details +--------+ + + + + | Date | Type | Department | Care Team | Description | +--------+ + + + + | 01/22/ | Hospital | [facility] | Alonso, | Chronic left | | 2016 | Encounter | MED CTR XRAY [address] | [address]ANICE Nevarez [address] | shoulder pain | | | | [place] | GURJIT FERREIRA, [address] | | | | | [place] [address] | [place] [address] | | | | | [phone] | [phone] | | | | | | | [...] + +--------+ + + + | XR SHOULDER LEFT 2 + | Routin | 01/23/2016 | Chronic left | Results for this | | VW | e | 1:45 PM | shoulder pain | procedure are in the | | | | PDT | | results section. | + +--------+ + + + documented in this encounter Results XR Shoulder Left 2 + Vw (01/23/2016 1:45 PM PDT) + + | Specimen | + + | | + + + + + | Narrative | Performed At | + + + | XR SHOULDER LEFT 2 + VW 01/23/2016 1:45 PM HISTORY: left shoulder | [facility] | | pain, possible OA. COMPARISON: None. FINDINGS: There are no | [facility] | | acute osseous findings. There are mild degenerative changes of the [facility] | | joint with hypertrophy. Mild degenerative changes are noted of the | - IMAGING | | glenohumeral joint with osteophytosis. Bone mineralization is normal. | | | Soft tissue structures are unremarkable. Visualized chest shows no | | | acute findings. IMPRESSION - Mild degenerative changes. | | | Dictated and Signed by: Johnson Benites MD Electronically signed: | | | 01/23/2016 4:47 PM | | + + + + + | Procedure Note | + + | Simon, Rad Results In - 01/23/2016 4:50 PM PDT XR SHOULDER LEFT 2 + VW 01/23/2016 1:45 | | PMHISTORY: left shoulder pain, possible OA.COMPARISON: None.FINDINGS:There are no acute | | osseous findings. There are mild degenerative changes of theAC joint with hypertrophy. | | Mild degenerative changes are noted of theglenohumeral joint with osteophytosis. Bone | | mineralization is normal. Softtissue structures are unremarkable. Visualized chest shows | | no acute findings.IMPRESSION -Mild degenerative changes.Dictated and Signed by: Johnson | | MD Kamari Electronically signed: 01/23/2016 4:47 PM | |There are no acute osseous findings. There are mild degenerative changes of the | |AC joint with hypertrophy. Mild degenerative changes are noted of the | |glenohumeral joint with osteophytosis. Bone mineralization is normal. Soft | |tissue structures are unremarkable. Visualized chest shows no acute findings. | | | |IMPRESSION - | |Mild degenerative changes. | | | |Dictated and Signed by: Johnson Benites MD | | Electronically signed: 01/23/2016 4:47 PM | + + + + + + + | Performing | Address | City/State/Zipcode | Phone Number | | Organization | | | | + + + + + | [facility] | [address] | [place] | [phone] | | [facility] | | [address] | | | - IMAGING | | | | + + + + + documented in this encounter Visit Diagnoses + + | Diagnosis | + + | Chronic left shoulder pain Pain in joint, shoulder region | + + documented in this encounter"
--- OUTSIDE RECORDS SUMMARY | ~2020-02-08 | XMS | Encounter Summary ---
Demographics + + + | Address | [address] | | | [place] [address] | + + + | Home Phone | | + + + | Preferred Language | Unknown | + + + | Marital Status | | + + + | Anabaptism Affiliation | Unknown | + + + | Race | Unknown | + + + | Ethnic Group | Unknown | + + + Author + + + | Author | [facility] | | | and [place] | + + + | Organization | [facility] | | | [...] Team Providers + +------+ + | Care Job Press Operator Name | Role | Phone | + +------+ + | Paolo Pringle MD | PCP | | + +------+ + Encounter Details +--------+ + + + + | Date | Type | Department | Care Team | Description | +--------+ + + + + | 10/12/ | Anesthesia | [facility] | Shiv Lyles MD | | | 2017 | Event | [facility] | [address] | | | | | [address] | [place] | | | | | [place], [place] | [address] | | | | | [address] | | | | | | [phone] | | | +--------+ + + + + Anesthesia Record + + + + + | Procedure Name | Responsible | Anesthesia Start | Anesthesia Stop Time | | | Anesthesiologist | Time | | + + + + + | Cyber Laser Prostate | Shiv Lyles MD | 10/12/16 0943 | 10/12/16 1121 | | Vaporization (N/A | | | | | Bladder) | | | | + + + + + +----+---+ + + | Da | T | Event | Comment | | te | i | | | | | m | | | | | e | | | +----+---+ + + | 03 | 0 | | | | /1 | 9 | | | | 0/ | 3 | | | | 20 | 6 | | | | 17 | | | | +----+---+ + + | | 0 | An Checkout | Pre-use anesthesia machine/equipment checkout. | | | 9 | | | | | 4 | | | | | 3 | | | +----+---+ + + | | 0 | An Start | Reassessment prior to anesthesia induction/procedure. | | | 9 | | | | | 4 | | | | | 3 | | | +----+---+ + + | | 0 | AN | Per surgeon request | | | 9 | Antibiotic | | | | 4 | declined | | | | 3 | | | +----+---+ + + | | 0 | Preoxygenat | | | | 9 | ed | | | | 4 | | | | | 3 | | | +----+---+ + + | | 0 | An | | | | 9 | Induction | | | | 4 | | | | | 5 | | | +----+---+ + + | | 0 | An | | | | 9 | Intubation | | | | 4 | | | | | 7 | | | +----+---+ + + | | 0 | [place] | | | | 9 | 43-degrees | | | | 5 | | | | | 2 | | | +----+---+ + + | | 0 | First | | | | 9 | Inc/Proc St | | | | 5 | | | | | 5 | | | +----+---+ + + | | 1 | [place] off | | | | 1 | | | | | 1 | | | | | 5 | | | +----+---+ + + | | 1 | Breathing | | | | 1 | Spontaneous | | | | 1 | ly | | | | 5 | | | +----+---+ + + | | 1 | Oropharynx | | | | 1 | Suctioned | | | | 1 | | | | | 5 | | | +----+---+ + + | | 1 | Extubated | | | | 1 | Deep | | | | 1 | | | | | 5 | | | +----+---+ + + | | 1 | an stop | | | | 1 | data | | | | 1 | | | | | 7 | | | +----+---+ + + | | 1 | An Stop | Patient handed off to recovery nurse. | | | 2 | | | | | 1 | | | +----+---+ + + +------+ | Meds | +------+ + +---------+ | Name | Total | + +---------+ | lidocaine 2% | 30 mg | + +---------+ | propofol (DIPRIVAN) injection | 150 mg | | (bolus) (20 mL) | | + +---------+ | ondansetron | 4 mg | + +---------+ | dexamethasone | 10 mg | + +---------+ | fentaNYL injection (2 mL) | 100 mcg | + +---------+ | lactated ringers (LR) infusion | 800 mL | + +---------+ + + | Name | + + | N2O Flow Rate (L/Min) | + + | O2 Flow Rate (L/Min) | + + | Insp O2 | + + | Exp VENKAT | + + | Air Flow Rate (L/Min) | + + + + | No blood administrations on file. | + + +--------+ + + + | Type | Details | Placement | Removal | +--------+ + + + | Periph | 10/12/16; 0808; Right; Distal; | 10/12/16 0808 by | 10/12/16 1500 by | | eral | Forearm; 20 gauge; 0; | Corina Junior RN | Quita De Jesus RN | | IV | distraction, intradermal | | | | | injection; no longer indicated; | | | | | short term use; 10/12/16; 1500 | | | +--------+ + + + | Airway | Placement Date: 10/12/16; | 10/12/16 0947 by | 10/12/16 1115 by | | | Placement Time: 946; Airway | Shiv Lyles MD | Shiv Lyles MD | | | Type: oral, cuffed, laryngeal | | | | | mask, non-disposable; Size: 4; | | | | | Trauma: none; Placement Check: | | | | | exhaled CO2 detection device; | | | | | Removal Date: 10/12/16; Removal | | | | | Time: 1115 | | | +--------+ + + + | Read | 10/12/16; 0955; penis; 10/28/18 | 10/12/16 0955 by | 10/28/18 1342 by | | only - | (Completed/Removed by Utility); | Christian Marte RN | User Epic | | | 1342 (Completed/Removed by | | | | [employer]isi | Utility) | | | | on | | | | +--------+ + + + documented in this encounter Social History + +-------+ +--------+ + | [...] + + documented as of this encounter OR Notes Anesthesia Postprocedure Evaluation - Shiv Lyles MD - 10/12/2016 11:31 AM PST ANESTHESIA POSTANESTHESIA EVALUATION Mandeep Diop 80 y.o. male 1935 [id number] Procedure(s) Cyber Laser Prostate Vaporization (N/A Bladder) Cooperates? Yes Mental Status Performs simple tasks. Respiratory Satisfactory - Airway patent (self maintained). Cardiovascular Satisfactory Blood pressure and heart rate acceptable Temperature Satisfactory Pain Satisfactory N/V Control Satisfactory Hydration Satisfactory No signs of dehydration Complications None apparent Filed Vitals: 10/12/16 0744 10/12/16 1120 10/12/16 1125 BP: 144/68 133/74 133/92 Pulse: 81 69 79 Temp: 36.6 C (97.9 F) 36.9 C (98.4 F) Resp: 18 14 22 SpO2: 95% 97% 94% Electronically signed by Shiv Lyles MD 10/12/2016 11:31 [facility] nesthesia Preprocedure Evaluation - Shiv Lyles MD - 10/12/2016 8:18 AM PSTFormatting of this note might be di fferent from the original. ANESTHESIA PREANESTHESIA EVALUATION Mandeep Diop 80 y.o. male 1935 [id number] Procedure(s): Cyber Laser Prostate Vaporization (N/A Bladder) Medical history, anesthesia, medications, allergy, NPO status verified histories reviewed. ECG reviewed. Labs reviewed. Review of Systems / Med History Anesthesia History No anesthesia complications. Past Medical History: Lumbar radiculopathy COPD (chronic obstructive pulmonary disease) (* Epilepsy (HCC) Recurrent seizures (HCC) Essential hypertension Hyperlipidemia Thrombocytopenia (HCC) BPH (benign prostatic hyperplasia) CAD (coronary artery disease) Brachial plexus injury, right Liver cyst Complex partial seizure disorder (HCC) Comment:epilespy Arthritis of multiple sites Patellofemoral syndrome of left knee DDD (degenerative disc disease), lumbar 12/08/2015 Foraminal stenosis of lumbar region 12/08/2015 Bilateral lumbar radiculopathy 12/08/2015 Chronic left shoulder pain 12/08/2015 Acute pain of both knees 01/23/2016 Benign prostatic hypertrophy with urinary rete* Actinic keratosis Basal cell carcinoma Benign paroxysmal vertigo COPD with emphysema (HCC) Hyperlipidemia Osteoarthritis of left knee Thrombocytopenia (HCC) DELFINA (obstructive sleep apnea) Comment:uses CPAP Adverse effect of anesthesia Comment:slow to wake. Cardiovascular (+) hypertension , Exercise tolerance >4 METS Pulmonary (+) sleep apnea: known Neurology (+) seizures Gastrointestinal/Hepatic (+) hyperlipidemia Other (+) thrombocytopenia Physical Exam Airway MP I, TM >3 FB, Mouth opening >2 FB. Neck: full ROM, extends >30 degrees. Jaw protrusi on normal. Dental Grossly normal except where noted below.; CV Rhythm regular. Rate normal. (-) murmur. Pulm Clear to auscultation bilaterally. Neuro Grossly normal. Anesthesia Plan ASA 2 Type: General. Induction: Intravenous. Potential problems: None anticipated. Monitors: Standard ASA monitors. Consent statement:Anesthetic plan, alternatives, risks and benefits discussed with patient. Risks discussed included (but were not limited to): nausea, pain, . Consenting person understands and agrees to proceed. Electronically Signed by: Shiv Lyles MD ESig date/time: 10/12/2016 9:27 documented in this enco unter Plan of Treatment Not on filedocumented as of this encounter Visit Diagnoses Not on filedocumented in this encounter Administered Medications + +--------+ +-------+------+------+ | Medication Order | MAR | Action | Dose | Rate | Site | | | Action | Date | | | | + +--------+ +-------+------+------+ | dexamethasone (DECADRON) 10 | Given | 10/13/19 | 10 mg | | | | mg/mL injection Intravenous, | | 17 9:54 | | | | | PRN, Starting 10/12/16 at | | AM PST | | | | | 0954, Anesthesia Intra-op | | | | | | + +--------+ +-------+------+------+ +---+---+ | | | +---+---+ + +-------+ +--------+---+---+ | fentaNYL (PF) injection | Given | 10/13/19 | 25 mcg | | | | Intravenous, PRN, Pain, Starting | | 17 10:36 | | | | | 10/12/16 at 0952, Anesthesia | | AM PST | | | | | Intra-op | | | | | | + +-------+ +--------+---+---+ +-------+ +--------+---+---+ | Given | 10/13/19 | 25 mcg | | | | | 17 10:09 | | | | | | AM PST | | | | +-------+ +--------+---+---+ | Given | 10/13/19 | 50 mcg | | | | | 17 9:52 | | | | | | AM PST | | | | +-------+ +--------+---+---+ +---+---+ | | | +---+---+ + +---------+ +---+---+---+ | lactated ringers (LR) infusion | New Bag | 10/13/19 | | | | | at 100 mL/hr, Intravenous, | | 17 9:42 | | | | | CONTINUOUS, Starting 10/12/17 | | AM PST | | | | | at 0815, Pre-op | | | | | | + +---------+ +---+---+---+ +---------+ +---+-------+---+ | New Bag | 10/13/19 | | 100 | | | | 17 8:09 | | mL/hr | | | | AM PST | | | | +---------+ +---+-------+---+ +---+---+ | | | +---+---+ + +-------+ +-------+---+---+ | lidocaine (PF) 2% injection | Given | 10/13/19 | 30 mg | | | | Intravenous, PRN, Starting Sat | | 17 9:45 | | | | | 10/12/16 at 0945, Anesthesia | | AM PST | | | | | Intra-op | | | | | | + +-------+ +-------+---+---+ +---+---+ | | | +---+---+ + +-------+ +------+---+---+ | ondansetron (ZOFRAN) injection | Given | 10/13/19 | 4 mg | | | | Intravenous, PRN, Nausea, | | 17 9:54 | | | | | Vomiting, Starting 10/12/16 at | | AM PST | | | | | 0954, Anesthesia Intra-op | | | | | | + +-------+ +------+---+---+ +---+---+ | | | +---+---+ + +-------+ +--------+---+---+ | propofol (DIPRIVAN) injection | Given | 10/13/19 | 150 mg | | | | Intravenous, PRN, Starting Fri | | 17 9:45 | | | | | 10/12/16 at 0945, Anesthesia | | AM PST | | | | | Intra-op | | | | | | + +-------+ +--------+---+---+ +---+---+ | | | +---+---+ documented in this encounter"
--- OUTSIDE RECORDS SUMMARY | ~2020-02-08 | XMS | Encounter Summary ---
Demographics + + + | Address | [address] | | | [place] [address] | + + + | Home Phone | | + + + | Preferred Language | Unknown | + + + | Marital Status | Single | + + + | Mandaen Affiliation | Unknown | + + + | Race | Unknown | + + + | Ethnic Group | Other Race | + + + Author + + + | Author | [facility] | + + + | Organization | [facility] | + + + | Address | Unknown | + + + | Phone | Unavailable | + + + Care Team Providers + +------+ + | Care Beater And Pulper Feeder Name | Role | Phone | + +------+ + PCP | Unavailable | + +------+ + Encounter Details +--------+ + + + + | Date | Type | Department | Care Team | Description | +--------+ + + + + | 07/16/ | Hospital | Dermatopathology | | | | 2016 | Encounter | [address] | | | | | | Mailcode: [id number] | | | | | | [facility] | | | | | | and Healing, | | | | | | [address], [address] | | | | | | Floor [place], [place] | | | | | | [address] | | | | | | [phone] | | | +--------+ + + + [...] | + +--------+ + + + | DERM PATHOLOGY | Routin | 07/16/2016 | Basal cell | Results for this | | | e | | carcinoma of skin of | procedure are in the | | | | | left upper limb, | results section. | | | | | including shoulder | | | | | | Basal cell carcinoma | | | | | | of skin of nose | | | | | | Actinic keratosis | | + +--------+ + + + documented in this encounter Results DERM PATHOLOGY (07/16/2016) + + + + + + | Component | Value | Ref Range | Performed | Pathologist | | | | | At | Signature | + + + + + + | DERMATOPATH | SOURCE OF SPECIMEN:A Lt. | | [facility] | | | OLOGY(WET | shoulder, shave biopsy | | DERMATOPATH | | | MNT) | ED&CSOURCE OF SPECIMEN:B | | OLOGY | | | | Rt. nasal ala, shave | | | | | | biopsySOURCE OF | | | | | | SPECIMEN:C Rt. | | | | | | preauricular, shave | | | | | | biopsy CLINICAL | | | | | | DESCRIPTION:A: 13 x 9 | | | | | | hyperpigmented pearly | | | | | | plaque; r/o BCC.B: 4 x 4 | | | | | | pearly papule; r/o | | | | | | BCC.C: 4 x 3 pink | | | | | | papule; r/o NMSC. | | | | | | GROSS | | | | | | DESCRIPTION:Received in | | | | | | formalin are three | | | | | | specimens labeled | | | | | | Mandeep Diop:A: Specimen | | | | | | is labeled "A | | | | | | | | | | | | L shoulder" and | | | | | | consists of an irregular | | | | | | shaveof papular patchy | | | | | | noui-azr-ketda skin, | | | | | | [id number]. The surgical | | | | | | margin isinked black; | | | | | | the tissue is bisected, | | | | | | and entirely submitted | | | | | | in cassette A1.B: | | | | | | Specimen is labeled "B | | | | | | | | | | | | | | | | | | R nasal ala" and | | | | | | consists of an irregular | | | | | | shaveof papular | | | | | | wdfcp-plj-ekkxk skin, | | | | | | [id number]. The surgical | | | | | | margin is inkedblack; | | | | | | the tissue is bisected, | | | | | | and entirely submitted | | | | | | in cassette B1.C: | | | | | | Specimen is labeled "C | | | | | | | | | | | | | | | | | | R preauricular" and | | | | | | consists of an | | | | | | irregularshave of | | | | | | papular tnguo-cks-alc | | | | | | skin, [id number]. The | | | | | | surgical margin is | | | | | | inkedblack; the tissue | | | | | | is bisected, and | | | | | | entirely submitted in | | | | | | cassette C1. | | | | | | MICROSCOPIC | | | | | | DESCRIPTION:In the A | | | | | | specimen there are | | | | | | aggregates of cells with | | | | | | hyperchromatic | | | | | | nuclei,scant cytoplasm | | | | | | containing pigment and | | | | | | palisading of the | | | | | | peripheral nuclei. | | | | | | In the B specimen there | | | | | | are aggregates of cells | | | | | | with hyperchromatic | | | | | | nuclei,scant cytoplasm | | | | | | and palisading of the | | | | | | peripheral nuclei. | | | | | | In the C specimen | | | | | | emanating from the | | | | | | undersurface of the | | | | | | epidermis are budsof | | | | | | cells with large, | | | | | | hyperchromatic, | | | | | | pleomorphic nuclei and | | | | | | scanteosinophilic | | | | | | cytoplasm, which spare | | | | | | the adnexal epithelium. | | | | | | DIAGNOSIS:A: BASAL | | | | | | CELL CARCINOMA, NODULAR | | | | | | AND PIGMENTED. B: | | | | | | BASAL CELL CARCINOMA, | | | | | | NODULAR. NOTE: The | | | | | | basal cell carcinoma | | | | | | extends to the specimen | | | | | | base. C: SOLAR | | | | | | KERATOSIS, HYPERPLASTIC | | | | | | TYPE. KPW: | | | | | | [id number]/16 My | | | | | | electronic signature | | | | | | indicates that I have | | | | | | personally reviewed | | | | | | alldiagnostic slides, | | | | | | the gross and/or | | | | | | microscopic portion of | | | | | | thisreport and | | | | | | formulated the final | | | | | | diagnosis. | | | | | | Rendering Diagnostician: | | | | | | De Garcia | | | | | | [place] | | | | | | [place] Signed 07/19/2016 | | | | | | 5:42PM | | | | + + + + + + + + | Specimen | + + | | + + + + + | Narrative | Performed At | + + + | | | + + + + + + + + | Performing | Address | City/State/Zipcode | Phone Number | | Organization | | | | + + + + + | [facility] | [id number] | [place] [address] | | | DERMATOPATHOLOGY | [address] | | | + + + + + documented in this encounter Visit Diagnoses + + | Diagnosis | + + | Basal cell carcinoma of skin of left upper limb, including shoulder Basal cell | | carcinoma of skin of upper limb, including shoulder | + + | Basal cell carcinoma of skin of nose Basal cell carcinoma of skin of other and | | unspecified parts of face | + + | Actinic keratosis | + + documented in this encounter
--- OUTSIDE RECORDS SUMMARY | ~2020-02-08 | XMS | Encounter Summary ---
Demographics + + + | Address | [address] | | | [place] [address] | + + + | Home Phone | | + + + | Preferred Language | Unknown | + + + | Marital Status | | + + + | Synagogue Affiliation | Unknown | + + + | Race | Unknown | + + + | Ethnic Group | Unknown | + + + Author + + + | Author | [facility] | | | and [place] | + + + | Organization | [facility] | | | and [place] | + + + | Address | Unknown | + + + | Phone | Unavailable | + + + Support + + +---------+ + | Name | Relationship | Address | Phone | + + +---------+ + | Juna M Diop | ECON | Unknown | | + + +---------+ + | Ammy Allyson | ECON | Unknown | | + + +---------+ + Care Team Providers + +------+ + | Care Jockey Agent Name | Role | Phone | + +------+ + | Paolo Pringle MD | PCP | | + +------+ + Reason for Visit + + + | Reason | Comments | + + + | Back Pain | low back pain radiating into L>R legs | + + + | Shoulder Pain | left shoulder | + + + Evaluate & Treat (Routine) +--------+--------+ + + + + | Status | Reason | Specialty | Diagnoses / | Referred By | Referred To | | | | | Procedures | Contact | Contact | +--------+--------+ + + + + | Closed | | Physical | Diagnoses | Pion, | Norma, | | | | Medicine and | Lumbar | Paolo | Solo Aguilar MD | | | | Rehabilitatio | radiculopath | MD Philippe | [address] | | | | n | y | [address] | [address] | | | | | | [place] | [place] | | | | | | [place], | [address] Phone: | | | | | | [place] [address] | [phone] | | | | | | Phone: | Fax: | | | | | | [phone] | [phone] | | | | | | Fax: | | | | | | | [phone] | | +--------+--------+ + + + + Encounter Details +--------+---------+ + + + | Date | Type | Department | Care Team | Description | +--------+---------+ + + + | 12/07/ | Office | [facility] | Alonso, | DDD (degenerative | | 2016 | Visit | PHYSIATRY [address] | [address] | disc disease), | | | | [address] | [address] | lumbar (Primary Dx); | | | | [place], [place] | [place] [address] | Foraminal stenosis | | | | [address] | [phone] | of lumbar region; | | | | [phone] | | Bilateral lumbar | | | | | | radiculopathy; | | | | | | Chronic left | | | | | | shoulder pain | +--------+---------+ + + + Social History [...] + + + | Blood Pressure | 121/71 | 12/08/2015 12:46 PM | | | | | PDT | | + + + + + | Pulse | 68 | 12/08/2015 12:46 PM | | | | | PDT | [...] + + + + | Weight | 74.8 kg (165 lb) | 12/08/2015 12:46 PM | | | | | PDT | | + + + + + | Height | 180.3 cm (5' 11") | 12/08/2015 12:46 PM | | | | | PDT | | + + + + + | Body Mass Index | 23.01 | 12/08/2015 12:46 PM | | | | | PDT | | + + + + + documented in this encounter Patient Instructions Patient Instructions Geri Gupta PA-C - 12/08/2015 1:13 PM PDT1) Epidural steroid injection with Dr. Green 2) Steroid injection of the left shoulder - Ice the area as needed 20 minutes per hour. Multiple times as needed over the next few d ays. - Watch for signs of infection (redness around injection site, swelling, fever) - No strenuous activity for 24-48 hours after the procedure. - Please call the office with questions or concerns. Degenerative Disc Disease (DDD): L4/L5 and L5/S1 Degenerative Disc Disease is a term used to describe normal wear and tear of the spine joao t occurs with age. The discs between the vertebras (bones) are made of fluid and cartilage that allows you to flex, bend, and twist, they also absorbs shock. Throughout the years, th fredi discs can become flattened and the space between your vertebras become closer together. This can cause disc herniation, spinal stenosis, and arthritis, along with other complicati ons. Foraminal Stenosis/Radicular Pain: L4/L5 and L5/S1 Foraminal stenosis is a narrowing of the spinal foramen, the hole through which passes a s frances nerve as it exits the spine. It is usually a form of degenerative spine disease which occurs slowly over time with wear and tear of the spinal column. Arthritic changes of the s pine, a herniated discs, soft tissue swelling and bony growth can all impinge on the formal foramen and compress the nerve. Because the narrowing (stenosis) of the foramen pinches a nerve, the primary symptoms relat ed to this disorder is directly related to that nerve which is affected. This obviously vari es depending on which foramina are involved. The pinched nerve can lead to basically two cl asses of symptoms. Symptoms include pain in the distribution of that nerve as well as numbne ss, tingling and or weakness can occur. Steroids are a very strong anti-inflammatory, this helps reduce pain by reducing swelling. Complications of steroids are bleeding, infection, and an increase of blood sugars if you are diabetic. ferry terminal agent risk can lead to osteoporosis which is why we limited the number of injections to 3 times per year. With an epidural injection, the nerve root that comes out of the spine and travels down your leg is targeted. The procedure is about 20 minutes long . You will lie on your back while x-rays are taken. Once the region is marked, it is numbe d and then injected with steroids. Follow-up at the hospital thirty minutes before your scheduled procedure to allow for time to check in. You may eat and drink as usual on the day of the procedure. If you are scheduled for an epidural injection do not take any blood thinning medications f or at least 5-7 days prior to your procedure unless you have been instructed by another phys ician not to discontinue blood thinning medications. If you are having a procedure other than an epidural injection (i.e. facet injection, media l branch block, SI joint injection or other joint injection) it is not absolutely necessary to discontinue blood thinning medications but doing so will decrease the risk of bruising or bleeding. If you have had a prior stroke, DVT or PE or if you are taking blood thinning medication be cause you have atrial fibrillation, a prosthetic cardiac valve replacement or heart stenting do not stop taking your blood thinning medications unless you have permission from your car diologist or primary care provider. All other medications should be taken as usual on the day of the procedure. Common blood thinning medications include: Aspirin (a baby aspirin is o.k.) Ibuprofen (Advil or Motrin) Naproxen (Aleve) Nabumetone (Relafen) Clopidogrel (Plavix) Dipyridamole/ASA (Aggrenox) Warfarin (Coumadin) Dabigatran (Pradaxa) Rivaroxaban (Xarelto) There are many others. If you have questions about your medications and whether or not you should stop any medications please contact our office. If you are having an epidural injection or if you take any medication for relaxation/sedati on on the day of the procedure you must provide a ambulance driver paramedic to take you home. For all procedur es it is recommended that someone else drive you home. documented in this encounter Progress Notes Geri Gupta PA-C - 12/08/2015 11:56 AM PDTFormatting of this note might be differe nt from the original. CHIEF COMPLAINT: Chief Complaint Patient presents with Back Pain low back pain radiating into L>R legs Shoulder Pain left shoulder HISTORY OF PRESENT ILLNESS: The patient is a 80 y.o. male being seen today for complaints of low back pain with radiation into the legs, left greater than right and left shoulder sandy n that began in August from no injury or onset. Since the symptoms began, he has noticed that symptoms have been chronic. He describes the pain as a aching, numbing and tingling feeling. He rates the pain as moderate. His symptoms worsen with standing, walking, changing position after being sedentary for a long time. His symptoms improve with sitting, taking a hot shower. He has leg symptoms on both sides, the legs are 75% of his pain, he describes the left leg symptoms following the L5 dermatome and the right leg symptoms following the L4 dermatome. The patient does describe numbness of the legs especially when sitting too long. He does not report weakness of the legs. He does not have bowel and bladder dysfunction. He does not have saddle anesthesia. He has left shoulder pain, worse with use of the arm, he cannot use his right arm from an o ld injury that gave him a arm, so he is compensating with the left shoulder. He likes to play golf and reports this makes the left shoulder worse. Treatments for these complaints have included physical therapy which he did in August, use of Meloxicam. Patient's medications, allergies, past medical, surgical, social and family histories were reviewed and updated as appropriate. PAST MEDICAL HISTORY: Past Medical History Diagnosis Date Lumbar radiculopathy COPD (chronic obstructive pulmonary disease) (HCC) Epilepsy (HCC) Recurrent seizures (HCC) Essential hypertension Hyperlipidemia DELFINA (obstructive sleep apnea) Thrombocytopenia (HCC) BPH (benign prostatic hyperplasia) CAD (coronary artery disease) Brachial plexus injury, right Liver cyst Complex partial seizure disorder (HCC) Arthritis of multiple sites Patellofemoral syndrome of left knee DDD (degenerative disc disease), lumbar 12/08/2015 Foraminal stenosis of lumbar region 12/08/2015 Bilateral lumbar radiculopathy 12/08/2015 Chronic left shoulder pain 12/08/2015 PAST SURGICAL HISTORY: Past Surgical History Procedure Laterality Date Upper gastrointestinal endoscopy 01/2002 normal CURRENT MEDICATIONS: Current Outpatient Prescriptions Medication Sig Dispense Refill albuterol-ipratropium (COMBIVENT RESPIMAT) 100-20 mcg/puff inhaler Inhale 1 puff into t he lungs 4 times daily. alfuzosin (UROXATRAL) 10 mg 24 hr tablet Take 10 mg by mouth Daily. amoxicillin (AMOXIL) 500 MG capsule Take 500 mg by mouth 3 times daily. ascorbic acid (VITAMIN C) 500 MG tablet Take 500 mg by mouth Daily. aspirin (ASPIRIN LOW DOSE) 81 MG tablet Take 81 mg by mouth Daily. atenolol (TENORMIN) 100 MG tablet Take 100 mg by mouth Daily. cyanocobalamin (VITAMIN B-12) 1000 MCG tablet Take 1,000 mcg by mouth Daily. ezetimibe (ZETIA) 10 mg tablet Take 10 mg by mouth Daily. finasteride (PROSCAR) 5 mg tablet Take 5 mg by mouth Daily. levetiracetam (KEPPRA) 750 MG tablet Take 2 by mouth twice a day. losartan (COZAAR) 50 mg tablet Take 50 mg by mouth Daily. meloxicam (MOBIC) 15 mg tablet Take 15 mg by mouth Daily. Misc Natural Products (GLUCOSAMINE CHONDROITIN ADV) TABS Take 1 tablet by mouth daily NIFEdipine (ADALAT CC) 30 mg 24 hr tablet Take 30 mg by mouth Daily. Psyllium (REGULOID PO) CAPS Take 1 tablet by mouth daily terbinafine (LAMISIL) 250 MG tablet Take 250 mg by mouth Daily. Thiamine HCl (B-1 PO) TABS Take one by mouth daily Vitamins-Lipotropics (LIPO-FLAVONOID PLUS) TABS Take by mouth. Current Facility-Administered Medications Medication Dose Route Frequency Provider Last Rate Last Dose triamcinolone acetonide (KENALOG-40) 40 mg/mL injection 40 mg 40 mg Intra-articular On aleksandr Gupta PA-C ALLERGIES: No Known Allergies SOCIAL HISTORY: The patient reports that he has quit smoking. He quit smokeless tobacco use about 43 years ago. He reports that he drinks alcohol. He reports that he does not use illicit drugs. FAMILY HISTORY: Family History Problem Relation Age of Onset Family history unknown: Yes REVIEW OF SYSTEMS: GENERALLY: No fever, chills, no night sweats, no weight gain, + weight loss, no anemia, n o fatigue. EYES: + eye problems, + impaired sight, + eye glasses/contacts, no eye injury, no double v ision, no transient blindness. EARS, NOSE, THROAT and MOUTH: No change in sense taste/smell, no hearing difficulty, + rin ging in ears, no drainage from ears, no ear injury, + dizziness, no voice change, no difficu lty swallowing,+ snoring, + sleep apnea/CPAP, no sinus trouble, + dental work. NEUROMUSCULAR: + numbness/pain of arms, + numbness/pain of legs, no awake with numbness/pa in, no weakness, no muscle aching, no coordination difficulty, no change in walk, no head in jury, no neck injury, no back injury, no pain in neck, no pain in back, no stroke, no fainti ng spells, no loss of consciousness, no tremor/shaking,+ seizures, no headaches, no migraine s, no memory loss, no speech difficulty, no confusion, no numbness of face. PSYCHIATRIC: No depression, no difficulty sleeping, no anxiety, no bipolar disorder. CARDIOVASCULAR/PULMONARY: No heart attack, no heart murmur, no fluttering heart, no shortn ess of breath, no cough, no Tuberculosis, no chest pain, no swelling ankles, no bloody cough ing, no asthma, + COPD/emphysema. GASTROINTESTINAL: No bowel disease, no nausea/vomiting, no rectal bleeding/hemorroids, + c onstipation, no fecal/stool incontinence, no liver/gallbladder disease, no abdominal pain. KIDNEY DISEASE: No frequent urination, no painful/difficult with urination, no urinary inco ntinence, no bladder problems, no impotence, no irregular period, no vaginal discharge. ENDOCRINE: No diabetes, no thyroid disease, no osteoporosis/osteopenia, no drainage from br easts. INTEGUMENTARY/SKIN: No lump in breasts, no skin disease or skin changes, no rash/itch. HEMATOLOGIC: No enlarged lymph nodes, no ease or unusual bleeding, no cancer. RHEUMATOLOGIC: + joint pain/arthritis, no Rheumatoid Arthritis PHYSICAL EXAMINATION: Filed Vitals: 12/08/15 1246 BP: 121/71 Pulse: 68 PainSc: 7 PainLoc: Back Body mass index is 23.02 kg/(m^2). GENERAL: The patient is well developed and well nourished. He does not appear uncomfortabl e when seated. HEENT: HEAD/FACE: EYES: EARS: NASOPHARNYX: OROPHARNYX: Normocephalic and atraumatic. There are no areas of recent trauma. Normal sclerae without icterus. No drainage or tenderness. Clear without drainage. Clear without erythema. SKIN Limited skin exam shows no significant rashes or lesions. There are not scars in the lumbar region. CHEST: The patient is in no acute respiratory distress with unlabored respirations. HEART: There is not lower extremity edema. ABDOMEN: The patient is not overweight. NEUROLOGIC: The patient is awake, alert, and oriented to time, place, person. He follows simple and complex commands. His speech is fluent. He comprehends speech well. He has no apparent deficits with short or buttermaker continuous churn memory. He has appropriate fund of knowledge Cranial nerves 2-12 appear grossly intact. Sensory exam does not show diminished sensation to light touch in the lower extremities. REFLEX: RIGHT LEFT PATELLAR 2+ 2+ ACHILLES 2+ 2+ MUSCULOSKELETAL There is no tenderness in the midline of the cervical or thoracic spine. T here is no major palpable deformity of the spine. Straight leg raise and slump-sit are positive on the left. Regan's maneuver and impingem ent testing were negative for any groin pain. There was no tenderness to palpation over th e greater trochanters or sacral sulci. The patient localized the majority of the pain to th e L5/S1 region and down the left leg L5 distribution and right leg L4 distribution region. Lumbar facet loading was negative. Strength testing showed 5/5 strength throughout the lowe r extremities. The patient was able to heel and toe walk without difficulty. There was no redness, effusion, warmth or joint line tenderness in the knees or ankles. Range of motion testing of the cervical spine was unremarkable. Spurling sign was negative. Shoulder examination shows well preserved range of motion with external rotation, internal rotation and abduction. Impingement testing was Positive. There was no tenderness over th e bicipital groove or over the AC joint. Speed's test was Negative. Empty can test was Nega tive. Strength testing, including strength testing of the infraspinatus, supraspinatus an d subscapularis, in bilateral upper extremities showed 5/5 strength with no focal weakness. RADIOGRAPHIC REVIEW: The patient's imaging was reviewed in detail with the patient today during the visit. Lumb ar MRI from 11/21/2015 shows lumbar DDD with disc space narrowing at L4/L5 and L5/S1, he has foraminal stenosis at this area, right greater than left, he has multi-level facet arthritis . There is no images of the shoulder to review. ASSESSMENT: 1. DDD (degenerative disc disease), lumbar 2. Foraminal stenosis of lumbar region 3. Bilateral lumbar radiculopathy 4. Chronic left shoulder pain PLAN: 1. The patient has had significant conservative care including medications (NSAIDS and narc otics), PT (multiple sessions over the years) and career technical counselor. Unfortunately he contin ues to have significant discomfort. It appears to me that the pain is primarily coming from the foraminal stenosis. I did feel that he would be a good candidate for interventional pr ocedures and I offered a right L4/L5 and left L5/S1 TFESI. 2. He is having left shoulder pain, most likely an overuse problem as the does not have us e of his right arm from a chronic injury. I offered him a subacromial steroid injection, he would like to do this today. Description of procedure: After the patient gave consent for the procedure the area for in jection was located by palpation and was marked. The area was then prepped with Betadine sw abs and alcohol. A 25 gauge 1 1/2 inch needle was then inserted into the joint subacromial space. Attempted aspiration showed no fluid in the needle hub. A combination of 1 mL of 40 mg/mL Kenalog and 2 mL each of 0.5% Bupivicaine and 1% Lidocaine was injected. The patient tolerated the procedure well and was instructed to ice the area for 15-20 minut es several times over the next few days and to watch for any signs of infection. 3. He may benefit from a neuropathic pain medicine like gabapentin in the future. 4. He will follow up two weeks after the steroid injection. ELECTRONICALLY SIGNED BY: Geri Gupta PA-C, 12/08/2015 CC: documented in t his encounter Plan of Treatment Not on filedocumented as of this encounter Results [facility]ALTER Lumbar Transforaminal (01/09/2016 1:10 PM PDT) + + | Specimen | + + | | + + + + + | Narrative | Performed At | + + + | 01/09/2016 Transforaminal Epidural Steroid Injections | [facility] | | Diagnosis: Lumbar radiculopathy ICD-10 Code M54.16 [facility] | [facility] | | Jadon presents to the fluoroscopy suite for fluoroscopically-guided [facility] | | right L4-L5 and right L5-S1 transforaminal epidural steroid | - IMAGING | | injections as part of conservative management for chronic pain with | | | lumbar radiculopathy and degenerative disk disease. After informed | | | consent was obtained, the patient lay in the prone position on the | | | fluoroscopy table. The areas were identified under fluoroscopic | | | guidance. The areas were prepped and draped in sterile fashion. A | | | 25-gauge, 1.5-inch needle was inserted into each region and | | | approximately 3 mL of buffered 1% lidocaine was infused. Then, a | | | 22-gauge spinal needle was inserted into the posterior superior | | | transforaminal space at each level and advanced into the epidural | | | space under fluoroscopic guidance. Confirmation into the epidural | | | space was obtained with infusion of approximately 1 mL of Omnipaque | | | contrast which showed epidural flow as well as nerve sheath flow. | | | Then, a combination of 2 mL of 1% lidocaine and 2 mL of 6 mg/mL | | | Celestone was infused, divided between the two levels. The patient | | | tolerated the procedure well without complications. Pre- and | | | post-procedure blood pressures were stable. The patient was given | | | verbal as well as written follow-up instructions. Prior to the | | | start of the procedure, the following were performed and/or | | | verified, including correct patient identity, correct site/side marked | | | and visible, agreement on the procedure to be done, correct patient | | | positioning and an accurate procedure consent form. Any safety | | | precautions based on clinical history and/or medication use have | | | been addressed. I personally performed the procedure above. | | | Estimated blood loss: Minimal Complications: None Findings: As | | | expected Anesthesia: Local 1% Lidocaine | | + + + + + + + + | Performing | Address | City/State/Zipcode | Phone Number | | Organization | | | | + + + + + | [facility] | [address] | [place] | [phone] | | [facility] | | [id number] | | | - IMAGING | | | | + + + + + documented in this encounter Visit Diagnoses + + | Diagnosis | + + | DDD (degenerative disc disease), lumbar - Primary Degeneration of lumbar or | | lumbosacral intervertebral disc | + + | Foraminal stenosis of lumbar region Spinal stenosis, lumbar region, without | | neurogenic claudication | + + | Bilateral lumbar radiculopathy | + + | Chronic left shoulder pain Pain in joint, shoulder region | + + documented in this encounter Administered Medications + + + +-------+------+------+ | Medication Order | MAR | Action | Dose | Rate | Site | | | Action | Date | | | | + + + +-------+------+------+ | triamcinolone acetonide | Given by | 12/08/19 | 40 mg | | | | (KENALOG-40) 40 mg/mL injection | Other | 16 1:36 | | | | | 40 mg 40 mg, Intra-articular, | | PM PDT | | | | | ONCE, [facility] 12/08/15 at 1330, For 1 | | | | | | | dose, Shake well. Not for IV | | | | | | | use., | | | | | | + + + +-------+------+------+ +---+---+ | | | +---+---+ documented in this encounter
--- OUTSIDE RECORDS SUMMARY | ~2020-02-08 | XMS | Encounter Summary ---
Demographics + + + | Address | [address] | | | [place] [address] | + + + | Home Phone | | + + + | Preferred Language | Unknown | + + + | Marital Status | | + + + | Protestant Affiliation | Unknown | + + + | Race | Unknown | + + + | Ethnic Group | Unknown | + + + Author + + + | Author | [facility] | | | and [place] | + + + | Organization | [facility] | | | [...] Team Providers + +------+ + | Care Ear Mold Laboratory Technician Name | Role | Phone | + +------+ + | Paolo Pringle MD | PCP | | + +------+ + Encounter Details +--------+ + + + + | Date | Type | Department | Care Team | Description | +--------+ + + + + | 12/14/ | Abstract | [facility] | Eugenie Sanchez, FACULTY SUPPORT COORDINATOR | | | 2015 | | PHYSIATRY [address] | | | | | | [address] | | | | | | [place] | | | | | | [address] | | | | | | [phone] | | | +--------+ + + + [...]
--- OUTSIDE RECORDS SUMMARY | ~2020-02-08 | XMS | Encounter Summary ---
Demographics + + + | Address | [address] | | | [place] [address] | + + + | Home Phone | | + + + | Preferred Language | Unknown | + + + | Marital Status | | + + + | Mormon Affiliation | Unknown | + + + | Race | Unknown | + + + | Ethnic Group | Unknown | + + + Author + + + | Author | [facility] | | | and [place] | + + + | Organization | [facility] | | | and [...] Team Providers + +------+ + | Care Wolf Hunter Name | Role | Phone | + +------+ + | Paolo Pringle MD | PCP | | + +------+ + Reason for Visit +--------+--------+ + | Reason | Onset | Comments | | | Date | | +--------+--------+ + | Other | 01/25/ | | | | 2015 | | +--------+--------+ + Encounter Details +--------+ + + + + | Date | Type | Department | Care Team | Description | +--------+ + + + + | 01/25/ | Telephone | [facility] | Victor Manueldaviagnes, | Other | | 2015 | | PHYSIATRY [address] | JANICE Nev[address] | | | | | [address] | [address] | | | | | [place], [place] | [place] [address] | | | | | [address] | [phone] | | | | | [phone] | | | +--------+ + + + [...] Telephone Encounter - Eugenie Sanchez CMA - 01/26/2016 2:37 PM PDTRelayed information. Patie nt states he would like information sent to his PCP and will follow up with him to discuss m edical management. Reports faxed. 2 :49 PM PDTTelephone Encounter - Eugenie Sanchez CMA - 01/26/2016 2:36 PM PDT----- Message arza Gupta PA-C sent at 01/25/2016 9:26 PDT ----- Please call patient with xray results. The knee xray shows only early degenerative changes, he does have some calcification of a t endon on the inside of the left knee that might be giving him some of the pain, this would b e easily correct with physical therapy if he would like to go. He shoulder xray looks fine too, but his neck shows some slipped discs with instability - s o when he moves his neck the vertebra move back and forth. My suggest for his shoulder pain since the subacromial injection did not work is to get a cervical MRI documented in this encounter Plan of Treatment Not on filedocumented as of this encounter Visit Diagnoses Not on filedocumented in this encounter"
--- OUTSIDE RECORDS SUMMARY | ~2020-02-08 | XMS | Encounter Summary ---
Demographics + + + | Address | [address] | | | [place] [address] | + + + | Home Phone | | + + + | Preferred Language | Unknown | + + + | Marital Status | Single | + + + | Zoroastrian Affiliation | Unknown | + + + | Race | Unknown | + + + | Ethnic Group | Other Race | + + + Author + + + | Author | [facility] | + + + | Organization | [facility] | + + + | Address | Unknown | + + + | Phone | Unavailable | + + + Care Team Providers + +------+ + | Care Harvester Operator Name | Role | Phone | + +------+ + PCP | Unavailable | + +------+ + Encounter Details +--------+ + + + + | Date | Type | Department | Care Team | Description | +--------+ + + + + | 07/22/ | Hospital | Dermatopathology | | | | 2017 | Encounter | [address] | | | | | | Mailcode: CH16D | | | | | | [facility] | | | | | | and Healing, | | | | | | [address], [address] | | | | | | Floor [place], [place] | | | | | | [address] | | | | | | [phone] | | | +--------+ + + + [...] + | DERM PATHOLOGY | Routin | 07/22/2017 | Other seborrheic | Results for this | | | e | | keratosis Inflamed | procedure are in the | | | | | seborrheic keratosis | results section. | | | | | Basal cell | | | | | | carcinoma of skin of | | | | | | other parts of face | | + +--------+ + + + documented in this encounter Results DERM PATHOLOGY (07/22/2017) + + + + + + | Component | Value | Ref Range | Performed | Pathologist | | | | | At | Signature | + + + + + + | DERMATOPATH | SOURCE OF SPECIMEN:A Lt. | | [facility] | | | OLOGY(WET | medial cheek, shave | | DERMATOPATH | | | MNT) | biopsySOURCE OF | | OLOGY | | | | SPECIMEN:B Lt. mid back, | | | | | | shave biopsySOURCE OF | | | | | | SPECIMEN:C Lt. temporal | | | | | | hairline, shave biopsy | | | | | | CLINICAL | | | | | | DESCRIPTION:A: 4 x 6 mm | | | | | | pink papule; r/o NMSC.B: | | | | | | 8 x 4 mm pink papule; | | | | | | r/o NMSC.C: 4 x 8 mm | | | | | | pink papule; r/o NMSC. | | | | | | GROSS | | | | | | DESCRIPTION:Received in | | | | | | formalin are three | | | | | | specimens labeled | | | | | | Mandeep Diop:A: Specimen | | | | | | is labeled "Lt medial | | | | | | cheek" and consists of | | | | | | an irregular shaveof | | | | | | papular patchy | | | | | | isujo-kyy-zxzrd skin, | | | | | | [id number]. The surgical | | | | | | margin isinked blue; the | | | | | | tissue is bisected, and | | | | | | entirely submitted in | | | | | | cassette A1.B: Specimen | | | | | | is labeled "Lt mid back" | | | | | | and consists of two | | | | | | irregular shavesof | | | | | | papular patchy scaly | | | | | | qhded-ria-kfbri skin, | | | | | | [id number] (inked | | | | | | blue,bisected) and | | | | | | [id number] (inked blue, | | | | | | bisected). Both are | | | | | | entirely submittedin | | | | | | cassette B1.C: Specimen | | | | | | is labeled "Lt temporal | | | | | | hairline" and consists | | | | | | of an irregularshave of | | | | | | papular bds-jvxv-ncl | | | | | | skin, [id number]. The | | | | | | surgical margin is | | | | | | inkedblue; the tissue is | | | | | | bisected, and entirely | | | | | | submitted in cassette | | | | | | C1. MICROSCOPIC | | | | | | DESCRIPTION:A: There is | | | | | | epidermal hyperplasia | | | | | | with horn pseudocysts, | | | | | | interweaving ofthe rete | | | | | | and nuclei of uniform | | | | | | size and shape. B: | | | | | | There is epidermal | | | | | | hyperplasia with horn | | | | | | pseudocysts, | | | | | | interweaving ofthe rete | | | | | | and nuclei of uniform | | | | | | size and shape. A | | | | | | lymphocytic infiltrate | | | | | | ispresent within the | | | | | | dermis and the | | | | | | epithelium. C: | | | | | | There are irregularly | | | | | | sized aggregates of | | | | | | basaloid epithelial | | | | | | cells,some of them with | | | | | | hyperchromatic nuclei | | | | | | and scant cytoplasm. | | | | | | In some areasthere is | | | | | | peripheral nuclear | | | | | | palisading and | | | | | | retraction artifact. | | | | | | DIAGNOSIS:A: | | | | | | SEBORRHEIC | | | | | | KERATOSIS.(LEFT MEDIAL | | | | | | CHEEK) B: | | | | | | SEBORRHEIC KERATOSIS | | | | | | WITH INFLAMMATION.(LEFT | | | | | | MID- BACK) C: | | | | | | BASAL CELL CARCINOMA, | | | | | | NODULAR PATTERN.(LEFT | | | | | | TEMPORAL HAIRLINE) | | | | | | NOTE: The left temporal | | | | | | hairline BASAL CELL | | | | | | CARCINOMA extends to | | | | | | thesurgical margins of | | | | | | the shave specimen and | | | | | | additional treatment to | | | | | | assurecomplete removal | | | | | | would be prudent. | | | | | | My electronic signature | | | | | [...] diagnosis. | | | | | | Electronically signed | | | | | | by: Chevy Stephenson | | | | | | TinoPathologistDate | | | | | | Completed: 07/24/2017 | | | | | | 2:45PM | | | | + + + [...] | + + + + + | [facility] | [address] | [place] [address] | | | DERMATOPATHOLOGY | [address] | | | + + + + + documented in this encounter Visit Diagnoses + + | Diagnosis | + + | Other seborrheic keratosis | + + | Inflamed seborrheic keratosis | + + | Basal cell carcinoma of skin of other parts of face | + + documented in this encounter
--- OUTSIDE RECORDS SUMMARY | ~2020-02-08 | XMS | Encounter Summary ---
Demographics + + + | Address | [address] | | | [place] [address] | + + + | Home Phone | | + + + | Preferred Language | Unknown | + + + | Marital Status | Single | + + + | Protestant Affiliation [...] Team Providers + +------+ + | Care Station Operator Name | Role | Phone | [...] [facility] | | | | | | [facility] | | | | | | and Healing, | | | | | | [address], [address] | | | | | | Floor [place], [place] | | | | | | [address] | | | | | | [phone] | | | +--------+ + + + [...] patchy | | | | | | heds-mfd-cdoan skin, | | | | | | [id number]. The surgical | | | | | [...] papular | | | | | | hgzaa-xaq-rnbcy skin, | | | | | | 7x8i6au. The surgical | | | | | [...] | | | | | | papular resvz-bao-bff | | | | | | skin, 2f2p3or. The | | | | | | [...] [facility] | Mailcode [address] | [place] [address] | | | DERMATOPATHOLOGY | [address] [...]
--- OUTSIDE RECORDS SUMMARY | ~2020-02-08 | XMS | Clinical Summary ---
Demographics + + + | Address | [address] | | | [place] [address] | + + + | Home Phone | | + + + | Preferred Language | Unknown | + + + | Marital Status | Single | + + + | Anglican Affiliation | Unknown | + + + [...] Team Providers + +------+ + | Care Digital Forensic Examiner Name | Role | Phone | + +------+ + PCP | Unavailable | + +------+ + Source Comments JOVANI is fully live on both [facility] Ambulatory and [facility] InPatient.[facility] Allergies Not on File Medications Not on [...] | B | | for | | [place], [place] | | | | | | all | | [address] | | | | | | dates [...] nelda | | | 1 (Home) | [address] | + +--------+ +--------+ + +"
--- OUTSIDE RECORDS SUMMARY | ~2020-02-08 | XMS | Encounter Summary ---
Demographics + + + | Address | [address] | | | [place] [address] | + + + | Home Phone | | + + + | Preferred Language | Unknown | + + + | Marital Status | | + + + | Restorationist Affiliation | Unknown | + + + | Race | Unknown | + + + | Ethnic Group | Unknown | + + + Author + + + | Author | [facility] | | | and [place] | + + + | Organization | [facility] | | | and [...] Team Providers + +------+ + | Care Barrel Plater Name | Role | Phone | + +------+ + | Paolo Pringle MD | PCP | | + +------+ + Encounter Details +--------+ + + + + | Date | Type | Department | Care Team | Description | +--------+ + + + + | 03/10/ | Hospital | [facility] | Mandeep Allred MD | | | 2017 | Encounter | MED CTR OR INTRA OP | [address] | | | | | [address] | [place] | | | | | [place] | [address] | | | | | [address] | [phone] | | | | | [phone] | | | +--------+ + + + [...] | Blood Pressure | 146/69 | 10/12/2016 2:00 PM | | | | | PST | | + + + + + | Pulse | 79 | 10/12/2016 2:02 PM | | | | | PST | | + + + + + | Temperature | 36.9 C (98.4 F) | 10/12/2016 11:20 AM | | | | | PST | | + + + + + | Respiratory Rate | 18 | 10/12/2016 1:30 PM | | | | | PST | | + + + + + | Oxygen Saturation | 98% | 10/12/2016 2:02 PM | | | | | PST | [...] documented in this encounter Discharge Instructions Instructions Quita De Jesus RN - 10/12/2016Drink at least [...] change in history and physical exam . 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 He failed his most recent voidin g [...] by mouth every day; Therapy: 13Aug2016 to (Evaluate:[id number]) Recorded Glucosamine Chondroitin Plus Oral Capsule; Therapy: [...] 1.95 Results/Data Results 27Sep2016 12:45PM Culture, Urine [address] (Rflx) Report Status: Final 09/30/2016 Result: [...] Filt. Rate, Est.: >60 mL/min/1.73m2 FASTING: No [id number] 12:15PM Culture, Urine [address] (Rflx) Report Status: Final 09/20/2016 Result: [...] hernia. Circumci sed penis with indwelling 16 Kyrgyz Lenz. Pendulous scrotum with normal testes and spermat ic cords. External hemorrhoids. 30 g smooth prostate. Legs with mild edema. Signatures Electronically signed by : Mandeep Allred M.D.; Oct 02 2016 12:03PM PST (Author) documented in this enc ounter Procedure Notes Mandeep Allred MD - 10/12/2016 11[facility] Pt. Name/Age/: Mandeep Diop 80 y.o. 1935 Med. Record Number: [id number] Date of admission: 10/12/2016 Date of Operation/Procedure: 10/12/2016 Preoperative Diagnosis: Urinary retention from obstructing prostate [N40.1] Post-Op Diagnosis Codes: [N40.1] Postoperative Diagnosis: Same Surgeon: Mandeep Allred MD Market Basket Maker(s): None Anesthesia Provider(s): Anesthesiologist: Shiv Lyles MD [...] wer e prepped and draped. A 23 Kyrgyz continuous-flow scope was introduced with visual obturator. [...] Signed by: Mandeep Allred MD, 10/12/2016 11:19 [facility] documented in this enc ounter Plan of [...] filedocumented in this encounter Administered Medications + +---------+ [...]
--- OUTSIDE RECORDS SUMMARY | ~2020-02-08 | XMS | Encounter Summary ---
Demographics + + + | Address | [address] | | | [place] [address] | + + + | Home Phone | | + + + | Preferred Language | Unknown | + + + | Marital Status | | + + + | Caodaism Affiliation | Unknown | + + + | Race | Unknown | + + + | Ethnic Group | Unknown | + + + Author + + + | Author | [facility] | | | and [place] | + + + | Organization | [facility] | | | [...] Team Providers + +------+ + | Care Knitting Teacher Name | Role | Phone | + +------+ + PCP | Unavailable | + +------+ + Encounter Details +--------+ + + + + | Date | Type | Department | Care Team | Description | +--------+ + + + + | 01/16/ | Hospital | [facility] | | | | 2009 | Encounter | MED CTR LABORATORY | | | | | | [address] | | | | | | [place] | | | | | | [address] | | | | | | [phone] | | | +--------+ + + + [...] + + + +---------+ + + | ascorbic acid | Take 500 mg by mouth | | 0 | 01/17/20 | | | (VITAMIN C) 500 MG | Daily. | | | 10 | 6 | | tablet | | | | | | + + + +---------+ + + | aspirin (ASPIRIN | Take 81 mg by mouth | | 0 | 01/17/20 | | | LOW DOSE) 81 MG | Daily. | | | 10 | 7 | | tablet | | | | | | + + + +---------+ + + | Cholecalciferol (D | CAPS Take 1 tablet | | 0 | 01/17/20 | | | 1000 PO) | by mouth daily | | | 10 | 6 | + + + +---------+ + + | ezetimibe (ZETIA) | Take 10 mg by mouth | | 0 | 01/17/20 | | | 10 mg tablet | Daily. | | | 10 | 7 | + + + +---------+ + + | Psyllium (REGULOID | CAPS Take 1 tablet | | 0 | 01/17/20 | | | PO) | by mouth daily | | | 10 | 6 | + + + +---------+ + + documented as of this encounter Plan of Treatment Not on filedocumented as of this encounter Visit Diagnoses Not on filedocumented in this encounter"
--- OUTSIDE RECORDS SUMMARY | ~2020-02-08 | XMS | Encounter Summary ---
Demographics + + + | Address | [address] | | | [place] [address] | + + + | Home Phone | | + + + | Preferred Language | Unknown | + + + | Marital Status | | + + + | Gnosticism Affiliation | Unknown | + + + | Race | Unknown | + + + | Ethnic Group | Unknown | + + + Author + + + | Author | [facility] | | | and [place] | + + + | Organization | [facility] | | | [...] Team Providers + +------+ + | Care Motor Setter Name | Role | Phone | + +------+ + | Paolo Pringle MD | PCP | | + +------+ + Encounter Details +--------+ + + + + | Date | Type | Department | Care Team | Description | +--------+ + + + + | 01/22/ | Hospital | [facility] | Alonso, | Chronic left | | 2016 | Encounter | MED CTR XRAY [address] | [address]ICE [address] | shoulder pain | | | | [place] | [address] | | | | | [place] [address] | [place] [address] | | | | | [phone] | [phone] | | | | | | | [...] + +--------+ + + + | XR CERVICAL SPINE 4 | Routin | 01/23/2016 | Chronic left | Results for this | | OR 5 VWS | e | 1:45 PM | shoulder pain | procedure are in the | | | | PDT | | results section. | + +--------+ + + + documented in this encounter Results XR Cervical Spine 4 or 5 Vws (01/23/2016 1:45 PM PDT) + + | Specimen | + + | | + + + + + | Narrative | Performed At | + + + | XR CERVICAL SPINE 4 OR 5 VWS 01/23/2016 1:45 PM HISTORY: shoulder | [facility] | | pain, possible radiation. COMPARISON: None. FINDINGS: | [facility] | | Visualized skull base and facial structures demonstrate no acute | [facility] | | findings. Prevertebral soft tissues are normal. There is mild | - IMAGING | | cervical spondylosis. Mild degenerative changes are present of the | | | anterior atlantoaxial joint. Mild anterolistheses are observed of C4 | | | over C5, C5 over C6, and C6 over C7 that reduces during extension, | | | consistent with mild instability. Bone mineralization is decreased. | | | The dens is normal. Vertebral body height are preserved with no | | | evidence for compression fractures. Disc height are maintained. Facet | | | joints are intact. Soft tissue structures are unremarkable. There is | | | mild right curvature of the thoracic spine. Atherosclerosis is noted | | | of the aorta. IMPRESSION - Mild anterolistheses of C4 over C5, | | | C5 over C6, and C6 over C7 with mild instability. Dictated and | | | Signed by: Johnson Benites MD Electronically signed: 01/23/2016 4:52 | | | PM | | + + + + + | Procedure Note | + + | Simon, Rad Results In - 01/23/2016 4:55 PM PDT XR CERVICAL SPINE 4 OR 5 VWS 01/23/2016 | | 1:45 PMHISTORY: shoulder pain, possible radiation.COMPARISON: None.FINDINGS:Visualized | | skull base and facial structures demonstrate no acute findings.Prevertebral soft tissues | | are normal.There is mild cervical spondylosis. Mild degenerative changes are present of | | theanterior atlantoaxial joint. Mild anterolistheses are observed of C4 over C5, C5over | | C6, and C6 over C7 that reduces during extension, consistent with mildinstability. Bone | | mineralization is decreased. The dens is normal. Vertebralbody height are preserved | | with no evidence for compression fractures. Discheight are maintained. Facet joints are | | intact. Soft tissue structures areunremarkable. There is mild right curvature of the | | thoracic spine.Atherosclerosis is noted of the aorta.IMPRESSION -Mild anterolistheses of | | C4 over C5, C5 over C6, and C6 over C7 with mildinstability.Dictated and Signed by: | | Johnson Benites MD Electronically signed: 01/23/2016 4:52 PM | |over C6, and C6 over C7 that reduces during extension, consistent with mild | |instability. Bone mineralization is decreased. The dens is normal. Vertebral | |body height are preserved with no evidence for compression fractures. Disc | |height are maintained. Facet joints are intact. Soft tissue structures are | |unremarkable. There is mild right curvature of the thoracic spine. | |Atherosclerosis is noted of the aorta. | | | |IMPRESSION - | |Mild anterolistheses of C4 over C5, C5 over C6, and C6 over C7 with mild | |instability. | | | |Dictated and Signed by: Johnson Benites MD | | Electronically signed: 01/23/2016 4:52 PM | + + + + + + + | Performing | Address | City/State/Zipcode | Phone Number | | Organization | | | | + + + + + | [address] | [address] | [place] | [phone] | | [facility] | | [address] | | | - IMAGING | | | | + + + + + documented in this encounter Visit Diagnoses + + | Diagnosis | + + | Chronic left shoulder pain Pain in joint, shoulder region | + + documented in this encounter"
--- OUTSIDE RECORDS SUMMARY | ~2020-02-08 | XMS | Encounter Summary ---
Demographics + + + | Address | [address] | | | [place] [address] | + + + | Home Phone | | + + + | Preferred Language | Unknown | + + + | Marital Status | Single | + + + | Voodoo Affiliation | Unknown | + + + | Race | Unknown | + + + | Ethnic Group | Other Race | + + + Author + + + | Author | [facility] | + + + | Organization | [facility] | + + + | Address | Unknown | + + + | Phone | Unavailable | + + + Care Team Providers + +------+ + | Care Bailer Tenders Supervisor Name | Role | Phone | + +------+ + PCP | Unavailable | + +------+ + Encounter Details +--------+ + + + + | Date | Type | Department | Care Team | Description | +--------+ + + + + | 10/14/ | Documentati | NON-[facility] EPIC | Unknown . | | | 2019 | on | Department | | | +--------+ + + + [...]
--- OUTSIDE RECORDS SUMMARY | ~2020-02-08 | XMS | Encounter Summary ---
Demographics + + + | Address | [address] | | | [place] [address] | + + + | Home Phone | | + + + | Preferred Language | Unknown | + + + | Marital Status | Single | + + + | Rastafarian Affiliation | Unknown | + + + | Race | Unknown | + + + | Ethnic Group | Other Race | + + + Author + + + | Author | [facility] | + + + | Organization | [facility] | + + + | Address | Unknown | + + + | Phone | Unavailable | + + + Care Team Providers + +------+ + | Care High School Coach Name | Role | Phone | + +------+ + PCP | Unavailable | + +------+ + Encounter Details +--------+ + + + + | Date | Type | Department | Care Team | Description | +--------+ + + + + | 10/10/ | Outside | Neurophysiology | Abdifatah Dover | | | 2009 | Referral | EEG at [facility] [address] | | | | Order | [address] | [facility] | | | | | [facility] | [address] [facility] | | | | | [place], [address] | [place] | | | | | [place], [place] | [address] | | | | | [address] | [phone] | | | | | [phone] | | | +--------+ + + + [...] EEG ROUTINE | Procedures | Routin | | 10/07/2009 | | | | e | | | + + +--------+ + + documented as of this encounter Visit Diagnoses Not on filedocumented in this encounter"
--- OUTSIDE RECORDS SUMMARY | ~2020-02-08 | XMS | Encounter Summary ---
Demographics + + + | Address | [address] | | | [place] [address] | + + + | Home Phone | | + + + | Preferred Language | Unknown | + + + | Marital Status | | + + + | Sikhism Affiliation | Unknown | + + + [...] Team Providers + +------+ + | Care Burring Machine Operator Name | Role | Phone | + +------+ + | Paolo Pringle MD | PCP | | + +------+ + Reason for Visit + + + | Reason | Comments | + + + | Follow-up | post right L4-L5 and right L5-S1 TFESI on 01/09/16 | + + + | Back Pain | low back | + + + | Knee Pain | left knee pain | + + + Encounter Details +--------+---------+ + + + | Date | Type | Department | Care Team | Description | +--------+---------+ + + + | 01/22/ | Office | [facility] | Alonso, | Chronic left | | 2016 | Visit | PHYSIATRY [address] | [address] | shoulder pain | | | | [address] [place] | [address] [place] [address] | (Primary Dx); | | | | [place] | [place] [address] | Bilateral lumbar | | | | [address] | [phone] | radiculopathy; | | | | [phone] | | Foraminal stenosis | | | | | | of lumbar region; | | | | | | DDD (degenerative | | | | | | disc disease), | | | | | | lumbar; Chronic pain | | | | | | of both knees; | | | | | | Acute pain of both | | | | | | knees | +--------+---------+ + + + Social History [...] + + + | Blood Pressure | 116/65 | 01/23/2016 12:41 PM | | | | | PDT | | + + + + + | Pulse | 67 | 01/23/2016 12:41 PM | | | | | PDT [...] + + + + | Weight | 75.6 kg (166 lb 9.6 | 01/23/2016 12:41 PM | | | | oz) | PDT | | + + + + + | Height | 180.3 cm (5' 11") | 01/23/2016 12:41 PM | | | | | PDT | | + + + + + | Body Mass Index | 23.24 | 01/23/2016 12:41 PM | | | | | PDT | | + + + + + documented in this encounter Patient Instructions Patient Instructions Geri Gupta PA-C - 01/23/2016 1:10 PM PDTXray of the neck, l eft shoulder and bilateral knees Continue with physical therapy The steroid injection we did in the low back will give you anywhere between 4-6 months of r elief, when the pain returns we can do another injection. Degenerative Disc Disease (DDD): L4/L5 and L5/S1 Degenerative Disc Disease is a term used to describe normal wear an d tear of the spine that occurs with age. The discs between the vertebras (bones) are made of fluid and cartilage that allows you to flex, bend, and twist, they also absorbs shock. Throughout the years, these discs can become flattened and the space between your vertebras become closer together. This can cause disc herniation, spinal stenosis, and arthritis, a long with other complications. Foraminal Stenosis/Radicular Pain: L4/L5 and L5/S1 Foraminal stenosis is a narrowing of the spinal foramen, the hole t hrough which passes a spinal nerve as it exits the spine. It is usually a form of degenera tive spine disease which occurs slowly over time with wear and tear of the spinal column. Ar thritic changes of the spine, a herniated discs, soft tissue swelling and bony growth can al l impinge on the formal foramen and compress the nerve. Because the narrowing (stenosis) of the foramen pinches a nerve, the primary symptoms relat ed to this disorder is directly related to that nerve which is affected. This obviously vari es depending on which foramina are involved. The pinched nerve can lead to basically two c lasses of symptoms. Symptoms include pain in the distribution of that nerve as well as numbn ess, tingling and or weakness can occur. Steroids are a very strong anti-inflammatory, this helps reduce sandy n by reducing swelling. Complications of steroids are bleeding, infection, and an increase of blood sugars if you are diabetic. intermediate frame tender risk can lead to osteoporosis which is why we limited the number of injections to 3 times per year. With an epidural injection, th e nerve root that comes out of the spine and travels down your leg is targeted. The proced ure is about 20 minutes long. You will lie on your back while x-rays are taken. Once the region is marked, it is numbed and then injected with steroids. documented in this encounter Progress Notes Geri Gupta PA-C - 01/23/2016 1:26 PM PDTFormatting of this note might be differe nt from the original. CHIEF COMPLAINT: Chief Complaint Patient presents with Follow-up post right L4-L5 and right L5-S1 TFESI on 01/09/16 Back Pain low back Knee Pain left knee pain HISTORY OF PRESENT ILLNESS: The patient is a 80 y.o. male being seen today for follow up c omplaints of low back pain with radiation into the legs, left greater than right and left sh oulder pain. He recently under went a steroid injection that included a right L4/L5 epidura l and left L5/S1 epidural steroid injection. He received this 01/09/2016 and reports excellen t relief of his leg pain. He has no pain with walking, standing, and doesn't have to stop a nd rest during his 18 hole golf game. When I last saw him he received a left subacromial steroid injection. He reports no relief with this injection. He continues to have pain with use. He cannot use his right arm from an old injury that gave him a arm, so he is compensating with the left shoulder. He reports pain mostly to the left trapezius and into the left shoulder. He continues to part icipate in physical therapy for the left shoulder along with working on his posture. The patient does describe numbness of the legs especially when sitting too long. He does not report weakness of the legs. He does not have bowel and bladder dysfunction. He does not have saddle anesthesia. He also complains of bilateral knee pain, he reports this pain is worse when he is walking and the knees rub against each other, he is finding himself walk bow-legged. Treatments for these complaints have included physical therapy which he did in August, use of Meloxicam which he states is not giving him relief. Patient's medications, allergies, past medical, surgical, social and family histories were reviewed and updated as appropriate. CURRENT MEDICATIONS: Current Outpatient Prescriptions Medication Sig Dispense Refill albuterol-ipratropium (COMBIVENT RESPIMAT) 100-20 mcg/puff inhaler Inhale 1 puff into t he lungs 2 times daily. alfuzosin (UROXATRAL) 10 mg 24 hr tablet Take 10 mg by mouth Daily. (Patient taking dif ferently: Take 10 mg by mouth nightly.) aspirin (ASPIRIN LOW DOSE) 81 MG tablet Take 81 mg by mouth Daily. ezetimibe (ZETIA) 10 mg tablet Take 10 mg by mouth Daily. finasteride (PROSCAR) 5 mg tablet Take 5 mg by mouth Daily. levetiracetam (KEPPRA) 750 MG tablet Take 2 by mouth twice a day. losartan (COZAAR) 50 mg tablet Take 50 mg by mouth Daily. (Patient taking differently: Take 50 mg by mouth 2 times daily.) meloxicam (MOBIC) 15 mg tablet Take 15 mg by mouth Daily. Misc Natural Products (GLUCOSAMINE CHONDROITIN ADV) TABS Take 1 tablet by mouth daily NIFEdipine (ADALAT CC) 30 mg 24 hr tablet Take 30 mg by mouth Daily. (Patient taking di fferently: Take 30 mg by mouth 2 times daily.) No current facility-administered medications for this visit. ALLERGIES: No Known Allergies REVIEW OF SYSTEMS: A multisystem review of system checklist was reviewed with the patient and shows only the p ain and/or parasthesias and other complaints as in HPI. All remaining review of systems was negative. PHYSICAL EXAMINATION: Filed Vitals: 01/23/16 1241 BP: 116/65 Pulse: 67 PainSc: 4 PainLoc: Shoulder Body mass index is 23.25 kg/(m^2). GENERAL: The patient is well developed [...] has no apparent deficits with short or manager terminal memory. He has appropriate fund of knowledge [...] spine. Straight leg raise and slump-sit are negative. Regan's maneuver and impingement testing were negative for any groin pain. There was no tenderness to palpation over the greater tr ochanters or sacral sulci. The patient has no low back pain to localize. Lumbar facet loadi ng was negative. Strength testing showed 5/5 strength throughout the lower extremities. Th e patient was able to heel and toe [...] of the shoulder to review. ASSESSMENT: 1. Chronic left shoulder pain 2. Bilateral lumbar radiculopathy 3. Foraminal stenosis of lumbar region 4. DDD (degenerative disc disease), lumbar 5. Chronic pain of both knees 6. Acute pain of both knees PLAN: 1. The patient did improve greatly from the right L4/L5 and left L5/S1 TFESI. We discussed steroid duration and frequency. 2. He did not get any benefit from the left subacromial steroid injection. We discussed g etting a shoulder xray to evaluate this further, he may benefit from a intraarticular steroi d injection, or the pain may be referred from the neck. 3. He also complains of bilateral knee pain - xrays have been ordered. 4. Because of his poor neck posture I wouldn't be surprised if he is getting referred pain from the neck. ELECTRONICALLY SIGNED BY: Geri Gupta PA-C, 01/23/2016 CC: Harrison do cumented in this encounter Plan of Treatment Not on filedocumented as of this encounter Results XR Cervical Spine 4 [...] + + + + + | [facility] | [address] | [place] | [phone] | | [facility] | | [address] | | | - IMAGING | | | | + + + + + XR Knee Right 4 + Vw (01/23/2016 [...] of the tibial spines is observed. Bone [facility] | | mineralization is normal. There is [...] | Simon, Rad Results In - 01/23/2016 4:52 PM PDT [...] | + + + + + | [facility] | [address] | [place] | [phone] | | [facility] | | [address] | | | - IMAGING | | | | + + + + + XR Shoulder Left 2 + Vw (01/23/2016 [...] There are mild degenerative changes of the [facility] | | joint with hypertrophy. Mild [...] | [address] | [place] | [phone] | | [facility] | | [address] | | | - IMAGING | | | | + + + + + documented in this encounter Visit Diagnoses + + | Diagnosis | + + | Chronic left shoulder pain - Primary Pain in joint, shoulder region | + + | Bilateral lumbar radiculopathy | + + | Foraminal stenosis of lumbar region Spinal stenosis, lumbar region, without | | neurogenic claudication | + + | DDD (degenerative disc disease), lumbar Degeneration of lumbar or lumbosacral | | intervertebral disc | + + | Chronic pain of both knees | + + | Acute pain of both knees | + + documented in this encounter
--- OUTSIDE RECORDS SUMMARY | ~2020-02-08 | XMS | Encounter Summary ---
Demographics + + + | Address | [address] | | | [place] [address] | + + + | Home Phone | | + + + | Preferred Language | Unknown | + + + | Marital Status | | + + + | Gnosticist Affiliation | Unknown | + + + | Race | Unknown | + + + | Ethnic Group | Unknown | + + + Author + + + | Author | [facility] | | | and [place] | + + + | Organization | [facility] | | | [...] Team Providers + +------+ + | Care Laundry Press Operator Name | Role | Phone | + +------+ + | Paolo Pringle MD | PCP | | + +------+ + Reason for Visit Service/Procedure (Routine) +--------+--------+ + + + + | Status | Reason | Specialty | Diagnoses / | Referred By | Referred To | | | | | Procedures | Contact | Contact | +--------+--------+ + + + + | Closed | | Radiology | Diagnoses | | [facility] | | | | | Lumbar | [place], | [address] | | | | | radiculopath | Solo Aguilar MD | [place], | | | | | y | [address] | [place] | | | | | Procedures | [place] | [address] | | | | | IN INJECT | [place] | Phone: | | | | | ANES/STEROID | [address] | [phone] | | | | | FORAMEN | Phone: | Fax: | | | | | LUMBAR/SACRA | [phone] | [phone] | | | | | L W IMG | Fax: | | | | | | GUIDE ,1 | [phone] | | | | | | LEVEL IN | | | | | | | TRIAMCINOLON | | | | | | | E ACET INJ | | | | | | | NOS, 10 MG | | | | | | | IN INJECT | | | | | | | ANES/STEROID | | | | | | | FORAMEN | | | | | | | LUMBAR/SACRA | | | | | | | L W IMG | | | | | | | GUIDE ,EA | | | | | | | ADD LEVEL | | | | | | | Appt 6/6- Rt | | | | | | | L4-5, Lt | | | | | | | L5-S1 TFESI | | | +--------+--------+ + + + + Encounter Details +--------+ + + + + | Date | Type | Department | Care Team | Description | +--------+ + + + + | 01/08/ | Hospital | [facility] | Brittanycz, | DDD (degenerative | | 2016 | Encounter | MED CTR XRAY [address] | [address] | disc disease), | | | | [address] [place] | [address] | lumbar; Foraminal | | | | [place] [address] | [place] [address] | stenosis of lumbar | | | | [phone] | [phone] | region; Bilateral | | | | | | lumbar | | | | | [place] | radiculopathy; | | | | | [place] | Chronic left | | | | | | shoulder pain | +--------+ + + + + Social [...] this encounter Last Filed Vital Signs + +---------+ + + | Vital Sign | Reading | Time Taken | Comments | + +---------+ + + | Blood Pressure | 132/71 | 01/09/2016 1:01 PM | | | | | PDT | | + +---------+ + + | Pulse | - | - | | + +---------+ + + | Temperature | - | - | | + +---------+ + + | Respiratory Rate | - | - | | + +---------+ + + | Oxygen Saturation | - | - | | + +---------+ + + | Inhaled Oxygen | - | - | | | Concentration | | | | + +---------+ + + | Weight | - | - | | + +---------+ + + | Height | - | - | | + +---------+ + + | Body Mass Index | - | - | | + +---------+ + + documented in this encounter Medications at Time [...] + + + +---------+ + + | Thiamine HCl (B-1 | TABS Take one by | | 0 | 04/18/20 | | | PO) | mouth daily | | | 12 | 6 | + + + +---------+ + + documented as of this encounter Plan of Treatment Not on filedocumented as of this encounter Procedures + +--------+ + + + | Procedure Name | Priori | Date/Time | Associated Diagnosis | Comments | | | ty | | | | + +--------+ + + + | FL EPIDURAL STEROID | Routin | 01/09/2016 | DDD (degenerative | Results for this | | INJECTION LUMBAR | e | 1:10 PM | disc disease), | procedure are in the | | TRANSFORAMINAL | | PDT | lumbar Foraminal | results section. | | | | | stenosis of lumbar | | | | | | region Bilateral | | | | | | lumbar radiculopathy | | | | | | Chronic left | | | | | | shoulder pain | | + +--------+ + + + documented in this encounter Results FL [place] Lumbar Transforaminal (01/09/2016 1:10 PM PDT) + + | Specimen | + + | | + + + + + | Narrative | Performed At | + + + | 01/09/2016 Transforaminal Epidural Steroid Injections | [facility] | | Diagnosis: Lumbar radiculopathy ICD-10 Code M54.16 [facility] | [facility] | | Jadon presents to the fluoroscopy suite for fluoroscopically-guided [facility] | | right L4-L5 and right L5-S1 [...] + + | Performing | Address | City/State/[facility] | Phone Number | | Organization | | | | + + + + + | [facility] | [address] | [place] | [phone] | | [facility] | | [address] | | | - IMAGING | | | | + + + + + documented in this encounter Visit Diagnoses + + | Diagnosis | + + | DDD (degenerative disc disease), lumbar Degeneration of lumbar or lumbosacral | | intervertebral disc | + + | Foraminal stenosis of lumbar region Spinal stenosis, lumbar region, without | | neurogenic claudication | + + | Bilateral lumbar radiculopathy | + + | Chronic left shoulder pain Pain in joint, shoulder region | + + documented in this encounter Administered Medications + +--------+ +-------+------+------+ | Medication Order | MAR | Action | Dose | Rate | Site | | | Action | Date | | | | + +--------+ +-------+------+------+ | iohexol (OMNIPAQUE 300) 300 | Given | 01/09/20 | 2 mLs | | | | mg/mL injection 2 mL 2 mL, | | 16 12:55 | | | | | Other, ONCE PRN, Other, Starting | | PM PDT | | | | | Sat01/09/16 at 1240, For 1 dose, | | | | | | | Radiology | | | | | | + +--------+ +-------+------+------+ +---+---+ | | | +---+---+ + +-------+ +-------+---+---+ | lidocaine 1% injection 2 mL 2 | Given | 01/09/20 | 2 mLs | | | | mL, Other, ONCE, Sat01/09/16 at | | 16 12:55 | | | | | 1330, For 1 dose | | PM PDT | | | | + +-------+ +-------+---+---+ +---+---+ | | | +---+---+ + +-------+ +-------+---+ + | lidocaine buffered 1% injection | Given | 01/09/20 | 6 mLs | | Other | | 6 mL 6 mL, Intradermal, ONCE, | | 16 12:50 | | | (Comment | | Sat01/09/16 at 1300, For 1 dose, | | PM PDT | | | ) | | Radiology | | | | | | + +-------+ +-------+---+ + +---+---+ | | | +---+---+ + +-------+ +-------+---+---+ | triamcinolone acetonide | Given | 01/09/20 | 40 mg | | | | (KENALOG-40) 40 mg/mL injection | | 16 12:55 | | | | | 40 mg 40 mg, Intra-articular, | | PM PDT | | | | | ONCE, 01/09/16 at 1330, For 1 | | | | | | | dose, Shake well. Not for IV | | | | | | | use., | | | | | | + +-------+ +-------+---+---+ +---+---+ | | | +---+---+ documented in this encounter"
--- OUTSIDE RECORDS SUMMARY | ~2020-02-08 | XMS | Encounter Summary ---
Demographics + + + | Address | [address] | | | [place] [address] | + + + | Home Phone | | + + + | Preferred Language | Unknown | + + + | Marital Status | Single | + + + | Holiness Affiliation | Unknown | + + + | Race | Unknown | + + + | Ethnic Group | Other Race | + + + Author + + + | Author | [facility] | + + + | Organization | [facility] | + + + | Address | Unknown | + + + | Phone | Unavailable | + + + Care Team Providers + +------+ + | Care Stamp Redemption Clerk Name | Role | Phone | + [...] [id number] | | | | | | [facility] | | | | | | and Healing, | | | | | | Building [address] | | | | | | Floor [place], [place] | | | | | | [address] | | | | | | [phone] | | | +--------+ + + + [...] patchy | | | | | | wekjx-slk-vqlub skin, | | | | | | [id number]. The surgical | | | | | [...] scaly | | | | | | xnyct-mjo-frrfi skin, | | | | | | [id number] (inked | | | | | | blue,bisected) and | | | | | | [id number] (inked blue, | | | | | [...] | | | | | | papular awv-emfp-zyr | | | | | | skin, [id number]. The | | | | | | [...] [facility] | [address] | [place] [address] | | | DERMATOPATHOLOGY | [address] [...]
--- OUTSIDE RECORDS SUMMARY | ~2020-02-08 | XMS | Clinical Summary ---
Demographics + + + | Address | [address] | | | [place] [address] | + + + | Home Phone | | + + + | Preferred Language | Unknown | + + + | Marital Status | | + + + | Rastafarian Affiliation | Unknown | + + + | Race | Unknown | + + + | Ethnic Group | Unknown | + + + Author + + + | Author | [facility] | | | and [place] | + + + | Organization | [facility] | | | [...] Team Providers + +------+ + | Care Youth Care Specialist Name | Role | Phone | + +------+ + | Paolo Pringle MD | PCP | | + +------+ + Allergies No Known Allergies Medications + + + +---------+------+------+-------+ | Medication | Sig | Dispensed | Refills | Star | End | Statu | | | | | | t | Date | s | | | | | | Date | | | + + + +---------+------+------+-------+ | Misc Natural | Take 1 tablet by | | 0 | 06/1 | | Activ | | Products | mouth daily | | | 4/20 | | e | | (GLUCOSAMINE | | | | 10 | | | | CHONDROITIN ADV) | | | | | | | | TABS | | | | | | | + + + +---------+------+------+-------+ | levetiracetam | Take 2 by mouth | | 0 | 061 | | Activ | | (KEPPRA) 750 MG | twice a day. | | | 420 | | e | | tablet | | | | 10 | | | + + + +---------+------+------+-------+ | losartan (COZAAR) | Take 50 mg by mouth | | 0 | 061 | | Activ | | 50 mg tablet | Daily. | | | 4/20 | | e | | | | | | 10 | | | + + + +---------+------+------+-------+ +---+ + | | Additional | | | InformationPatient | | | taking differently: | | | 50 mg Oral 2 TIMES | | | DAILY, Reported on | | | 01/23/2016 12:36 PM | +---+ + + + +---+---+------+---+-------+ | NIFEdipine (ADALAT | Take 30 mg by mouth | | 0 | 01/03 | | Activ | | CC) 30 mg 24 hr | Daily. | | | 11/22 | | e | | tablet | | | | 10 | | | + + +---+---+------+---+-------+ +---+ + | | Additional | | | InformationPatient | | | taking differently: | | | 30 mg Oral 2 TIMES | | | DAILY, Reported on | | | 01/23/2016 12:37 PM | +---+ + + + +---+---+---+---+-------+ | | Inhale 1 puff into | | 0 | | | Activ | | albuterol-ipratropiu | the lungs 2 times | | | | | e | | m (COMBIVENT | daily. | | | | | | | RESPIMAT) 100-20 | | | | | | | | mcg/puff inhaler | | | | | | | + + +---+---+---+---+-------+ | finasteride | Take 5 mg by mouth | | 0 | | | Activ | | (PROSCAR) 5 mg | Daily. | | | | | e | | tablet | | | | | | | + + +---+---+---+---+-------+ | ciprofloxacin | Take 250 mg by mouth | | 0 | | | Activ | | (CIPRO) 250 mg | 2 times daily. | | | | | e | | tablet | | | | | | | + + +---+---+---+---+-------+ | | Take 1 tablet by | | 0 | | | Activ | | sulfamethoxazole-tri | mouth 2 times daily. | | | | | e | | methoprim (BACTRIM | | | | | | | | DS) 800-160 mg per | | | | | | | | tablet | | | | | | | + + +---+---+---+---+-------+ Active Problems + + + | Problem [...] + | Oxygen Saturation | 98% | 03/17/2018 8:09 AM | | | | | PDT [...] | | + + + + + Plan of Treatment + + +-------+ + | Health Maintenance | Due Date | Last | Comments | | | | Done | | + + +-------+ + | Vaccine: | | | | | Dtap/Tdap/Td (1 - | 6 | | | | Tdap) | | | | + + +-------+ + | Vaccine: Zoster (1 | | | | | of 2) | 7 | | | + + +-------+ + | Vaccine: | | | | | Pneumococcal 65+ (1 | 2 | | | | of 1 - PPSV23) | | | | + + +-------+ + | Adult Annual | | | | | Wellness Visit | 5 | | | + + +-------+ + | Statin Therapy | | | | | (optimal intensity) | 5 | | | + + +-------+ + | Vaccine: Influenza | | | | | (#1) | 0 | | | + + +-------+ + Results Not on filefrom Last 3 Months Insurance + +--------+ +--------+ +---------+--------+ | Payer | Benefi | Subscriber | Effect | Phone | Address | Type | | | t Plan | ID | edna | | | | | | / | | Dates | | | | | | Group | | | | | | + +--------+ +--------+ +---------+--------+ | MEDICARE | MEDICA | [id number] | 10/04/19 | [phone] | | Medica | | | RE | | 02-Pre | 5 | | re | | | PART A | | sent | | | | | | AND B | | | | | | + +--------+ +--------+ +---------+--------+ | MEDICARE | MEDICA | [id number] | 10/04/19 | [phone] | | Medica | | | RE | | 02-Pre | 5 | | re | | | PART A | | sent | | | | | | AND B | | | | | | + +--------+ +--------+ +---------+--------+ | | [employer] | [id number] | | [phone] | | Indemn | | | E FOR | | 020-Pr | 0 | | ity | | | LIFE | | esent | | | | + +--------+ +--------+ +---------+--------+ | | [employer] | [id number] | | [phone] | | Indemn | | | E FOR | | 016-Pr | 0 | | ity | | | LIFE | | esent | | | | + +--------+ +--------+ +---------+--------+ + +--------+ +--------+ + + | Guarantor Name | Accoun | Relation to | Date | Phone | Billing Address | | | t Type | Patient | of | | | | | | | | | | + +--------+ +--------+ + + | Mandeep Diop | Person | Self [birth year] | [address] | | | al/Fam | | 1936 | [phone] | [address] [place], [place] | | | [place] | | | [address] (Home) | [address] | + +--------+ +--------+ + + | Mandeep Diop | Person | Self [birth year] | [address] | | | al/Fam | | 1936 | [phone] | [address] [place], [place] | | | [place] | | | [address] (Home) | [address] | + +--------+ +--------+ + + Advance Directives + + + + + | Type | Date Recorded | Patient | Explanation | | | | Outpatient Receptionist | | + + + + + | Power of | | | | | Spike Machine Feeder | | | | + + + + + | Advance | 01/23/2016 1:28 | | | | Directive | PM | | | + + + + + + + + + + | Code Status | Date | Date | Comments | | | Activated | Inactivated | | + + + + + | Full Code | 10/12/2016 | 10/12/2016 | | | | 11:34 AM | 7:34 PM | | + + + + +
--- OUTSIDE RECORDS SUMMARY | ~2020-02-08 | XMS | Encounter Summary ---
Demographics + + + | Address | [address] | | | [place] [address] | + + + | Home Phone [...] Author + + + | Author | [facility] | + + + | Organization | [facility] | + + + | Address | Unknown | + + + | Phone | Unavailable | + + + Care Team Providers + +------+ + | Care Clinic Office Assistant Name | Role | Phone | + [...]
--- OUTSIDE RECORDS SUMMARY | ~2020-02-08 | XMS | Encounter Summary ---
Demographics + + + | Address | [address] | | | [place] [address] | + + + | Home Phone | | + + + | Preferred Language | Unknown | + + + | Marital Status | Single | + + + | Orthodox Affiliation [...] Team Providers + +------+ + | Care Molasses Feed Mixer Name | Role | Phone | + +------+ + PCP | Unavailable | + +------+ + Encounter Details +--------+ + + + + | Date | Type | Department | Care Team | Description | +--------+ + + + + | 10/10/ | Outside | Neurophysiology | Abdifatah Dover | | | 2009 | Referral | EEG at [facility] [address] | | | | Order | [address] | [facility] | | | | | [facility] | [address] [facility] | | | | | [address], [address] | [place] | | | | | [place], [place] | [address] | | | | | [address] | [phone] | | | | | [phone] | | | +--------+ + + + [...]
--- OUTSIDE RECORDS SUMMARY | ~2020-02-08 | XMS | Encounter Summary ---
Demographics + + + | Address | [address] | | | [place] [address] | + + + | Home Phone | | + + + | Preferred Language | Unknown | + + + | Marital Status | | + + + | Sabianist Affiliation | Unknown | + + + | Race | Unknown | + + + | Ethnic Group | Unknown | + + + Author + + + | Author | [facility] | | | and [place] | + + + | Organization | [facility] | | | [...] Team Providers + +------+ + | Care Tempering Kiln Tender Name | Role | Phone | + +------+ + | Paolo Pringle MD | PCP | | + +------+ + Reason for Visit + + + | Reason | Comments | + + + | Foreign Body in Ear | room 2/ left ear | + + + Encounter Details +--------+---------+ + + + | Date | Type | Department | Care Team | Description | +--------+---------+ + + + | 03/17/ | Office | [facility] | Shamir Caputo | Pain in left ear | | 2018 | Visit | CARE [address] | Bar Leon MD | (Primary Dx) | | | | [place] | [address] | | | | | [address] | [place] | | | | | [phone] | [address] | | | | | | | | +--------+---------+ + + + [...] + + + | Blood Pressure | 133/73 | 03/17/2018 8:09 AM | | | | | PDT | | + + + + + | Pulse | 73 | 03/17/2018 8:09 AM | | | | | PDT | | + + + + + | Temperature | 36.2 C (97.1 F) | 03/17/2018 8:09 AM | | | | | PDT | | + + + + + | Respiratory Rate | 20 | 03/17/2018 8:09 AM | | | | | PDT | | + + + + + | Oxygen Saturation | 98% | 03/17/2018 8:09 AM | | | | | PDT | | + + + + + | Inhaled Oxygen | - | - | | | Concentration | | | | + + + + + | Weight | 76.9 kg (169 lb 8.5 | 03/17/2018 8:09 AM | | | | oz) | PDT | | + + + + + | Height | 177.8 cm (5' 10") | 03/17/2018 8:09 AM | | | | | PDT | | + + + + + | Body Mass Index | 24.33 | 03/17/2018 8:09 AM | | | | | PDT | | + + + + + documented in this encounter Patient Instructions Patient Instructions Shamir Caputo Jr., MD - 03/17/2018 8:15 AM PDTRecheck if ne w symptoms develop Follow-up with your primary care doctor documented in this encounter Progress Notes Shamir Caputo Jr., MD - 03/17/2018 8:15 AM PDTMandeep Diop Chief Complaint: Feels like something is in his left ear HPI: Patient wears hearing aids and is concerned that there is any ear piece in his left e ar. He's had no fever. He's had no drainage from the ear. The external ear is nontender. Past medical history, past surgical history, medication reviewed. Physical Exam: No acute distress, alert and oriented, non-toxic in appearance BP 133/73 | Pulse 73 | Temp 36.2 C (97.1 F) (Temporal) | Resp 20 | Ht 1.778 m (5' 1 0") | Wt 76.9 kg (169 lb 8.5 oz) | SpO2 98% | BMI 24.33 kg/m Right ear: Nontender to pressure on the tragus or traction on the helix, canal is normal, t he drum is normal Left ear: No pain with pressure on the tragus or traction on the helix, the canal is noninf lamed there is small amount of wax some of which is removed with a plastic ear loop, no fore ign body is seen, the drum is not inflamed Hurst is midline, air conduction is greater than bone conduction bilaterally Diagnosis: No foreign body found in the left ear Plan: Recheck if new symptoms develop, follow-up with your primary care provider This note dictated with Leanne and was not proofread. Ashli lópez in this encounter Plan of Treatment Not on filedocumented as of this encounter Visit Diagnoses + + | Diagnosis | + + | Pain in left ear - Primary Otalgia, unspecified | + + documented in this encounter
--- OUTSIDE RECORDS SUMMARY | ~2020-02-08 | XMS | Encounter Summary ---
Demographics + + + | Address | [address] | | | [place] [address] | + + + | Home Phone [...] Author + + + | Author | [facility] | + + + | Organization | [facility] | + + + | Address | Unknown | + + + | Phone | Unavailable | + + + Care Team Providers + +------+ + | Care Family Resource Management Professor Name | Role | Phone | + +------+ + PCP | Unavailable | + +------+ + Encounter Details +--------+ + + + + | Date | Type | Department | Care Team | Description | +--------+ + + + + | 05/ | Outside | Neurophysiology | Paolo Pringle | | | 2009 | Referral | EEG at [facility] [address] | [place] | | | | Order | [address] | [address] | | | | | [facility] | [place] [address] | | | | | [address] | [phone] | | | | | [place], [place] | | | | | | [address] | | | | | | [phone] | | | +--------+ + + + [...]
[~2020-02-08 13:48] MED LIST changes: +HYDROCHLOROTH12.5 MG PO; +LUBRICANT EYE1 EAC1 OP; +ROWEEPRA750 MG PO
== END 2020-02-08 15:26 | disposition home or self-care (01) ==
LOC: ED 13:48
DX: K59.00 Constipation, unspecified (principal); I10 Essential (primary) hypertension; J44.9 Chronic obstructive pulmonary disease, unspecified; G47.30 Sleep apnea, unspecified; Z87.891 Personal history of nicotine dependence; Z79.899 Other long term (current) drug therapy; Z79.82 Long term (current) use of aspirin
CPT/HCPCS: 74018; 99283-25

== ENCOUNTER 2021-08-23 07:22 | Emergency (ER) | payer OTHER, MEDICARE ==
[~2021-08-23] VITALS: Ht 180.3 cm; Wt 75.0 kg
--- OUTSIDE RECORDS SUMMARY | 2021-08-23 09:49 | XMS ---
PreManage Notification: RACHNA RICE Security Endless Bed Drum Sander Events No recent Security Events currently on file CRITERIA MET - [facility] - 2 Visits in 30 Days CARE PROVIDERS KANIKA [facility] 07/16/2018-Current PHONE: Unknown Marychuy has no Care Guidelines for this patient. Diane VISIT COUNT (12 MO.) 2 [facility] TOTAL 2 NOTE: Visits indicate total known visits. ED/UCC VISIT TRACKING (12 MO.) 08/23/2021 07:23 [facility] [place] TYPE: Emergency COMPLAINT: - FALL, HAND/KNEES INJURY 08/22/2021 14:03 [facility] [place] TYPE: Emergency COMPLAINT: - FELL, R HAND, BOTH KNEES PAIN/INJURY INPATIENT VISIT TRACKING (12 MO.) No inpatient visits to display in this time frame [email or web address]
== END 2021-08-23 11:07 | disposition home or self-care (01) ==
LOC: ED 07:22
DX: S61.411A Laceration without foreign body of right hand, initial encounter (principal); S80.02XA Contusion of left knee, initial encounter; S80.01XA Contusion of right knee, initial encounter; S20.211A Contusion of right front wall of thorax, initial encounter; W01.10XA Fall on same level from slipping, tripping and stumbling with subsequent striking against unspecified object, initial encounter; I10 Essential (primary) hypertension; G47.30 Sleep apnea, unspecified; J44.9 Chronic obstructive pulmonary disease, unspecified; Z87.891 Personal history of nicotine dependence; Z79.899 Other long term (current) drug therapy; Z79.82 Long term (current) use of aspirin; Z23 Encounter for immunization
CPT/HCPCS: 71101; 73130; 73560; 90471; 90715; 99283-25

== ENCOUNTER 2022-07-18 05:21 | Emergency (ER) | payer MEDICARE, OTHER ==
[~2022-07-18] VITALS: Ht 180.3 cm; Wt 77.2 kg
--- OUTSIDE RECORDS SUMMARY | 2022-07-18 05:23 | XMS ---
PreManage Notification: RACHNA RICE Security Anaesthesiologist Events No recent Security Events currently on file CRITERIA MET - PD[facility] CARE PROVIDERS KANIKA [facility] 08/24/2021-Current PHONE: Unknown Marychuy has no Care Guidelines for this patient. EJanis VISIT COUNT (12 MO.) 3 [facility] TOTAL 3 NOTE: Visits indicate total known visits. 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
[2022-07-18] MEDS ORDERED: ALPRAZOLAM0.5 MG PO (05:34)
== END 2022-07-18 11:42 | disposition home or self-care (01) ==
LOC: ED 05:21
DX: S00.03XA Contusion of scalp, initial encounter (principal); S80.212A Abrasion, left knee, initial encounter; S80.211A Abrasion, right knee, initial encounter; I10 Essential (primary) hypertension; J44.9 Chronic obstructive pulmonary disease, unspecified; G47.30 Sleep apnea, unspecified; Z87.891 Personal history of nicotine dependence; Z79.899 Other long term (current) drug therapy; Z79.82 Long term (current) use of aspirin
CPT/HCPCS: 70450; 96374; 97162; 99284-25; J2060

== ENCOUNTER 2024-09-02 01:54 | Emergency (ER) | payer OTHER, MEDICARE ==
[~2024-09-02] VITALS: Ht 180.3 cm; Wt 66.2 kg
[~2024-09-02 01:54] MED LIST changes: +ALPRAZOLAM0.5 MG PO
[2024-09-02 03:48] VITALS: BP 158/83
== END 2024-09-02 03:50 | disposition home or self-care (01) ==
LOC: ED 01:54
DX: Z04.3 Encounter for examination and observation following other accident (principal); I10 Essential (primary) hypertension; J44.9 Chronic obstructive pulmonary disease, unspecified; F03.90 Unspecified dementia, unspecified severity, without behavioral disturbance, psychotic disturbance, mood disturbance, and anxiety; G20.A1 Parkinson's disease without dyskinesia, without mention of fluctuations; F02.80 Dementia in other diseases classified elsewhere, unspecified severity, without behavioral disturbance, psychotic disturbance, mood disturbance, and anxiety; Z88.8 Allergy status to other drugs, medicaments and biological substances; Z79.82 Long term (current) use of aspirin; Z79.899 Other long term (current) drug therapy
CPT/HCPCS: 71045; 72170; 73030; 99283-25

== ENCOUNTER 2025-04-29 20:43 | Emergency (ER) | payer MEDICARE, OTHER ==
[~2025-04-29] VITALS: Ht 180.3 cm; Wt 61.5 kg
[2025-04-29] MEDS ORDERED: LIDOCAINE/RACEPINEP/TETRACAINE 3 ML SYR TOP ONE (21:00)
[2025-04-29 22:20] VITALS: BP 196/96
[2025-04-29 22:26] LABS: BLOOD/HGB, URINE TRACE-I (Negative); KETONE, URINE NEGATIVE (Negative); LEUK ESTERASE, URINE NEGATIVE (negative); NITRITE, URINE NEGATIVE (negative)
[2025-04-29 22:31] LABS: EPITHELIAL CELLS, URINE SQUAMOUS 1+ /lpf (0-1+)
[2025-04-29 22:32] LABS: BACTERIA, URINE RARE /hpf (negative); CASTS, URINE HYALINE 2+ \\lpf; CRYSTALS, URINE NONE SEEN (0-1+); REFLEX CULTURE, URINE No (No)
== END 2025-04-29 22:23 | disposition home or self-care (01) ==
LOC: ED 20:43
PROVIDERS: Emergency Medicine
DX: S01.01XA Laceration without foreign body of scalp, initial encounter (principal); I10 Essential (primary) hypertension; G47.30 Sleep apnea, unspecified; J44.9 Chronic obstructive pulmonary disease, unspecified; G20.A1 Parkinson's disease without dyskinesia, without mention of fluctuations; G31.83 Neurocognitive disorder with Lewy bodies; F02.C11 Dementia in other diseases classified elsewhere, severe, with agitation; Z91.81 History of falling; Z87.891 Personal history of nicotine dependence; Z88.8 Allergy status to other drugs, medicaments and biological substances; Z79.82 Long term (current) use of aspirin; Z79.899 Other long term (current) drug therapy; W18.30XA Fall on same level, unspecified, initial encounter
CPT/HCPCS: 51701; 51798; 81001; 99283

== ENCOUNTER 2025-05-13 19:37 | Emergency (ER) | payer MEDICARE, OTHER ==
--- OUTSIDE RECORDS SUMMARY | 2025-05-13 19:44 | XMS ---
PreManage Notification: RACHNA RICE Security Adobe Architect Events No recent Security Events currently on file CRITERIA MET - [facility] - 2 Visits in 30 Days CARE PROVIDERS KANIKA [facility] 08/24/2021-Current PHONE: Unknown Marychuy has no Care Guidelines for this patient. Diane VISIT COUNT (12 MO.) 3 [facility] TOTAL 3 NOTE: Visits indicate total known visits. ED/UCC VISIT TRACKING (12 MO.) 05/13/2025 19:38 [facility] [place] TYPE: Emergency COMPLAINT: - FALL 04/29/2025 20:44 [facility] [place] TYPE: Emergency COMPLAINT: - FALL DIAGNOSES: - Allergy status to other drugs, medicaments and biological substances - Chronic obstructive pulmonary disease, unspecified - Dementia in other diseases classified elsewhere, severe, with agitation - Essential (primary) hypertension - Fall on same level, unspecified, initial encounter - History of falling - Laceration without foreign body of other part of head, initial encounter - Laceration without foreign body of scalp, initial encounter - skilled nursing (current) use of aspirin - Neurocognitive disorder with Lewy bodies - Other half-way (current) drug therapy - Parkinson's disease without dyskinesia, without mention of fluctuations - Personal history of nicotine dependence - Sleep apnea, unspecified 09/02/2024 01:59 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
[2025-05-13] MEDS ORDERED: LIDOCAINE/RACEPINEP/TETRACAINE 3 ML SYR TOP ONE (20:00)
[2025-05-13 20:15] VITALS: BP 146/72
== END 2025-05-13 21:17 | disposition home or self-care (01) ==
LOC: ED 19:37
DX: S01.01XA Laceration without foreign body of scalp, initial encounter (principal); G31.83 Neurocognitive disorder with Lewy bodies; G20.A1 Parkinson's disease without dyskinesia, without mention of fluctuations; F02.80 Dementia in other diseases classified elsewhere, unspecified severity, without behavioral disturbance, psychotic disturbance, mood disturbance, and anxiety; I10 Essential (primary) hypertension; G47.30 Sleep apnea, unspecified; J44.9 Chronic obstructive pulmonary disease, unspecified; Z66 Do not resuscitate; Z87.891 Personal history of nicotine dependence; Z88.8 Allergy status to other drugs, medicaments and biological substances; Z79.82 Long term (current) use of aspirin; Z79.899 Other long term (current) drug therapy; W18.30XA Fall on same level, unspecified, initial encounter
CPT/HCPCS: 12001; 99283